=== PATIENT | female | born 1940 | race Caucasian/White ===

== ENCOUNTER → 2018-02-26 13:18 | Outpatient (CLI) | payer MEDICARE, MEDICAID, SELFPAY ==
[2018-02-26 14:45] LABS: Ferritin 27 ng/mL (8-388)
== END ==
PROVIDERS: PCP Nurse Practitioner; Visit Provider Nurse Practitioner
DX: M25.50 Pain in unspecified joint (principal)
CPT/HCPCS: 82728

== ENCOUNTER → 2018-03-08 14:25 | Outpatient (CLI) | payer MEDICARE, MEDICAID, SELFPAY ==
--- NOTE | 2018-03-08 14:27 | DI.REPORT_ITS ---
SYMPTOMS/DIAGNOSIS: RT SHOULDER JOINT PAIN, M25.511 RIGHT SHOULDER: Six views were obtained. The bones are markedly demineralized. There are degenerative changes of the acromioclavicular and glenohumeral joints. There is no evidence of acute fracture or dislocation.
== END ==
PROVIDERS: PCP Nurse Practitioner; Visit Provider Nurse Practitioner
DX: M25.511 Pain in right shoulder (principal); M19.011 Primary osteoarthritis, right shoulder
CPT/HCPCS: 73030

== ENCOUNTER 2018-03-16 12:47 | Outpatient (REF) | payer MEDICARE, MEDICAID, SELFPAY ==
[2018-03-16 19:00] LABS: HCT 39.6 % (36.0-46.0); HGB 12.3 g/dL (12.0-15.5); Mean Corp. HGB Concentration 31.1 g/dL (32.0-36.0); Mean Corpuscular Hemoglobin 27.8 pg (27.0-33.0); Mean Corpuscular Volume 89.6 fL (80-95); Mean Platelet Volume 11.3 fL (8.0-11.0); Platelet Count 202 x1000/uL (130-400); RBC 4.42 m/cumm (4.00-5.20); RBC Distribution Width 16.2 % (11.7-14.6); White Blood Cell Count 6.76 k/cumm (4.4-10.8)
[2018-03-16 19:08] LABS: Iron 72 ug/dL (50-175); Total Iron Binding Capacity 376 ug/dL (250-450); Transferrin Sat 19 % (15-50)
[2018-03-16 19:36] LABS: Ferritin 36 ng/mL (8-388); Vitamin B12 653 pg/mL (193-986)
[2018-03-18 11:01] LABS: Vitamin D 25 Total 15.9 ng/ml (30-100)
== END 2018-03-16 12:48 ==
LOC: NCHCN 12:47
PROVIDERS: PCP Nurse Practitioner; Visit Provider Nurse Practitioner
DX: E61.1 Iron deficiency (principal); N18.3 Chronic kidney disease, stage 3 (moderate)
CPT/HCPCS: 82306; 85027; 82607; 82728; 83540; 83550

== ENCOUNTER 2018-04-02 19:39 | Emergency (ER) | payer MEDICARE, MEDICAID, SELFPAY ==
[2018-04-02 19:44] VITALS: BP 176/78; PULSE 64; RESP 18; TEMP 36.4; O2SAT 96
== END 2018-04-02 20:55 ==
PROVIDERS: PCP Nurse Practitioner
DX: Z53.21 Procedure and treatment not carried out due to patient leaving prior to being seen by health care provider (principal)

== ENCOUNTER → 2018-04-03 10:41 | Outpatient (BNVA) | payer MEDICARE, MEDICAID, SELFPAY | PROVIDERS: PCP Nurse Practitioner; Visit Provider Urology | DX: N39.0 Urinary tract infection, site not specified (principal); B96.20 Unspecified Escherichia coli [E. coli] as the cause of diseases classified elsewhere; R33.9 Retention of urine, unspecified; Z87.440 Personal history of urinary (tract) infections | CPT/HCPCS: 99213 ==

== ENCOUNTER 2018-04-03 11:38 | Emergency (ER) | payer MEDICARE, MEDICAID, SELFPAY ==
[2018-04-03 11:44] VITALS: BP 139/72; PULSE 69; RESP 16; TEMP 37
--- NOTE | 2018-04-03 11:58 | DI.RAD_ITS ---
SYMPTOMS/DIAGNOSIS: PAIN, FALL RIGHT HUMERUS: There is no evidence of a fracture or dislocation. RIGHT SHOULDER: Degenerative changes are identified. There is no evidence of an acute fracture or dislocation.
--- NOTE | 2018-04-03 12:16 | W.ED.GENAD ---
Discharge Plan Disposition Patient Disposition: HOME Condition: Stable Discharge Details Chief Complaint: Orthopedic Clinical Impression: Osteoarthritis of right shoulder, Contusion of arm, right Primary Care Provider: Sabine Ludwig ED Provider: Jonas Cowart Home Meds and New Rx's Prescriptions: Continue cephalexin [Keflex] 250 mg capsule 250 mg PO Q8H Qty: 15 RF: 0 levothyroxine 200 MCG tablet 200 mcg PO DAILY RF: 0 meclizine 12.5 MG tablet 25 mg PO DAILY PRNRF: 0 magnesium hydroxide [Milk of Magnesia] 400 MG/5 ML suspension 5 ml PO PRN RF: 0 bupropion HCl [Wellbutrin SR] 100 MG tablet extended release 12 hr 100 mg PO DAILY RF: 0 fluoxetine [Prozac] 20 MG capsule 40 mg PO DAILY RF: 0 estradiol [Estrace] 42.5 GM cream 2 g VG twice weekly Qty: 1 RF: 0 hydrocortisone 28.35 GM cream 1 applic Topical BID 30 Days Qty: 1 RF: 0 clobetasol-emollient 15 GM cream 15 gm Topical BID Qty: 1 RF: 3 isosorbide mononitrate 30 MG tablet extended release 24 hr 30 mg PO DAILY RF: 0 omeprazole 20 MG capsule,delayed release(DR/EC) 40 mg PO DAILY@0730 RF: 0 rosuvastatin [Crestor] 10 MG tablet 10 mg PO QPM RF: 0 ropinirole 1 mg Tablet 1 mg PO DAILY RF: 0 acetaminophen 500 mg Tablet 1,000 mg PO BID RF: 0 aspirin 81 mg Tablet,Chewable 81 mg PO DAILY RF: 0 Discharge Instructions Instructions: Contusion in Adults (ED), Arthritis (ED) Additional Instructions: If not improving over the next 2-4 weeks follow-up with your primary care provider for reassessment. Referrals: Sabine Ludwig [Primary Care Provider] - (As needed for reassessment or if not improving) Discharge Data Discharge Date/Time-TO BE ENTERED AT DEPARTURE: 04/03/18 13:33 Medical Decision Making MDM Narrative Medical decision making narrative: Patient presenting to emergency department status post fall 1 month ago. Daughters states that patient has significant severe dementia but has been continuing to complain of right shoulder and arm pain. She states that patient is alert and oriented to person only but also does exaggerate pain response. She is concerned for possible missed fracture as initially patient had not been complaining of discomfort to her shoulder more to her neck. Physical exam does reveal some pain to palpation to the shoulder which is difficult to isolate and painful range of motion of the shoulder. Patient is able to perform all range of motion activities but due to discomfort and tenderness to shoulder height do feel that radiological imaging is warranted. Review of radiological imaging that shows no acute fracture but does show significant degenerative disease I feel that patient's fall may have aggravated her arthritis. Family was encouraged to continue use already prescribed acetaminophen for her arthritis and if not improving over the next couple weeks to follow-up for reassessment. After discussion of diagnosis and plan of care daughter states that she feels reassured that there is no fracture and agrees with plan of care and states no further needs, questions, or concerns at this time. HPI - General Adult General Mode of arrival: ambulatory. Date/Time Provider Initiated Documentation: 04/03/18 11:47. Limitations to Documentation: no limitations. Information obtained by: patient, family, RN notes reviewed and old records reviewed. History of Present Illness 77 year old F presents to the emergency department with the chief complaint of Right shoulder pain status post fall, described as moderate, with intensity rated at 7. Quality is described as aching, and is localized to the right and upper extremity. Patient reports no radiation. Patient started experiencing this month(s) (1) and it has been constant. No relieving factors improve symptom(s), No exacerbating factors reported . Patient notes no other symptoms.. Patient did receive the following treatments prior to arrival, none Related Data Home Medications Medication Instructions Recorded Confirmed levothyroxine 200 mcg PO DAILY tab-cap 08/11/14 04/03/18 meclizine 25 mg PO DAILY PRN tab-cap 10/01/15 04/03/18 isosorbide mononitrate 30 mg PO DAILY 10/12/15 04/03/18 omeprazole 40 mg PO DAILY@0730 10/12/15 04/03/18 bupropion HCl [Wellbutrin SR] 100 mg PO DAILY 12/15/17 04/03/18 fluoxetine [Prozac] 40 mg PO DAILY tab-cap 12/15/17 04/03/18 magnesium hydroxide [Milk of 5 ml PO PRN ml 12/15/17 04/03/18 Magnesia] rosuvastatin [Crestor] 10 mg PO QPM 01/26/18 04/03/18 acetaminophen 1,000 mg PO BID 04/02/18 04/03/18 ropinirole 1 mg PO DAILY 04/02/18 04/03/18 aspirin 81 mg PO DAILY 04/03/18 04/03/18 Previous Rx's Medication Instructions Recorded estradiol [Estrace] 2 g VG twice weekly #1 tube 12/28/17 clobetasol-emollient 15 gm TOPICAL BID #1 tube 01/25/18 hydrocortisone 1 applic TOPICAL BID 30 Days #1 gm 01/25/18 cephalexin 250 mg capsule 250 mg PO Q8H #15 cap 04/03/18 Allergies Allergy/AdvReac Type Severity Reaction Status Date / Time influenza virus vaccine, Allergy Severe SOB Unverified 04/03/18 11:47 specific [Influenza Virus Vacc,Specific] fentanyl [From Duragesic] Allergy Intermediate Hives Unverified 04/03/18 11:47 hydrocodone Allergy Intermediate Itching Unverified 04/03/18 11:47 codeine [Codeine] AdvReac Severe Psychosis Unverified 04/03/18 12:00 General Stated Complaint: Orthopedic YADI: 4 Review of Systems Constitutional Denies body ache(s), Denies chills and Denies fever(s) Cardiovascular Denies chest pain and Denies dyspnea Respiratory Denies dyspnea Gastrointestinal Denies abdominal pain, Denies nausea and Denies vomiting Musculoskeletal Reports as per HPI, Reports myalgias (Right upper arm) and Reports arthralgias (Right upper arm) Neurologic Reports confusion and Denies sensory deficit Psychiatric Reports confusion Hematologic/Lymphatic Reports other (Ecchymosis to right upper arm) PFSH Social History Smoking/Tobacco Use Status: Former Tobacco Use alcohol intake: former substance use type: does not use Surgical History Abdominal hysterectomy Wilks (Incontinence sling) Cerebral aneurysm clipping Colonoscopy - MAC EGD - MAC Open Carpal Tunnel release (11/25/15) Repair of inguinal hernia Replacement of total knee joint venacaval filter Exam Const General: cooperative, no acute distress and not ill appearing Orientation: alert and awake HENMT Mouth: moist mucous membranes Resp Effort & Inspection: normal respiratory effort, able to speak in complete sentences and no respiratory distress Auscultation: clear to auscultation bilaterally Cardio Rate: regular rate Rhythm: regular rhythm Heart Sounds: S1 normal and S2 normal Skin General skin exam: no rashes or lesions noted Neuro General: alert, awake, not oriented x3, moves all extremities and no focal motor deficits Sensory Exam: no sensory deficits noted Extrem Right upper extremity: shoulder/upper arm Details: tenderness Location: of the A-C joint, of the proximal humerus and of the scapula and abnormal ROM Details: pain with active ROM Details: in ABduction and in extension and pain with passive ROM Details: with ABduction and with extension, elbow/forearm Details: normal to inspection, wrist Details: normal to inspection and hand Details: normal to inspection Left upper extremity: normal to inspection Course Vital Signs Temperature 37 C 04/03/18 11:44 Pulse 69 04/03/18 11:44 Respiratory Rate 16 04/03/18 11:44 Blood Pressure 139/72 04/03/18 11:44 Temperature 37 C 04/03/18 11:44 Pulse 69 04/03/18 11:44 Respiratory Rate 16 04/03/18 11:44 Blood Pressure 139/72 04/03/18 11:44
--- NOTE | 2018-04-03 12:20 | ED.GENADUL_ITS ---
Discharge Plan Disposition Patient Disposition: HOME Condition: Stable Discharge Details Chief Complaint: Orthopedic Clinical Impression: Osteoarthritis of right shoulder, Contusion of arm, right Primary Care Provider: Sabine Ludwig ED Provider: Jonas Cowart Home Meds and New Rx's Prescriptions: Continue cephalexin [Keflex] 250 mg capsule 250 mg PO Q8H Qty: 15 RF: 0 levothyroxine 200 MCG tablet 200 mcg PO DAILY RF: 0 meclizine 12.5 MG tablet 25 mg PO DAILY PRNRF: 0 magnesium hydroxide [Milk of Magnesia] 400 MG/5 ML suspension 5 ml PO PRN RF: 0 bupropion HCl [Wellbutrin SR] 100 MG tablet extended release 12 hr 100 mg PO DAILY RF: 0 fluoxetine [Prozac] 20 MG capsule 40 mg PO DAILY RF: 0 estradiol [Estrace] 42.5 GM cream 2 g VG twice weekly Qty: 1 RF: 0 hydrocortisone 28.35 GM cream 1 applic Topical BID 30 Days Qty: 1 RF: 0 clobetasol-emollient 15 GM cream 15 gm Topical BID Qty: 1 RF: 3 isosorbide mononitrate 30 MG tablet extended release 24 hr 30 mg PO DAILY RF: 0 omeprazole 20 MG capsule,delayed release(DR/EC) 40 mg PO DAILY@0730 RF: 0 rosuvastatin [Crestor] 10 MG tablet 10 mg PO QPM RF: 0 ropinirole 1 mg Tablet 1 mg PO DAILY RF: 0 acetaminophen 500 mg Tablet 1,000 mg PO BID RF: 0 aspirin 81 mg Tablet,Chewable 81 mg PO DAILY RF: 0 Discharge Instructions Instructions: Contusion in Adults (ED), Arthritis (ED) Additional Instructions: If not improving over the next 2-4 weeks follow-up with your primary care provider for reassessment. Referrals: Sabine Ludwig [Primary Care Provider] - (As needed for reassessment or if not improving) Discharge Data Discharge Date/Time-TO BE ENTERED AT DEPARTURE: 04/03/18 13:33 Medical Decision Making MDM Narrative Medical decision making narrative: Patient presenting to emergency department status post fall 1 month ago. Daughters states that patient has significant severe dementia but has been continuing to complain of right shoulder and arm pain. She states that patient is alert and oriented to person only but also does exaggerate pain response. She is concerned for possible missed fracture as initially patient had not been complaining of discomfort to her shoulder more to her neck. Physical exam does reveal some pain to palpation to the shoulder which is difficult to isolate and painful range of motion of the shoulder. Patient is able to perform all range of motion activities but due to discomfort and tenderness to shoulder height do feel that radiological imaging is warranted. Review of radiological imaging that shows no acute fracture but does show significant degenerative disease I feel that patient's fall may have aggravated her arthritis. Family was encouraged to continue use already prescribed acetaminophen for her arthritis and if not improving over the next couple weeks to follow-up for reassessment. After discussion of diagnosis and plan of care daughter states that she feels reassured that there is no fracture and agrees with plan of care and states no further needs, questions, or concerns at this time. HPI - General Adult General Mode of arrival: ambulatory . Date/Time Provider Initiated Documentation: 04/03/18 11:47 . Limitations to Documentation: no limitations . Information obtained by: patient, family, RN notes reviewed and old records reviewed . History of Present Illness 77 year old F presents to the emergency department with the chief complaint of Right shoulder pain status post fall, described as moderate, with intensity rated at 7. Quality is described as aching, and is localized to the right and upper extremity. Patient reports no radiation. Patient started experiencing this month(s) (1) and it has been constant. No relieving factors improve symptom(s), No exacerbating factors reported . Patient notes no other symptoms.. Patient did receive the following treatments prior to arrival, none Related Data Home Medications Medication Instructions Recorded Confirmed levothyroxine 200 mcg PO DAILY tab-cap 08/11/14 04/03/18 meclizine 25 mg PO DAILY PRN tab-cap 10/01/15 04/03/18 isosorbide mononitrate 30 mg PO DAILY 10/12/15 04/03/18 omeprazole 40 mg PO DAILY@0730 10/12/15 04/03/18 bupropion HCl [Wellbutrin SR] 100 mg PO DAILY 12/15/17 04/03/18 fluoxetine [Prozac] 40 mg PO DAILY tab-cap 12/15/17 04/03/18 magnesium hydroxide [Milk of 5 ml PO PRN ml 12/15/17 04/03/18 Magnesia] rosuvastatin [Crestor] 10 mg PO QPM 01/26/18 04/03/18 acetaminophen 1,000 mg PO BID 04/02/18 04/03/18 ropinirole 1 mg PO DAILY 04/02/18 04/03/18 aspirin 81 mg PO DAILY 04/03/18 04/03/18 Previous Rx's Medication Instructions Recorded estradiol [Estrace] 2 g VG twice weekly #1 tube 12/28/17 clobetasol-emollient 15 gm TOPICAL BID #1 tube 01/25/18 hydrocortisone 1 applic TOPICAL BID 30 Days #1 gm 01/25/18 cephalexin 250 mg capsule 250 mg PO Q8H #15 cap 04/03/18 Allergies Allergy/AdvReac Type Severity Reaction Status Date / Time influenza virus vaccine, Allergy Severe SOB Unverified 04/03/18 11:47 specific [Influenza Virus Vacc,Specific] fentanyl [From Duragesic] Allergy Intermediate Hives Unverified 04/03/18 11:47 hydrocodone Allergy Intermediate Itching Unverified 04/03/18 11:47 codeine [Codeine] AdvReac Severe Psychosis Unverified 04/03/18 12:00 General Stated Complaint: Orthopedic YADI: 4 Review of Systems Constitutional Denies body ache(s), Denies chills and Denies fever(s) Cardiovascular Denies chest pain and Denies dyspnea Respiratory Denies dyspnea Gastrointestinal Denies abdominal pain, Denies nausea and Denies vomiting Musculoskeletal Reports as per HPI, Reports myalgias (Right upper arm) and Reports arthralgias ( Right upper arm) Neurologic Reports confusion and Denies sensory deficit Psychiatric Reports confusion Hematologic/Lymphatic Reports other (Ecchymosis to right upper arm) PFSH Social History Smoking/Tobacco Use Status: Former Tobacco Use alcohol intake: former substance use type: does not use Surgical History Abdominal hysterectomy Wilks (Incontinence sling) Cerebral aneurysm clipping Colonoscopy - MAC EGD - MAC Open Carpal Tunnel release (11/25/15) Repair of inguinal hernia Replacement of total knee joint venacaval filter Exam Const General: cooperative, no acute distress and not ill appearing Orientation: alert and awake HENMT Mouth: moist mucous membranes Resp Effort & Inspection: normal respiratory effort, able to speak in complete sentences and no respiratory distress Auscultation: clear to auscultation bilaterally Cardio Rate: regular rate Rhythm: regular rhythm Heart Sounds: S1 normal and S2 normal Skin General skin exam: no rashes or lesions noted Neuro General: alert, awake, not oriented x3, moves all extremities and no focal motor deficits Sensory Exam: no sensory deficits noted Extrem Right upper extremity: shoulder/upper arm Details: tenderness Location: of the A -C joint, of the proximal humerus and of the scapula and abnormal ROM Details: pain with active ROM Details: in ABduction and in extension and pain with passive ROM Details: with ABduction and with extension, elbow/forearm Details: normal to inspection, wrist Details: normal to inspection and hand Details: normal to inspection Left upper extremity: normal to inspection Course Vital Signs Temperature 37 C 04/03/18 11:44 Pulse 69 04/03/18 11:44 Respiratory Rate 16 04/03/18 11:44 Blood Pressure 139/72 04/03/18 11:44 Temperature 37 C 04/03/18 11:44 Pulse 69 04/03/18 11:44 Respiratory Rate 16 04/03/18 11:44 Blood Pressure 139/72 04/03/18 11:44
== END 2018-04-03 13:33 | disposition home or self-care (01) ==
PROVIDERS: Emergency Provider Nurse Practitioner Family; PCP Nurse Practitioner
DX: M19.011 Primary osteoarthritis, right shoulder (principal); S40.021A Contusion of right upper arm, initial encounter; W01.0XXA Fall on same level from slipping, tripping and stumbling without subsequent striking against object, initial encounter; F03.90 Unspecified dementia, unspecified severity, without behavioral disturbance, psychotic disturbance, mood disturbance, and anxiety
CPT/HCPCS: 99213; 99284; 73030; 73060; 99282

== ENCOUNTER 2018-04-03 16:45 | Outpatient (REF) | payer MEDICARE, MEDICAID, SELFPAY | END 2018-04-03 17:05 | LOC: LBN 16:45 | PROVIDERS: PCP Nurse Practitioner; Visit Provider Urology | DX: N39.0 Urinary tract infection, site not specified (principal) | CPT/HCPCS: 87077; 87086; 87186 ==

== ENCOUNTER → 2018-05-22 08:30 | Outpatient (BNVA) | payer MEDICARE, MEDICAID, SELFPAY | PROVIDERS: PCP Nurse Practitioner; Referring Provider Nurse Practitioner; Visit Provider Orthopaedic Surgery | DX: G56.01 Carpal tunnel syndrome, right upper limb (principal) | CPT/HCPCS: 20605; 99211; 99213; J1040 ==

== ENCOUNTER → 2018-12-21 15:01 | Outpatient (BNVA) | payer MEDICARE, MEDICAID, SELFPAY | PROVIDERS: PCP Nurse Practitioner; Visit Provider Urology | DX: R33.9 Retention of urine, unspecified (principal); Z87.440 Personal history of urinary (tract) infections; J44.9 Chronic obstructive pulmonary disease, unspecified | CPT/HCPCS: 99213 ==

== ENCOUNTER 2019-01-28 08:23 | Emergency (ER) | payer MEDICARE, MEDICAID, SELFPAY ==
[2019-01-28 08:30] VITALS: PULSE 89; RESP 18; TEMP 36.4; O2SAT 96
--- NOTE | 2019-01-28 08:42 | DI.RAD_ITS ---
SYMPTOMS/DIAGNOSIS: FALL ON OUTSTRETCHED HAND, PAIN DISTAL ULNA RIGHT WRIST: Three views. No acute fracture or dislocation is seen. There are degenerative changes seen in the wrist, particularly the distal radial ulnar joint. No radiopaque foreign bodies are seen in the soft tissues. IMPRESSION: No acute fracture or dislocation.
--- NOTE | 2019-01-28 09:26 | ED.GENADUL_ITS ---
Discharge Plan Disposition Patient Disposition: HOME Condition: Good Discharge Details Chief Complaint: Orthopedic Clinical Impression: Right wrist sprain, Hand tingling Primary Care Provider: Sabine Ludwig ED Provider: Charan Sorensen Home Meds and New Rx's Prescriptions: No Action cephalexin [Keflex] 250 mg capsule 250 mg PO Q8H Qty: 15 RF: 0 levothyroxine 200 MCG tablet 200 mcg PO DAILY RF: 0 bupropion HCl [Wellbutrin SR] 100 MG tablet extended release 12 hr 100 mg PO DAILY RF: 0 fluoxetine [Prozac] 20 MG capsule 40 mg PO DAILY RF: 0 meclizine 12.5 mg tablet 12.5 mg PO DAILY PRN (Reason: dizziness) Qty: 90 RF: 1 isosorbide mononitrate 30 MG tablet extended release 24 hr 30 mg PO DAILY RF: 0 omeprazole 20 MG capsule,delayed release(DR/EC) 40 mg PO DAILY@0730 RF: 0 rosuvastatin [Crestor] 10 MG tablet 10 mg PO QPM RF: 0 aspirin 81 mg Tablet,Chewable 81 mg PO DAILY RF: 0 Discharge Instructions Instructions: Wrist Sprain (ED) Additional Instructions: Your x-rays at this time show no evidence of significant fracture per radiology, however with your continued pain as well as her tingling we recommend that you continue using your wrist splint, and follow-up with orthopedics. Orthopedics will contact you for your appointment. Please continue to take Tylenol as needed for pain. If you notice any worsening of your symptoms, or any new symptoms such as vomiting, diarrhea, fever, chills, shortness of breath, chest pain, numbness, weakness, or fainting , please return immediately to the emergency department for reevaluation. Please follow up with your primary care provider as soon as possible for reassessment and reevaluation. As always, it was a pleasure participating in your medical care today. Referrals: Sabine Luwdig [Primary Care Provider] - Discharge Data Discharge Date/Time-TO BE ENTERED AT DEPARTURE: 01/28/19 09:36 Medical Decision Making This is a pleasant 78-year-old female who is [id number] who presents today for evaluation of right wrist pain. 1 week ago she experienced a FOOSH, and since then has had pain in her wrist exacerbated by movement of her thumb, movement of her wrist and gripping. She has been wearing a wrist splint since the initial event, and has been taking occasional NSAIDs but this is not improved her pain. She also has subjective tingling in all fingers, not just over the median nerve distribution. Exam demonstrates reproducible tenderness at the distal radius and ulna, as well as the proximal aspect of the medial and lateral carpals. There is also tenderness over the anatomical snuffbox. Sensation appears to be intact despite subjective tingling. X-ray was performed and shows no evidence of acute fracture or other abnormality. There is a small atypical component on the oblique view of the distal radius, however review with Dr. Rivero states that there is no evidence of fracture here. Patient will be continued in her splint, and because of her subjective tingling and continued pain we will refer to orthopedics. I suspect mild carpal tunnel exacerbation with her sensation tingling, however the distribution is atypical for just the median nerve alone. There is also concern for scaphoid injury with the location of her pain and tenderness, however the patient is preferring her current splint, which I do feel is reasonably appropriate at this time with her injury pattern. We will recommend close follow-up with orthopedics. We discussed red flags which to return. I have extensively reviewed the treatment plan and discharge instructions with the patient and their family. I have addressed all patient concerns at this time. The patient and family was made aware of what symptoms to monitor for that would warrant a return to the emergency department. Discussed the plan with the patient and family, they demonstrate verbal understanding and agreement with our assessment and plan at this time. HPI General Date/Time Provider Initiated Documentation: 01/28/19 08:24 . HPI Narrative: This is a 78-year-old female with a past medical history of renal insufficiency, previous GI bleeds, hypothyroidism, who presents today for evaluation of right wrist pain. She is right-hand dominant. 1 week ago she fell on an outstretched hand. At that time she described pain in her lateral wrist at the distal radius, and ulna. Pain is notably made worse with movement of her thumb and fingers. She has some associating tingling in all fingers, including the thumb index and third fourth and fifth digits. She has been taking occasional NSAIDs, and has been wearing a home wrist splint at all times. Unfortunately in spite of this the patient's pain continues. It is made worse with movement, gripping, and use. It does not appear to be particularly improved by anything. She denies any pain in the forearm or elbow. She denies any pain in the hand or fingers. She has no other complaints at this time. No other modifying factors. Related Data Home Medications Medication Instructions Recorded Confirmed levothyroxine 200 mcg PO DAILY tab-cap 08/11/14 01/28/19 isosorbide mononitrate 30 mg PO DAILY 10/12/15 01/28/19 omeprazole 40 mg PO DAILY@0730 10/12/15 01/28/19 bupropion HCl [Wellbutrin SR] 100 mg PO DAILY 12/15/17 01/28/19 fluoxetine [Prozac] 40 mg PO DAILY tab-cap 12/15/17 01/28/19 rosuvastatin [Crestor] 10 mg PO QPM 01/26/18 01/28/19 aspirin 81 mg PO DAILY 04/03/18 01/28/19 meclizine 12.5 mg tablet 12.5 mg PO DAILY PRN #90 tab-cap 10/01/18 01/28/19 cephalexin 250 mg capsule 250 mg PO Q8H #15 cap 12/21/18 01/28/19 Previous Rx's Medication Instructions Recorded meclizine 12.5 mg tablet 12.5 mg PO DAILY PRN #90 tab-cap 10/01/18 cephalexin 250 mg capsule 250 mg PO Q8H #15 cap 12/21/18 Allergies Allergy/AdvReac Type Severity Reaction Status Date / Time influenza virus vaccine, Allergy Severe SOB Unverified 04/03/18 11:47 specific [Influenza Virus Vacc,Specific] fentanyl [From Duragesic] Allergy Intermediate Hives Unverified 04/03/18 11:47 hydrocodone Allergy Intermediate Itching Unverified 04/03/18 11:47 codeine [Codeine] AdvReac Severe Psychosis Unverified 04/03/18 12:00 General Stated Complaint: Orthopedic YADI: 4 Review of Systems Review of Systems All systems reviewed & are unremarkable except as noted in HPI and below PFSH Social History Smoking/Tobacco Use Status: Former Tobacco Use Alcohol Intake: former Drug use: Never Substance use type: does not use Caregiver/Support person: Yes Household members: family Housing: house Number of Children: 2 number of grandchildren: 5 Pets and animals: Yes What is your relationship status?: How often do you talk on the phone with friends or family?: three or more times per week How often do you get together with friends or relatives?: three or more times per week Panel score (0-1 are the most socially isolated patients): 1 What type of physical activity do you participate in: walking and irregular exercise Agree to transfusion: Yes Do you feel safe in your relationship?: Yes Exam Narrative Exam Narrative: 1.Const: Well-nourished, Well-developed, appearing stated age 2.Eyes: PERRL, no conjunctival injection, and symmetrical lids. 3.ENT: Atraumatic external nose and ears. Moist MM. Neck: Symmetric, trachea midline, No thyromegaly. 4.CVS: +S1/S2, No murmurs or gallops. Peripheral pulses 2+ and equal in all extremities. Brisk capillary refill in all extremities. 5.RESP: Unlabored respiratory effort. Clear to auscultation bilaterally. No wheezes rales or rhonchi 6.GI: Soft, Nontender/Nondistended, No hepatosplenomegaly. No guarding or rebound. 7.MSK: Normocephalic/Atraumatic, Extremities w/o deformity right wrist: NO cyanosis or clubbing, notable tenderness at the distal radius, anatomical snuffbox, distal ulna. Pain is also notable that the medial and lateral carpals. Pain is made worse with movement of the thumb, as well as movement of the fingers and cigarette vendor. Subjective tingling noted throughout, however two-point discrimination up to 3 mm on my exam at this time appears intact for all fingers. Brisk capillary refill. Patient is able to demonstrate abduction adduction flexion and extension of the thumb however this notably worsens her pain. Microelectronics Assembler strength appears to be reduced secondary to pain. Patient demonstrates good spreading of the fingers. 8.Skin: Warm, Dry. No rashes or lesions. 9.Neuro: marketing communications associate II-XII grossly intact. Sensation grossly intact, no focal neurologic deficits. Please see musculoskeletal 10.Psych: (AAO) x3. Appropriate mood and affect Course Vital Signs Temperature 36.4 C 01/28/19 08:30 Pulse 89 01/28/19 08:30 Respiratory Rate 18 01/28/19 08:30 Pulse Oximetry 96 01/28/19 08:30 Temperature 36.4 C 01/28/19 08:30 Pulse 89 01/28/19 08:30 Respiratory Rate 18 01/28/19 08:30 Respiratory Effort Non-Labored 01/28/19 08:57 Blood Pressure Position Sitting 01/28/19 08:30 Pulse Oximetry 96 01/28/19 08:30 Oxygen Delivery Method Room Air 01/28/19 08:30 Oxygen Flow Rate 0 01/28/19 08:30
[2019-01-28 09:32] VITALS: BP 133/58; PULSE 57; RESP 16; O2SAT 96
== END 2019-01-28 09:36 | disposition home or self-care (01) ==
PROVIDERS: Emergency Provider Student in an Organized Health Care Education/Training Program; PCP Nurse Practitioner
DX: S63.501A Unspecified sprain of right wrist, initial encounter (principal); R20.2 Paresthesia of skin; W18.39XA Other fall on same level, initial encounter
CPT/HCPCS: 99283; 73110

== ENCOUNTER → 2019-02-05 10:15 | Outpatient (BNVA) | payer MEDICARE, MEDICAID, SELFPAY | PROVIDERS: PCP Nurse Practitioner; Referring Provider Nurse Practitioner; Visit Provider Orthopaedic Surgery | DX: M65.4 Radial styloid tenosynovitis [de Quervain] (principal); W19.XXXA Unspecified fall, initial encounter | CPT/HCPCS: 99201; 99213; L3809; L3807 ==

== ENCOUNTER → 2019-03-05 09:36 | Outpatient (BNVA) | payer MEDICARE, MEDICAID, SELFPAY | PROVIDERS: PCP Nurse Practitioner; Referring Provider Nurse Practitioner; Visit Provider Orthopaedic Surgery | DX: M65.4 Radial styloid tenosynovitis [de Quervain] (principal); J44.9 Chronic obstructive pulmonary disease, unspecified; Z87.891 Personal history of nicotine dependence | CPT/HCPCS: 99213 ==

== ENCOUNTER 2019-03-11 08:51 | Day surgery (SDC) | payer MEDICARE, MEDICAID, SELFPAY ==
[2019-03-11 09:13] VITALS: BP 174/95; PULSE 73; RESP 16; TEMP 36; O2SAT 93
[2019-03-11] MEDS: Lactated Ringers 1,000 ML 80 ML IV (09:44)
--- NOTE | 2019-03-11 13:24 | W.PM.DSUDISC ---
Discharge Plan Disposition Patient Disposition: HOME Condition: Good Discharge Details Reason For Visit: Release of first dorsal extensor compartment R Attending Provider: El Ho Primary Care Provider: Sabine Ludwig Home Meds and New Rx's Prescriptions: Continued cholecalciferol (vitamin D3) 1,000 unit capsule 1,000 unit PO DAILY RF: 0 levothyroxine 200 MCG tablet 200 mcg PO DAILY RF: 0 bupropion HCl [Wellbutrin SR] 100 MG tablet extended release 12 hr 100 mg PO DAILY RF: 0 fluoxetine [Prozac] 20 MG capsule 40 mg PO DAILY RF: 0 meclizine 12.5 mg tablet 12.5 mg PO HS Qty: 90 RF: 1 isosorbide mononitrate 30 MG tablet extended release 24 hr 30 mg PO DAILY RF: 0 omeprazole 20 MG capsule,delayed release(DR/EC) 40 mg PO DAILY@0730 RF: 0 rosuvastatin [Crestor] 10 MG tablet 10 mg PO QPM RF: 0 aspirin 81 mg Tablet,Chewable 81 mg PO HS RF: 0 Discharge Instructions Additional Instructions: Keep dressings and splint dry and in place for 5 days. After 5 days, remove splint AND dressings and begin to move R wrist. After you remove dressings in 5 days, may shower or bathe and get incision wet. Leave incision uncovered when it is dry and sealed. Use R hand as much as your discomfort allows. Take tylenol or ibuprofen for pain, if needed. Follow up with in 2 weeks. Referrals: El Ho MD [ [facility] STAFF PHYSICIAN] - (f/u in 2 weeks.) Equipment/Supplies: Splint Activity:: Activity as Tolerated Diet:: As Tolerated Discharge Orders Discharge Orders: Discharge Order (Routine); Ordered 03/11/19 Ordered By: El Ho DS: Diagnosis Discharge Diagnosis (1) Radial styloid tenosynovitis [de quervain]: Status: Acute
[2019-03-11 14:05] VITALS: BP 142/74; PULSE 63; RESP 14; TEMP 36.5; O2SAT 94
--- NOTE | 2019-03-12 06:53 | ROE_ITS ---
REPORT OF OPERATIVE PROCEDURE DATE OF PROCEDURE March 11, 2019 PREOPERATIVE DIAGNOSIS De Quervain's tendinitis of the first dorsal extensor compartment right wrist. POSTOPERATIVE DIAGNOSIS De Quervain's tendinitis of the first dorsal extensor compartment right wrist. PROCEDURES 1. Tendon sheath incision at radial styloid for de Quervain's tendinitis right wrist. 2. Application of a short arm thumb spica splint. ANESTHESIA IV regional, Fredy Mota C.R.N.A. SURGEON El Ho M.D. INDICATIONS This is an 78-year-old white female with a several month history of De Quervain's tendinitis of her r ight wrist. She has failed to resolve with conservative treatment of prolonged splinting and antiinfl ammatory medications. She is a right-hand dominant individual and this is interfering with her activi ties of daily living. Surgical release of the first dorsal extensor compartment was recommended to al leviate her pain, eliminate the need for splints and restore good function to her right hand. The risks and complications of the procedure were explained to the patient in detail preoperative. DESCRIPTION OF PROCEDURE The patient was taken to the Operating Room on 03/11/2019. She was placed supine on the operating tabl e. An IV regional anesthetic was administered to the right upper extremity. The right hand, wrist a nd forearm were prepped and draped free in the usual sterile fashion. A longitudinal incision about 3 inches in length was made centered over the first dorsal extensor com partment at the radial styloid. The excision was carried down through the skin to the subcu. Blunt ti p Littler scissors were used to mobilize the terminal branch of the superficial radial nerve away fro m the first dorsal extensor compartment sheath. The sheath of the first dorsal extensor compartment w as then longitudinally incised. There were several tendon slips within the first dorsal extensor comp artment. One of the tendon slips had a separate compartment. The separate compartment was excised. At this point, there was some hypertrophic synovium that was also removed with a rongeur. The wound was irrigated with saline solution. The wound margins were infiltrated with 0.5% Marcaine with epinephrine solution. The subcutaneous vei ns were cauterized. The skin edges were approximated with interrupted #4-0 Nylon sutures. The wound w as dressed with Xeroform gauze, sterile gauze, 4x4s, ABD Pad, wrapped with a Kerlix bandage. Then I applied a short-arm radial thumb spica splint of fiberglass cast material using a 3-inch Guillaume bandage. The patient's IV regional anesthesia was reversed without complications. She was discharged to the Re covery Room in good condition. The patient was later discharged home from the Day Surgery Unit when fully recovered from her IV falguni onal anesthesia. She was given instructions to elevate her right hand above heart level as much as p ossible for the next four or five days. She is to keep her splint and dressings dry and intact for five days. After five days, she is to mariela ve her splint and the dressings and begin to move her right wrist. After five days, she can shower o r bathe and get the incision wet. She can leave the incision uncovered it is dry and sealed. She will take Tylenol or ibuprofen for mild pain if needed. She will followup with Dr. Ho in two weeks.
== END 2019-03-11 14:10 | disposition home or self-care (01) ==
PROVIDERS: PCP Nurse Practitioner; Visit Provider Orthopaedic Surgery
PROC: (CPT 25000; principal; 2019-03-11 10:00)
DX: M65.4 Radial styloid tenosynovitis [de Quervain] (principal); J44.9 Chronic obstructive pulmonary disease, unspecified
CPT/HCPCS: 25000

== ENCOUNTER → 2019-03-26 09:21 | Outpatient (BNVA) | payer MEDICARE, MEDICAID, SELFPAY | PROVIDERS: PCP Nurse Practitioner; Referring Provider Nurse Practitioner; Visit Provider Orthopaedic Surgery | DX: Z47.89 Encounter for other orthopedic aftercare (principal); M65.4 Radial styloid tenosynovitis [de Quervain] ==

== ENCOUNTER 2019-03-27 15:02 | Outpatient (REF) | payer MEDICARE, MEDICAID, SELFPAY ==
[2019-03-27 20:20] LABS: HCT 35.5 % (36.0-46.0); HGB 10.9 g/dL (12.0-15.5); Mean Corp. HGB Concentration 30.7 g/dL (32.0-36.0); Mean Corpuscular Hemoglobin 28.4 pg (27.0-33.0); Mean Corpuscular Volume 92.4 fL (80-95); Mean Platelet Volume 10.7 fL (8.0-11.0); Platelet Count 248 x1000/uL (130-400); RBC 3.84 m/cumm (4.00-5.20); RBC Distribution Width 13.8 % (11.7-14.6)
[2019-03-27 20:49] LABS: ALT 13 U/L (14-59); AST 15 U/L (15-37); Albumin 3.4 g/dL (3.4-5.0); Alkaline Phosphatase 112 U/L (46-116); Anion Gap 10.7 mmol/L (3-11); BUN 15 mg/dL (7-18); Bilirubin, Total 0.4 mg/dL (0.2-1.0); CO2 25.3 mmol/L (21.0-32.0); CREATININE 1.13 mg/dL (0.55-1.02); Calcium 8.1 mg/dL (8.5-10.1); Calculated LDL 46 mg/dL; Chloride 103 mmol/L (98-107); Cholesterol 122 mg/dL (50-200); Estimated GFR 46.33 (mL/min/1.73m2); Glucose 114 mg/dL (70-100); HDL Cholesterol 51 mg/dL (40-60); Potassium 4.4 mmol/L (3.5-5.1); Sodium 139 mmol/L (136-145); TSH (W/Ref FT4) 0.04 uIU/mL (0.36-3.74); Total Protein 6.3 g/dL (6.4-8.2); Triglyceride 126 mg/dL (30-150)
[2019-03-27 21:24] LABS: FREE T4 2.05 ng/dL (0.76-1.46)
[2019-03-28 05:48] LABS: Vitamin D 25 Total 34.4 ng/ml (30-100)
== END 2019-03-27 15:22 ==
LOC: NCHCN 15:02
PROVIDERS: PCP Nurse Practitioner; Visit Provider Nurse Practitioner
DX: N18.3 Chronic kidney disease, stage 3 (moderate) (principal); I10 Essential (primary) hypertension; E03.9 Hypothyroidism, unspecified; E61.1 Iron deficiency; F32.9 Major depressive disorder, single episode, unspecified
CPT/HCPCS: 80053; 80061; 82306; 85027; 84439; 84443

== ENCOUNTER 2019-06-25 12:55 | Outpatient (REF) | payer MEDICARE, MEDICAID, SELFPAY ==
[2019-06-25 19:15] LABS: TSH (W/Ref FT4) 0.03 uIU/mL (0.36-3.74)
[2019-06-25 19:22] LABS: Abs Immature Grans 0.02 k/cumm (0.0-0.09); Absolute Basophil Count 0.03 k/cumm (0.0-0.2); Absolute Eosinophil Count 0.18 k/cumm (0.0-0.7); Absolute Lymphocyte Count 0.87 k/cumm (1.2-3.4); Absolute Monocyte Count 0.68 k/cumm (0.11-0.7); Basophils % 0.4; Eosinophils % 2.7; HCT 35.6 % (36.0-46.0); HGB 10.8 g/dL (12.0-15.5); Immature Grans % 0.3; Lymphocytes % 12.8; Mean Corp. HGB Concentration 30.3 g/dL (32.0-36.0); Mean Corpuscular Hemoglobin 27.8 pg (27.0-33.0); Mean Corpuscular Volume 91.8 fL (80-95); Mean Platelet Volume 10.6 fL (8.0-11.0); Neutrophils % 73.8; Platelet Count 208 x1000/uL (130-400); RBC 3.88 m/cumm (4.00-5.20); RBC Distribution Width 14.5 % (11.7-14.6); White Blood Cell Count 6.78 k/cumm (4.4-10.8)
[2019-06-25 19:33] LABS: FREE T4 2.15 ng/dL (0.76-1.46)
== END 2019-06-25 13:15 ==
LOC: NCHCN 12:55
PROVIDERS: PCP Nurse Practitioner; Visit Provider Nurse Practitioner
DX: E03.9 Hypothyroidism, unspecified (principal); E61.1 Iron deficiency; N18.3 Chronic kidney disease, stage 3 (moderate)
CPT/HCPCS: 84439; 84443; 85025

== ENCOUNTER → 2019-12-03 10:08 | Outpatient (BNVA) | payer MEDICARE, MEDICAID, SELFPAY | PROVIDERS: PCP Nurse Practitioner; Referring Provider Nurse Practitioner; Visit Provider Urology | DX: N39.0 Urinary tract infection, site not specified (principal); B96.1 Klebsiella pneumoniae [K. pneumoniae] as the cause of diseases classified elsewhere; J44.9 Chronic obstructive pulmonary disease, unspecified | CPT/HCPCS: 81003; 99213 ==

== ENCOUNTER 2019-12-03 11:11 | Outpatient (REF) | payer MEDICARE, MEDICAID, SELFPAY | END 2019-12-03 11:31 | LOC: LBN 11:11 | PROVIDERS: PCP Nurse Practitioner; Visit Provider Urology | DX: N39.0 Urinary tract infection, site not specified (principal) | CPT/HCPCS: 87077; 87086; 87186 ==

== ENCOUNTER 2019-12-09 08:04 | Emergency (ER) | payer MEDICARE, MEDICAID, SELFPAY ==
[2019-12-09] VITALS (42 sets, daily range): BP systolic 116–170; BP diastolic 50–130; PULSE 70–101; RESP 16–27; TEMP 36.8–37.1; O2SAT 85–98
--- NOTE | 2019-12-09 08:10 | W.ED.GENAD ---
Discharge Plan Disposition Patient Disposition: HOME Condition: Poor Discharge Details Chief Complaint: GenMedical Clinical Impression: Urinary retention, Renal insufficiency, Urinary obstruction, Pneumonia, Hypoxia, UTI (urinary tract infection), Palliative care patient, Dehydration Primary Care Provider: Sabine Ludwig ED Provider: Therese Diane Home Meds and New Rx's Prescriptions: Continued cholecalciferol (vitamin D3) 1,000 unit capsule 1,000 unit PO DAILY RF: 0 sulfamethoxazole-trimethoprim [Sulfatrim] 200-40 mg/5 mL suspension 20 ml PO BID Qty: 473 RF: 0 levothyroxine 200 MCG tablet 200 mcg PO DAILY RF: 0 bupropion HCl [Wellbutrin SR] 100 MG tablet extended release 12 hr 100 mg PO DAILY RF: 0 fluoxetine [Prozac] 20 MG capsule 40 mg PO DAILY RF: 0 meclizine 12.5 mg tablet 12.5 mg PO HS Qty: 90 RF: 1 isosorbide mononitrate 30 MG tablet extended release 24 hr 30 mg PO DAILY RF: 0 omeprazole 20 MG capsule,delayed release(DR/EC) 40 mg PO DAILY@0730 RF: 0 rosuvastatin [Crestor] 10 MG tablet 10 mg PO QPM RF: 0 aspirin 81 mg Tablet,Chewable 81 mg PO HS RF: 0 Discharge Instructions Instructions: Dehydration (ED), Be Catheter Placement and Care (ED), Hypoxia (ED), Pneumonia (ED) Additional Instructions: Sheba was dehydrated today. Her labs are improving after hydration. Please continue to encourage water intake. She was noted to be hypoxic, this is likely associated with pneumonia. Antibiotics have been called in to local pharmacy. These will need to be crushed and given in soft foods. Please continue to monitor oxygen. If she become short of breath please bring her back to emergency department. Otherwise, please discussed hypoxia and need for home oxygen further with Dr. Crane tomorrow. Urinary traction infection was again noted. Antibiotics have been adjusted. This will also be covered with what was called into the pharmacy. Be has been placed by nursing staff. Please follow their instructions. Encourage safety as much as possible and limit mobility. Please use wedge pillow at night. Please picker and packer commode as discussed. Please stay in close contact with Dr. Sandoval she will help you move forward with these issues. However, if you develop new or worsening symptoms please seek care urgently once again. Referrals: Sabine Ludwig [Primary Care Provider] - Sheba Sandoval MD [ [facility] STAFF PHYSICIAN] - Discharge Data Discharge Date/Time-TO BE ENTERED AT DEPARTURE: 12/09/19 12:30 Medical Decision Making <KANDI Villanueva - Last Filed: 12/09/19 16:00> Patient is a pleasant 79-year-old female presents due to complaint of failing at home. Daughter reports multiple falls. She has recently been diagnosed with a urinary tract infection was supposed to have had a catheter placed. It is thought that secondary to UTI, patient is been getting up more frequently and has been falling. Patient does have chronic urinary tract obstruction for which she self caths twice per day. This is what she feels presented baseline, over the past week this is greatly increased. Daughter states that she fell particular hard last night striking the left shoulder and left hip. No head trauma, no loss of consciousness. Denies any fevers or chills. Patient denies any chest pain. She endorses shortness of breath x1 week. Daughter reports that she has had a cough over the past week only when sleeping at night. She reports that she naps frequently throughout the day and does not notice a cough during those times. Patient does have 24/ care. Is followed by palliative care. Is having to be able to be discharged home once more medically managed. Daughter seems frustrated regarding not having appropriate supplies at home. This is particularly regarding the catheter as well as a commode for bedside. Patient is also had poor p.o. intake. Daughter reports that much of this is associated with her having esophageal strictures making it difficult for her to swallow. This is a chronic issue. Patient denies any nausea or vomiting. No change in bowel habits. On exam, patient appears chronically unwell but does not appear acutely toxic. She is hypoxic with a pulse ox of 91%. She does have mask on as a more supine position. Will attempt reposition the patient. She is hypertensive with a blood pressure of 170/84. This is fairly baseline for the patient. Pulse of 101. She is evidence of trauma on the left shoulder with ecchymosis posteriorly. She has good range of motion of the left shoulder. She does have tenderness over the left hip this was reported initially. Pain is maximal in the lateral aspect. Did not appreciate any rotational shortening deformity. No ecchymosis over this area. Respiratory exam is concerning for crackles in the right lower lobe. I am concerned for potential aspiration pneumonia as the daughter states that she coughs and chokes frequently. Patient also typically lays on the right side at night. Cardiac exam significant for cardiac murmur. She is 2+ distal pulses in all extremities. No lower extremity edema. Abdomen has mass on the left lower quadrant near incision. This could be postsurgical. Abdominal exam is otherwise benign. Initially, the patient had been endorsing some abdominal discomfort on exam but this does not seem to be reproducible and is forgotten with distraction. No CVA tenderness. Patient is a multitude of issues going on today. Patient remains hypoxic despite readjustment. Oxygen is ranging between 85 to 90% when at rest and optimally positioned. Is not any respiratory distress. Daughter reports that her shortness of breath and hypoxia does seem to have been progressing over the past month. This may be worsening of her chronic obstructive lung disease. Based on the above, I am also concerned for potential pneumonia. Patient did bump up nicely with 2 L nasal cannula and was in the high 90s. Of concern, I am worried about her fall last night and potential injury to the left shoulder or left hip. Plan for x-rays of this. As noted above, I am also concerned potential pneumonia in particular aspiration pneumonia with crackles in the right lower lobe with patient's history. Will obtain chest x-ray in regard to the mass noted on the patient's abdomen, will hold off on further imaging of this. The patient and her family are very clear in regard to goals of care. If this was to be a cancerous mass or other type of lesion, they would not want to undergo surgical intervention so we will forego imaging of this at this time. Will obtain labs. Will place catheter as was previously requested by Dr. Rosenthal. Once evaluation has been completed, plan to touch base with Dr. Sandoval. EKG was reviewed by Dr. Molina. Please see her note regarding findings. It was concerning for ST depressions which are new compared to the 2016 ECG. Again, patient is denying any chest discomfort, nausea, neck pain. Urinalysis shows moderate blood, small leuks, few bacteria. Has been sent for culture. Plan to begin the patient on IV ceftriaxone. With the patient's kidney dysfunction historically, and susceptibility of recent culture to ceftriaxone, will transition back to Keflex. FINDINGS: Lungs: The pulmonary vasculature is congested, and there is mild bilateral interstitial prominence, suggesting edema. Very small right and small left pleural effusions are present, with bibasilar atelectasis and possibly infiltrate. Pleural space: Unremarkable. No pleural effusion. No pneumothorax. Heart/Mediastinum: There is again cardiomegaly. Vasculature: An IVC filter is noted. Bones/joints: Degenerative changes again involve the spine. IMPRESSION: Cardiomegaly and interstitial edema with very small right and small left pleural effusions. FINDINGS: Bones/joints: There is widening of the acromioclavicular interval up to 2.2 cm. It is unclear whether any portion of the acromioclavicular joint has been resected. The humeral head is high riding in relation to the glenoid. The joint spaces are otherwise normally aligned. No acute fracture is identified. The bones appear osteopenic. There are mild productive changes along the undersurface of the acromion and laterally along the greater tuberosity. Very mild osteophyte formation is present about the glenohumeral joint. Degenerative changes involve the spine. Soft tissues: The soft tissues appear grossly unremarkable. IMPRESSION: 1. No acute fracture identified. 2. Widening of the acromioclavicular interval up to 2.2 cm, could relate to injury, but it is unclear whether any portion of the acromioclavicular joint has been resected. Correlate with any known surgery. 3. Degenerative changes as described. 4. High-riding humeral head in relation to the glenoid, suggesting rotator cuff abnormality. 5. Apparent osteopenia. FINDINGS: Bones/joints: No acute fracture is identified. The left hip joint is normally aligned. Right hip joint alignment cannot be confirmed without a lateral view. The femoral head articular contours are maintained. The bones appear osteopenic. There is mild narrowing of and osteophyte formation about both hip joints. Mild productive changes are present along the greater trochanters. There is also very mild osteophyte formation about the sacroiliac joints, and lower lumbar spondylosis is noted. Soft tissues: Surgical clips overlie the lower pelvis. Phleboliths overlie the pelvis. Vasculature: Atherosclerotic vascular calcifications are noted. IMPRESSION: 1. No acute fracture or left hip joint dislocation identified. MRI would be more sensitive to pelvic and hip fracture as clinically appropriate. 2. Apparent osteopenia. 3. Degenerative changes as described. Labs reviewed. No leukocytosis. Patient stably anemic. Sodium slightly low at 133. Creatinine is elevated 1.64. Patient is typically in the 1.3 range. BUN is elevated at 19. GFR 34. Calcium is low at 7.9. Lactate is elevated at 2.3. Troponin is less than 0.05. Urine is suggestive of urinary tract infection. Care management contacted Dr. Rosenthal and home health has been ordered. Discussed labs and imaging plan labs for with the family and daughter. antiBiotics moving forward will cover for both pneumonia and UTI. Plan use Augmentin and doxycycline. At family request, these prescriptions were called into the pharmacy. These medications did not come in liquid. However, they are able to be crushed per the pharmacist and daughter is aware. They have a wedge pillow available to help with sleep at night. Patient has obstructive sleep apnea but does not tolerate CPAP well so no longer has machine. EKG changes were discussed with the family. Based on goals of care, we will not be pursuing this further at this time, unclear when this is dated from. Troponin was negative. She is not having any symptoms, this may be old and I do not feel that repeat troponin is warranted at this point particular given goals of care. Decision was made to not pursue patient's abdominal mass any further. Her lactate was repeated and is now 0.8. Creatinine is also improving at 1.45, this is down from 1.6 prior to hydration. Patient appears to have pneumonia, UTI, dehydration, EKG changes. Encouraged hydration. Patient has been hypoxic while here but does seem to be tolerating this well. Her baseline is typically in the low 90s. Daughter feels this more of a chronic issue. We did discuss admission for this and daughter would prefer to bring her home in conjunction with the patient goals of care. I have rechecked her respiratory were unable to establish home O2 today. There can continue to work on this and she will discuss this further with Dr. Merino tomorrow. Am hopeful that the antibiotics in setting of pneumonia will help to alleviate some of this hypoxia. I did encourage a wedge pillow to help elevate the head of the bed which may also help with her hypoxia and shortness of breath. Family will contact Dr. Crane tomorrow to schedule close follow-up appointment. All the questions and concerns were addressed in agreement this plan. After to patient was discharged, respiratory therapy [facility] came to the department to let us know there was miscommunication the patient does in fact qualify for home oxygen with her chronic respiratory diagnosis and hypoxia. Patient was less than 88% when at rest. This was intermittent for the patient. She is going to contact the family and [facility] regarding establishing home oxygen for the patient. <Padma Molina MD - Last Filed: 12/09/19 16:17> I have seen and examined the patient and agree with documentation as per KANDI Villanueva. Please see her history and physical. Labs reviewed, lactate elevated, creatinine elevated at 1.6 which is higher than baseline, hemoglobin 11.4 which is baseline for patient, UA concerning for continued UTI. X-ray shows pneumonia. Plan for Augmentin and doxycycline. Patient with hypoxia mid to high 80s in emergency department, responds well to 2 L nasal cannula. Respiratory therapy involved for home O2. Unable to obtain home O2 today for patient. Lengthy discussion was had with myself, Therese Diane, and patient's daughter regarding home O2. Patient's daughter states that she feels very comfortable taking her home at this time and would prefer that she not be admitted to the hospital as this is not consistent with her goals of care. Patient appears comfortable satting 88% on room O2 without respiratory distress. Plan for home O2 to be established tomorrow. I had a lengthy discussion with Patient's daughter regarding return to emergency department precautions, home care, and importance of outpatient follow-up. Pt's daughter verbalizes understanding of the plan and is amenable. Patient discharged to home with clear plan for outpatient follow-up. All questions were answered. Disposition decision was made weighing the risks and benefits of hospitalization versus outpatient treatment, the risk for further decompensation, and the patient's wishes. Medical Records Medical records reviewed: Yes I reviewed the patient's medical records. Lab Data Lab results reviewed: Yes I reviewed the patient's lab results. ECG Data Attestation: I personally reviewed and interpreted this ECG (s) as follows: Interpretation: EKG shows sinus rhythm at 93, normal axis, diffuse ST changes not present on prior 2016, no STEMI, nondiagnostic EKG HPI <KANDI Villanueva - Last Filed: 12/09/19 16:00> General Mode of arrival: wheelchair. Date/Time Provider Initiated Documentation: 12/09/19 08:10. Limitations to Documentation: altered mental status. Information obtained by: patient, family, RN notes reviewed and old records reviewed. HPI Narrative: Patient is a pleasantly confused 79-year-old female, brought in by her daughter. Her daughter, Leticia, is her primary caregiver and seems very well-informed regarding the patient's history. The daughter reports that her mother has been failing at home. She does have 24/7 care currently. However, she expresses frustration regarding not having the appropriate equipment at home. I did review the notes from patient's recent visit with Dr. Rosenthal. Daughter states that while Dr. Tovar he had plan for the patient to have a Be catheter placed in the commode at bedside, these things have not been completed. She states that her mother has fallen frequently. Mother fell forward while trying to self catheterize last night and hurt her left shoulder and her left hip. She denies any loss of consciousness. Dr. Rosenthal had been concerned the patient may have had a posterior stroke which is contributing to her frequent falls. Past medical history significant for urinary obstruction for which the catheters was replaced, confusion, depression, vascular dementia, aortic murmur, bacteria, Hurd's esophagus, chronic constipation, hypertension, COPD, hypothyroidism, GI bleed, hyperlipidemia, DVT. Daughter reports that patient was diagnosed by Dr. Montes with a urinary tract infection for which she is been on Bactrim. Related Data Home Medications Medication Instructions Recorded Confirmed levothyroxine 200 mcg PO DAILY tab-cap 08/11/14 12/09/19 isosorbide mononitrate 30 mg PO DAILY 10/12/15 12/09/19 omeprazole 40 mg PO DAILY@0730 10/12/15 12/09/19 bupropion HCl [Wellbutrin SR] 100 mg PO DAILY 12/15/17 12/09/19 fluoxetine [Prozac] 40 mg PO DAILY tab-cap 12/15/17 12/09/19 rosuvastatin [Crestor] 10 mg PO QPM 01/26/18 12/09/19 aspirin 81 mg PO HS 04/03/18 12/09/19 meclizine 12.5 mg tablet 12.5 mg PO HS #90 tab-cap 10/01/18 12/09/19 cholecalciferol (vitamin D3) 25 1,000 unit PO DAILY 02/05/19 12/09/19 mcg (1,000 unit) capsule sulfamethoxazole 200 20 ml PO BID #473 ml 12/03/19 12/09/19 mg-trimethoprim 40 mg/5 mL oral suspension Previous Rx's Medication Instructions Recorded meclizine 12.5 mg tablet 12.5 mg PO HS #90 tab-cap 10/01/18 sulfamethoxazole 200 20 ml PO BID #473 ml 12/03/19 mg-trimethoprim 40 mg/5 mL oral suspension Allergies Allergy/AdvReac Type Severity Reaction Status Date / Time influenza virus vaccine, Allergy Severe SOB Unverified 12/09/19 08:16 specific [Influenza Virus Vacc,Specific] fentanyl [From Duragesic] Allergy Intermediate Hives Unverified 12/09/19 08:16 hydrocodone Allergy Intermediate Itching Unverified 12/09/19 08:16 codeine [Codeine] AdvReac Severe Psychosis Unverified 12/09/19 08:16 General YADI: 4 Review of Systems <KANDI Villanueva - Last Filed: 12/09/19 16:00> Unobtainable due to mental status PFSH <KANDI Villanueva - Last Filed: 12/09/19 16:00> Medical History Barretts esophagus (Chronic 10/14/15) Chronic constipation (Chronic 12/15/17) Chronic obstructive lung disease (Chronic) Confusion (Acute) Depression (Chronic) Diastolic murmur of aorta (Chronic) DNI (do not intubate) (Acute) DNR (do not resuscitate) (Acute) Frequent falls (Chronic) Grief (Resolved) Hard of hearing (Acute) Palliative care patient (Chronic) POLST (Physician Orders for Life-Sustaining Treatment) (Acute) signed 2015; reviewed 2019 Sensorineural hearing loss, bilateral (Chronic 02/23/18) FIT WITH HEARING AIDS 02/23/2018 DR ALONZO Unstable gait (Chronic) Urinary obstruction (Chronic) sees Dr Montes, urology Urinary retention (Chronic) Vascular dementia (Chronic) Walker as ambulation aid (Acute) Surgical History Abdominal hysterectomy Wilks (Incontinence sling) Cerebral aneurysm clipping Colonoscopy - MAC EGD - MAC Open Carpal Tunnel release (11/25/15) RIGHT WRIST/DR. TAVERAS Repair of inguinal hernia bilateral Replacement of total knee joint bilateral venacaval filter Social History Smoking/Tobacco Use Status: Former Tobacco Use Tobacco: How many years used: 50 Second Hand Exposure: No Alcohol Intake: former Drug use: Never Substance use type: does not use Caregiver/Support person: Yes Household members: family Housing: house Number of Children: 2 number of grandchildren: 5 Communication Needs: Hard of Hearing and Corrective Lenses Education Level: high school Do you need help understanding health information?: Always current occupation: retired Pets and animals: Yes What is your relationship status?: How often do you talk on the phone with friends or family?: three or more times per week How often do you get together with friends or relatives?: three or more times per week Panel score (0-1 are the most socially isolated patients): 1 What type of physical activity do you participate in: assisted ambulation and irregular exercise Duration: < 15 minutes/day Special paramjit needs: No Agree to transfusion: Yes Seatbelt use: always Working smoke detector in home: Yes Do you feel safe at home: Yes Do you feel safe in your relationship?: Yes Additional Social history: Lives with daughter Hina, her , son, [id number] and 3 grandchildren. Happier now than she has been. Likes lots of activity. Usually, pre Covid 19, goes to [place] regularly. Not walking much. Falling again. Poor sense of balance. Legs give out. Weak. Won't do PT. Exam <KANDI Villanueva - Last Filed: 12/09/19 16:00> Const General: cooperative, comfortable, no acute distress, well developed, well groomed and ill appearing chronically Nutritional Appearance: average body habitus and well nourished Orientation: alert, awake, oriented x3 and confused [facility] Head: normal to inspection, no palpable skull fracture, normocephalic and atraumatic Ears: hearing grossly normal bilaterally, external ears normal and TM's normal bilaterally General nose exam: external nose normal Mouth: oral mucosae normal, lip normal, tongue normal and mucous membranes dry (patient appears dry) Throat: posterior oropharynx normal Eyes General: appearance normal, both eyes and all related structures Visual Celis: normal visual celis by confrontation Alignment and Position: alignment normal Periorbital: periorbital findings normal Eyelids: eyelids normal Conjunctivae: conjunctivae normal Pupils: PERRL EOM: EOM intact bilaterally Neck Neck: normal visual inspection, full ROM, no lymphadenopathy, no meningeal signs, trachea midline and supple Chest Chest: normal inspection of the chest, normal palpation of entire chest wall, no crepitus and no localized rib tenderness Resp Effort & Inspection: normal respiratory effort, able to speak in complete sentences and no respiratory distress Auscultation: not clear to auscultation bilaterally, crackles on the right in the lower lung celis, no rales, no rhonchi and no wheezes Cardio Rate: regular rate Rhythm: regular rhythm Heart Sounds: S1 normal, S2 normal and murmur systolic GI Inspection: normal to inspection, no abdominal wall ecchymosis, no edema and non-distended Palpation: soft, no hepatosplenomegaly, not firm, no guarding, mass (just left of lower midline incision), no pulsatile masses, not rigid and tender (mild diffuse tenderness that is not reproducible) Percussion: normal to percussion Auscultation: normal bowel sounds Back/Spine/Pelvis Back: no CVA tenderness Cervical Spine: normal cervical lordosis and cervical ROM normal Thoracic/Lumbar Spine: thoracic and lumbar spine normal to inspection (ecchymosis noted over left scapula, no pain over this area), thoraco-lumbar ROM normal, No thoraco-lumbar ROM limited, No thoraco-lumbar spasm and No thoracic spinal tenderness Pelvis: no pain with anterior-posterior compression and no pain with lateral compression Skin General skin exam: ecchymosis (left scapula) Neuro General: patient alert, patient awake, patient oriented x3, tone normal and moves all extremities Cranial Nerves: CN's II-XI intact bilaterally Cognition: normal cognition Speech: speech normal Gait: gait abnormal (needs assistance at baseline, poor balance) Motor: muscle tone normal throughout and strength 5/5 throughout Sensory Exam: no sensory deficits noted (no saddle paresthesias) Extrem General: normal to inspection, capillary refill normal, no pedal edema and no calf tenderness Right upper extremity: normal to inspection, full ROM, normal capillary refill, no joint enlargement and shoulder/upper arm (pain with palpation anterior left should, surgical scar noted) Details: tenderness, axillary nerve sensory function normal and normal ROM; no swelling, no lacerations, no ecchymosis, no crepitus and no deformity Left lower extremity: normal to inspection, normal capillary refill, no joint enlargement and hip/thigh (pain with palpation laterally, 2+ pulses, no deformity, rotation or shorten) Psych Appearance: grossly normal and well kempt Mental Status: mental status grossly normal Speech and Movement: speech and movement normal
[2019-12-09 08:43] LABS: Lactate 2.3 mmol/L (0.6-1.4)
[2019-12-09] MEDS: Lactated Ringers 1,000 ML 500 ML IV (08:45)
[2019-12-09 08:49] LABS: Abs Immature Grans 0.03 k/cumm (0.0-0.09); Absolute Basophil Count 0.01 k/cumm (0.0-0.2); Absolute Eosinophil Count 0.18 k/cumm (0.0-0.7); Absolute Lymphocyte Count 0.97 k/cumm (1.2-3.4); Absolute Monocyte Count 0.79 k/cumm (0.11-0.7); Absolute Neutrophil Count 6.64 k/cumm (1.2-6.7); Basophils % 0.1; Eosinophils % 2.1; HCT 35.6 % (36.0-46.0); HGB 11.4 g/dL (12.0-15.5); Immature Grans % 0.3 %; Lymphocytes % 11.3; Mean Corpuscular Hemoglobin 29.9 pg (27.0-33.0); Mean Corpuscular Volume 93.4 fL (80-95); Mean Platelet Volume 9.3 fL (8.0-11.0); Monocytes % 9.2; Platelet Count 241 x1000/uL (130-400); RBC 3.81 m/cumm (4.00-5.20); RBC Distribution Width 14.1 % (11.7-14.6); White Blood Cell Count 8.62 k/cumm (4.4-10.8)
[2019-12-09 08:57] LABS: Bilirubin Negative (Negative); Blood Moderate (Negative); Clarity Sl Cloudy (Clear); Glucose Negative (Negative); Ketones Negative (Negative); Leukocyte Esterase Small (Negative); Nitrite Negative (Negative); Specific Gravity >= 1.030 (1.005-1.025)
[2019-12-09 09:03] LABS: ALT 16 U/L (14-59); AST 19 U/L (15-37); Albumin 3.7 g/dL (3.4-5.0); Alkaline Phosphatase 89 U/L (46-116); Anion Gap 11.1 mmol/L (3-11); BUN 20 mg/dL (7-18); Bilirubin, Total 0.4 mg/dL (0.2-1.0); CO2 23.9 mmol/L (21.0-32.0); CREATININE 1.64 mg/dL (0.55-1.02); Calcium 8.3 mg/dL (8.5-10.1); Chloride 99 mmol/L (98-107); Estimated GFR 30.07 (mL/min/1.73m2); Glucose 122 mg/dL (74-106); Potassium 3.6 mmol/L (3.5-5.1); Sodium 134 mmol/L (136-145)
[2019-12-09 09:08] LABS: Troponin I < 0.05 ng/Ml (<0.06)
[2019-12-09 09:09] LABS: Bacteria Few HPF (Negative); Crystals Negative HPF (Negative); Epithelial Cells Few HPF (Negative); Mucus Negative (Negative); RBC >50 HPF (0-2); WBC >50 HPF (0-5)
[2019-12-09 09:10] LABS: C & S Indicated? Yes
[2019-12-09] MEDS: cefTRIAXone 1 GM/50 ML BAG IVPB (09:27)
--- NOTE | 2019-12-09 09:50 | DI.RAD_ITS ---
EXAM: XR SHOULDER LT COMPLETE 2+V CLINICAL HISTORY: fall TECHNIQUE: 2D digital imaging was performed. COMPARISON: CR LEFT SHOULDER COMPLETE from 10/31/2017 FINDINGS: There has been a previous distal clavicular resection. There is severe degenerative changes of the glenohumeral joint. The bones appear osteoporotic. No fracture or dislocation is seen. The humeral head is high riding, consistent with a chronic rotator cuff tear. There is spurring at the undersur face of the acromion and subchondral cysts in the humeral head. The findings appear stable. IMPRESSION: No acute abnormality.
--- NOTE | 2019-12-09 09:50 | DI.RAD_ITS ---
EXAM: XR HIP LT COMPLETE AP PELVIS INDICATION: fal. COMPARISON: CR PELVIS AP from 02/20/2015 TECHNIQUE: 2D digital imaging was performed. FINDINGS: No fracture or dislocation is seen. There are mild degenerative changes of both hips and both SI mani ints. There is sclerosis at the pubic symphysis. Surgical clips overlie the left pubis. IMPRESSION: No acute abnormality. DATA REPOSITORY: RADIATION DOSE DELIVERED:
--- NOTE | 2019-12-09 10:00 | DI.RAD_ITS ---
EXAM: XR CHEST 2V PA LATERAL INDICATION: SOB, hypoxic, crackles RLL. COMPARISON: CR CHEST 2 VIEWS PA,LAT from 01/09/2018 TECHNIQUE: 2D digital imaging was performed. FINDINGS: The heart is grossly enlarged, unchanged. The aorta is calcified but normal in diameter. The lung bases are not well penetrated. There are tiny bilateral pleural effusions. There is some vascular p rominence as well as interstitial edema consistent with CHF. IMPRESSION: Cardiomegaly and CHF. DATA REPOSITORY: RADIATION DOSE DELIVERED:
--- NOTE | 2019-12-09 10:32 | DI.VRAD_ITS ---
PROCEDURE INFORMATION: Exam: XR Chest, 2 Views Exam date and time: 12/09/2019 10:00 AM Age: 79 years old Clinical indication: Other: Hypoxia, crackles rll TECHNIQUE: Imaging protocol: XR of the chest Views: 2 views. COMPARISON: CR CHEST 2 VIEWS PA,LAT 01/09/2018 2:12 PM FINDINGS: Lungs: The pulmonary vasculature is congested, and there is mild bilateral interstitial prominence, suggesting edema. Very small right and small left pleural effusions are present, with bibasilar atelectasis and possibly infiltrate. Pleural space: Unremarkable. No pleural effusion. No pneumothorax. Heart/Mediastinum: There is again cardiomegaly. Vasculature: An IVC filter is noted. Bones/joints: Degenerative changes again involve the spine. IMPRESSION: Cardiomegaly and interstitial edema with very small right and small left pleural effusions. Dictated and Authenticated by: Joon Oconnell MD. Ordering:HADLEY Saleh MD
--- NOTE | 2019-12-09 10:35 | DI.VRAD_ITS ---
PROCEDURE INFORMATION: Exam: XR Left Shoulder Exam date and time: 12/09/2019 9:48 AM Age: 79 years old Clinical indication: Shoulder; Left; Patient HX: S/P fall, pain TECHNIQUE: Imaging protocol: XR Left shoulder. Views: 2 or more views. COMPARISON: No relevant prior studies available. FINDINGS: Bones/joints: There is widening of the acromioclavicular interval up to 2.2 cm. It is unclear whether any portion of the acromioclavicular joint has been resected. The humeral head is high riding in relation to the glenoid. The joint spaces are otherwise normally aligned. No acute fracture is identified. The bones appear osteopenic. There are mild productive changes along the undersurface of the acromion and laterally along the greater tuberosity. Very mild osteophyte formation is present about the glenohumeral joint. Degenerative changes involve the spine. Soft tissues: The soft tissues appear grossly unremarkable. IMPRESSION: 1. No acute fracture identified. 2. Widening of the acromioclavicular interval up to 2.2 cm, could relate to injury, but it is unclear whether any portion of the acromioclavicular joint has been resected. Correlate with any known surgery. 3. Degenerative changes as described. 4. High-riding humeral head in relation to the glenoid, suggesting rotator cuff abnormality. 5. Apparent osteopenia. Dictated and Authenticated by: Joon Oconnell MD. Ordering:HADLEY Saleh MD
--- NOTE | 2019-12-09 10:40 | DI.VRAD_ITS ---
PROCEDURE INFORMATION: Exam: XR Left Hip with Pelvis when Performed Exam date and time: 12/09/2019 9:47 AM Age: 79 years old Clinical indication: Hip pain; Left hip; Patient HX: S/P fall TECHNIQUE: Imaging protocol: XR Left hip with pelvis when performed. Views: 2 or 3 views. COMPARISON: No relevant prior studies available. FINDINGS: Bones/joints: No acute fracture is identified. The left hip joint is normally aligned. Right hip joint alignment cannot be confirmed without a lateral view. The femoral head articular contours are maintained. The bones appear osteopenic. There is mild narrowing of and osteophyte formation about both hip joints. Mild productive changes are present along the greater trochanters. There is also very mild osteophyte formation about the sacroiliac joints, and lower lumbar spondylosis is noted. Soft tissues: Surgical clips overlie the lower pelvis. Phleboliths overlie the pelvis. Vasculature: Atherosclerotic vascular calcifications are noted. IMPRESSION: 1. No acute fracture or left hip joint dislocation identified. MRI would be more sensitive to pelvic and hip fracture as clinically appropriate. 2. Apparent osteopenia. 3. Degenerative changes as described. Dictated and Authenticated by: Joon Oconnell MD. Ordering:HADLEY Saleh MD
[2019-12-09 11:49] LABS: Lactate 0.8 mmol/L (0.6-1.4)
[2019-12-09 12:01] LABS: Anion Gap 7.7 mmol/L (3-11); BUN 19 mg/dL (7-18); CO2 25.3 mmol/L (21.0-32.0); CREATININE 1.45 mg/dL (0.55-1.02); Calcium 7.9 mg/dL (8.5-10.1); Chloride 100 mmol/L (98-107); Estimated GFR 34.66 (mL/min/1.73m2); Glucose 109 mg/dL (74-106); Potassium 3.7 mmol/L (3.5-5.1); Sodium 133 mmol/L (136-145)
--- NOTE | 2019-12-09 15:11 | PDOC.ERCMPRO ---
- If Service Date Differs Date of service: 12/09/19 Time of Service: 15:11 Care Management Progress Note CM was consulted to assist with setting up services for Pratik while she was in the ED. CM contacted HH to discuss the pt, as it was recommended that she receive HH services by Palliative care last week. Due to the holiday weekend, services had not yet been set up. CM supplied the ED provider with a HH referral including face to face, which was completed and faxed. CM followed up with HH, who reported that the referral is complete and services should start tomorrow. Pratik's family was also concerned about receiving a bedside commode. CM advised that the DME companies are not available/open today due to the holiday, but that they may be able to purchase one out of pocket at the local pharmacy. CM informed Dr. Sandoval of the family's concerns. Pt and family's concerns were addressed. Palliative to follow up outpatient. No further concerns at this time.
== END 2019-12-09 12:30 | disposition home or self-care (01) ==
PROVIDERS: Emergency Provider Physician Assistant; PCP Nurse Practitioner
DX: R09.02 Hypoxemia (principal); J18.9 Pneumonia, unspecified organism; N39.0 Urinary tract infection, site not specified; E86.0 Dehydration; N13.9 Obstructive and reflux uropathy, unspecified; R33.9 Retention of urine, unspecified; N18.9 Chronic kidney disease, unspecified; S40.012A Contusion of left shoulder, initial encounter; M25.552 Pain in left hip; W19.XXXA Unspecified fall, initial encounter; R94.31 Abnormal electrocardiogram [ECG] [EKG]; I12.9 Hypertensive chronic kidney disease with stage 1 through stage 4 chronic kidney disease, or unspecified chronic kidney disease; R13.10 Dysphagia, unspecified; J44.9 Chronic obstructive pulmonary disease, unspecified; F01.50 Vascular dementia, unspecified severity, without behavioral disturbance, psychotic disturbance, mood disturbance, and anxiety; Z51.5 Encounter for palliative care; Z87.891 Personal history of nicotine dependence
CPT/HCPCS: 36415; 51702; 80048; 80053; 87040; 93005; 96361; 96365; 99285; 71046; 73030; 73502; 81003; 81015; 83605; 84484; 85025; 87086; 93010; J0696

== ENCOUNTER → 2020-01-09 08:51 | Outpatient (BNVA) | payer MEDICARE, MEDICAID, SELFPAY | PROVIDERS: PCP Nurse Practitioner; Referring Provider Nurse Practitioner; Visit Provider Nurse Practitioner Gerontology | DX: N13.8 Other obstructive and reflux uropathy (principal); R33.9 Retention of urine, unspecified; Z46.6 Encounter for fitting and adjustment of urinary device | CPT/HCPCS: 51702; 99213 ==

== ENCOUNTER 2020-01-24 08:17 | Outpatient (CLI) | payer MEDICARE, MEDICAID, SELFPAY ==
[2020-01-26 12:25] LABS: COVID-19 RT-PCR Result NEGATIVE (Negative)
== END 2020-01-24 08:37 ==
PROVIDERS: PCP Nurse Practitioner; Visit Provider Urology
DX: Z01.818 Encounter for other preprocedural examination (principal); Z03.818 Encounter for observation for suspected exposure to other biological agents ruled out
CPT/HCPCS: U0003

== ENCOUNTER 2020-01-27 08:07 | Day surgery (SDC) | payer MEDICARE, MEDICAID, SELFPAY ==
[2020-01-27 08:15] VITALS: BP 155/92; PULSE 83; RESP 16; TEMP 36.2; O2SAT 91
[2020-01-27] MEDS: Lactated Ringers 1,000 ML 80 ML IV (09:35)
--- NOTE | 2020-01-27 10:08 | HPE_ITS ---
Date of service: 01/27/20 Time of Service: 10:08 Assessment and Plan Assessment and plan (1) Urinary obstruction: Status: Chronic Assessment and plan: We will remove her urethral catheter and replace it with a suprapubic tube. History of Present Illness History of Present Illness Chief Complaint: Urinary retention Narrative: Pratik is an 79-year-old female who has a history of recurrent urinary tract infections and incomplete bladder emptying. She was started on an intermittent catheterization program. However due to her dementia she forgets the need to catheterize herself. Recently home health providers placed an indwelling urethral catheter. She presents now for placement of a suprapubic tube. Review of Systems Constitutional Constitutional: Denies chills, Reports fatigue and Denies fever(s) Cardiovascular Cardiovascular: Denies chest pain Respiratory Respiratory: Denies cough Gastrointestinal Gastrointestinal: Denies nausea and Denies vomiting Neurologic Neurologic: Reports confusion Psychiatric Psychiatric: Reports confusion Endocrine Endocrine: Reports fatigue COUNTS INCLUDE 234 BEDS AT THE [facility] Social History Smoking/Tobacco Use Status: Former Tobacco Use Quit Date: 07/17/69 Tobacco: How many years used: 50 Second Hand Exposure: No Alcohol Intake: former Drug use: Never Substance use type: does not use Caregiver/Support person: Yes Household members: family Housing: house Number of Children: 2 number of grandchildren: 5 Communication Needs: Hard of Hearing and Corrective Lenses Education Level: high school Do you need help understanding health information?: Always current occupation: retired Pets and animals: Yes What is your relationship status?: How often do you talk on the phone with friends or family?: three or more times per week How often do you get together with friends or relatives?: three or more times per week Panel score (0-1 are the most socially isolated patients): 1 What type of physical activity do you participate in: assisted ambulation and irregular exercise Duration: < 15 minutes/day Special paramjit needs: No Agree to transfusion: Yes Seatbelt use: always Working smoke detector in home: Yes Do you feel safe at home: Yes Additional Social history: Lives with daughter Hina, her , son, [id number] and 3 grandchildren. Happier now than she has been. Likes lots of activity. Usually, pre Covid 19, goes to [place] regularly. Not walking much. Falling again. Poor sense of balance. Legs give out. Weak. Won't do PT. Meds Home Medications and Allergies Home Medications Medication Instructions Recorded Confirmed Type levothyroxine 200 mcg PO DAILY tab-cap 08/11/14 01/27/20 History isosorbide mononitrate 30 mg PO DAILY 10/12/15 01/27/20 History omeprazole 40 mg PO DAILY@0730 10/12/15 01/27/20 History bupropion HCl [Wellbutrin SR] 100 mg PO DAILY 12/15/17 01/27/20 History fluoxetine [Prozac] 40 mg PO DAILY tab-cap 12/15/17 01/27/20 History rosuvastatin [Crestor] 10 mg PO QPM 01/26/18 01/27/20 History aspirin 81 mg PO HS 04/03/18 01/27/20 History meclizine 12.5 mg tablet 12.5 mg PO HS #90 tab-cap 10/01/18 01/27/20 Rx cholecalciferol (vitamin D3) 25 1,000 unit PO DAILY 02/05/19 01/27/20 History mcg (1,000 unit) capsule sulfamethoxazole 200 20 ml PO BID #473 ml 12/03/19 01/09/20 Rx mg-trimethoprim 40 mg/5 mL oral suspension trazodone 100 mg tablet 200 mg PO QHS #60 tab 01/21/20 01/27/20 Rx Allergies Allergy/AdvReac Type Severity Reaction Status Date / Time influenza virus vaccine, Allergy Severe SOB Unverified 01/27/20 08:23 specific [Influenza Virus Vacc,Specific] fentanyl [From Duragesic] Allergy Intermediate Hives Unverified 01/27/20 08:23 hydrocodone Allergy Intermediate Itching Unverified 01/27/20 08:23 codeine [Codeine] AdvReac Severe Psychosis Unverified 01/27/20 08:23 Exam Const General: cooperative and no acute distress Neck Neck: supple Resp Effort & Inspection: normal respiratory effort Auscultation: clear to auscultation bilaterally Cardio Rate: regular rate Rhythm: regular rhythm GI Palpation: soft and no masses Neuro General: patient alert and patient awake Results Last Vital Signs Temp 36.2 C L 01/27/20 08:15 Pulse 83 01/27/20 08:15 Resp 16 01/27/20 08:15 BP 155/92 H 01/27/20 08:15 Pulse Ox 91 L 01/27/20 08:15 COVID-19 Screening Have you,or household,traveled outside [place] in last 14 days?: Yes Had IN PERSON contact w/suspected or confirmed C-19 person: No
[2020-01-27] MEDS: ceFAZolin 1 GM/50 ML BAG IVPB (10:58)
[2020-01-27] MEDS: Lidocaine 2% Jelly 6 ML SYR (11:15)
[2020-01-27] MEDS: Bupivacaine 0.5% Pres-Free 30 ML VIAL (11:15)
--- NOTE | 2020-01-27 11:29 | W.PM.DSUDISC ---
Discharge Plan Disposition Patient Disposition: HOME Condition: Stable Discharge Details Reason For Visit: Suprapubic tube Attending Provider: Richar Montes Primary Care Provider: Sabine Ludwig Home Meds and New Rx's Prescriptions: No Action cholecalciferol (vitamin D3) 1,000 unit capsule 1,000 unit PO DAILY RF: 0 sulfamethoxazole-trimethoprim [Sulfatrim] 200-40 mg/5 mL suspension 20 ml PO BID Qty: 473 RF: 0 levothyroxine 200 MCG tablet 200 mcg PO DAILY RF: 0 bupropion HCl [Wellbutrin SR] 100 MG tablet extended release 12 hr 100 mg PO DAILY RF: 0 fluoxetine [Prozac] 20 MG capsule 40 mg PO DAILY RF: 0 meclizine 12.5 mg tablet 12.5 mg PO HS Qty: 90 RF: 1 trazodone 100 mg tablet 200 mg PO QHS Qty: 60 RF: 1 isosorbide mononitrate 30 MG tablet extended release 24 hr 30 mg PO DAILY RF: 0 omeprazole 20 MG capsule,delayed release(DR/EC) 40 mg PO DAILY@0730 RF: 0 rosuvastatin [Crestor] 10 MG tablet 10 mg PO QPM RF: 0 aspirin 81 mg Tablet,Chewable 81 mg PO HS RF: 0 Discharge Instructions Additional Instructions: Followup 4 to 6 weeks for SP tube change Dry dressing to suprapubic tube daily and prn until drainage around catheter stops SP tube to leg bag Activity:: Activity as Tolerated Shower/Bathe:: 24 hours Diet:: As Tolerated Discharge Orders Discharge Orders: Discharge Order (Routine); Ordered 01/27/20 Ordered By: Richar Montes DS: Diagnosis Discharge Diagnosis (1) Urinary obstruction: Status: Chronic
--- NOTE | 2020-01-27 11:33 | W.PM.OP ---
Date of service: 01/27/20 Time of Service: 11:33 Operative Note Operative Note DATE OF PROCEDURE: 01/27/20 PRE-OP DIAGNOSIS: Urinary retention POST-OP DIAGNOSIS: same PROCEDURE: Cystoscopy with insertion of suprapubic tube SURGEON: Richar Montes ANESTHESIA: MAC and local ESTIMATED BLOOD LOSS: 25 PATHOLOGY: none sent COMPLICATIONS: None Patient was transported to: same day Patient's condition: stable Implants: 16 Martiniquais catheter with 10 cc of water in the balloon Indications: This is an 79-year-old woman who has a history of incomplete bladder emptying and urinary retention. She was initially managed with intermittent catheterization. As her dementia has progressed, she has been unable to perform CIC and a urethral catheter was placed. She presents now to have the urethral catheter changed to a suprapubic tube. Procedure Description: The patient was brought to the operating room on 01/27/2020. She was given preoperative IV antibiotics. After successful induction of monitored anesthesia care, she was placed in the dorsal lithotomy position. Her indwelling urethral catheter was removed. Her genitalia and lower abdomen were prepped and draped. 2% Xylocaine jelly was instilled into the urethra to act as a local anesthetic. The curved Lowsley tractor was passed through the urethra into the bladder. The tip of the Lowsley tractor was held up against the abdominal wall. The skin overlying the tip of the retractor was infiltrated using quarter percent Marcaine. An incision was then made down onto the top of the Lowsley retractor and the tip was brought through the incision. The jaws of the Lowsley retractor were opened and a 16 Martiniquais catheter was grasped and pulled through the suprapubic tract, through the bladder and out the urethra where it was released. Cystoscopy was then performed using a 17 Martiniquais cystoscope and a 70 degree lens. Once the catheter was seen positioned correctly within the bladder, the catheter balloon was inflated with 10 cc of sterile water. The catheter was then hooked to gravity drainage. A dry sterile dressing was applied around the suprapubic tube. She tolerated this procedure well.
[2020-01-27 12:25] VITALS: BP 148/108; PULSE 69; RESP 18; TEMP 35.9; O2SAT 93
[2020-01-27] MEDS: Phenazopyridine 200 MG TAB PO (12:48)
== END 2020-01-27 13:20 | disposition home or self-care (01) ==
PROVIDERS: PCP Nurse Practitioner; Visit Provider Urology
PROC: (CPT 51102; principal; 2020-01-27 10:15)
DX: R33.9 Retention of urine, unspecified (principal); F03.90 Unspecified dementia, unspecified severity, without behavioral disturbance, psychotic disturbance, mood disturbance, and anxiety
CPT/HCPCS: 51102; NC; J0690

== ENCOUNTER 2020-02-14 13:48 | Outpatient (REF) | payer MEDICARE, MEDICAID, SELFPAY ==
[2020-02-14 14:23] LABS: Bilirubin Small (Negative); Blood Moderate (Negative); Clarity Cloudy (Clear); Glucose Negative (Negative); Ketones Negative (Negative); Leukocyte Esterase Small (Negative); Nitrite Negative (Negative); Specific Gravity 1.025 (1.005-1.025); Urobilinogen 0.2 EU/dL (Up TO 0.2); pH 6.5 (5-8)
[2020-02-14 14:54] LABS: WBC >50 HPF (0-5)
[2020-02-14 14:55] LABS: Bacteria Many HPF (Negative); C & S Indicated? Yes
== END 2020-02-14 14:08 ==
LOC: LBN 13:48
PROVIDERS: PCP Nurse Practitioner; Visit Provider Nurse Practitioner
DX: N39.0 Urinary tract infection, site not specified (principal); Z93.59 Other cystostomy status
CPT/HCPCS: 87077; 81003; 81015; 87086; 87186

== ENCOUNTER 2020-02-17 13:40 | Outpatient (REF) | payer MEDICARE, MEDICAID, SELFPAY ==
[2020-02-17 15:01] LABS: TSH 0.01 uIU/mL (0.36-3.74)
== END 2020-02-17 14:00 ==
LOC: LBN 13:40
PROVIDERS: PCP Nurse Practitioner; Visit Provider Family Medicine
DX: Z79.890 Hormone replacement therapy (principal); E03.9 Hypothyroidism, unspecified
CPT/HCPCS: 84443

== ENCOUNTER → 2020-02-25 14:53 | Outpatient (BNVA) | payer MEDICARE, MEDICAID, SELFPAY | PROVIDERS: PCP Nurse Practitioner; Referring Provider Nurse Practitioner; Visit Provider Urology | DX: R33.8 Other retention of urine (principal); Z46.6 Encounter for fitting and adjustment of urinary device | CPT/HCPCS: 51705; 99212 ==

== ENCOUNTER 2020-02-28 12:53 | Outpatient (REF) | payer MEDICARE, MEDICAID, SELFPAY ==
[2020-02-28 13:10] LABS: Bilirubin Negative (Negative); Blood Trace-lysed (Negative); Clarity Cloudy (Clear); Glucose Negative (Negative); Ketones Negative (Negative); Leukocyte Esterase Large (Negative); Nitrite Negative (Negative); Specific Gravity 1.015 (1.005-1.025); Urobilinogen 0.2 EU/dL (Up TO 0.2); pH 6.5 (5-8)
[2020-02-28 13:35] LABS: Bacteria Many HPF (Negative); Casts Negative LPF (Negative); Epithelial Cells Negative HPF (Negative); Mucus Moderate (Negative); Other Cells Negative (Negative); WBC 20-50 HPF (0-5)
[2020-02-28 13:36] LABS: C & S Indicated? Yes; Crystals Moderate Amorphous HPF (Negative)
== END 2020-02-28 13:13 ==
LOC: LBN 12:53
PROVIDERS: PCP Nurse Practitioner; Visit Provider Urology
DX: N39.0 Urinary tract infection, site not specified (principal)
CPT/HCPCS: 87077; 81003; 81015; 87086; 87186

== ENCOUNTER 2020-04-13 22:48 | Inpatient (IN) | payer MEDICARE, MEDICAID, SELFPAY ==
[2020-04-13] VITALS (11 sets, daily range): BP systolic 126–143; BP diastolic 67–125; PULSE 76–105; RESP 14–20; O2SAT 94–98
--- NOTE | 2020-04-13 23:07 | W.ED.GENAD ---
Discharge Plan Disposition Patient Disposition: [facility] INPATIENT Condition: Serious Discharge Details Chief Complaint: GI Bleed Clinical Impression: Acute GI bleeding, Diverticulitis Primary Care Provider: Sabine Ludwig ED Provider: Charan Sorensen Home Meds and New Rx's Prescriptions: No Action cholecalciferol (vitamin D3) 1,000 unit capsule 1,000 unit PO DAILY RF: 0 bupropion HCl [Wellbutrin SR] 100 MG tablet extended release 12 hr 100 mg PO DAILY RF: 0 fluoxetine [Prozac] 20 MG capsule 40 mg PO DAILY RF: 0 levothyroxine 100 mcg capsule 100 mcg PO DAILY Qty: 30 RF: 2 temazepam 15 mg capsule 15 mg PO QHS PRN (Reason: sleep) Qty: 30 RF: 3 cefdinir 300 mg capsule 300 mg PO BID Qty: 14 RF: 0 isosorbide mononitrate 30 MG tablet extended release 24 hr 30 mg PO DAILY RF: 0 omeprazole 20 MG capsule,delayed release(DR/EC) 40 mg PO HS RF: 0 rosuvastatin [Crestor] 10 MG tablet 10 mg PO QPM RF: 0 meclizine 12.5 mg tablet 12.5 mg PO HS PRNRF: 0 Medical Decision Making 80-year-old female with past medical history of advanced Lewy body dementia, currently DNR/DNI and palliative care, additionally with a past medical history of diverticulitis, chronic suprapubic catheter, presents today for evaluation of GI bleed. Patient's daughter who is at bedside states that for the last day she has had multiple episodes of bloody diarrhea, the most recent being 3 bloody/bright red episodes this evening. Patient complains of pain in her left side of her abdomen. No vomiting. The patient has been having some burping though. She is not on any blood thinners. No other complaints at this time. Physical exam demonstrates mild tenderness in the left side of the abdomen. No guarding. Diapers on, no blood at this time however the daughter does state that the patient had filled over half of her commode with notably bright red blood. With the patient's palliative care status I did asked daughter the degree of aggressiveness that she would like us to pursue. She is medically that she would not like her mother to bleed to . We will get a CT scan, gently rehydrate, evaluate for need for PRBCs, start Protonix and famotidine drip, monitor closely and reassess. Patient will likely need admission tonight. 1:03 AM Patient has had an additional episode of notable bright red blood with a bowel movement here in the ED. Pressures and heart rate remained stable. Laboratory work-up shows a hemoglobin of 9.9, which is slightly lower than her normal, however I feel that this is likely lagging behind her true blood status. Lactate slightly elevated at 2.4, renal function at baseline, and is chronically poor. CT scan shows results of mild diverticulitis. She has not been on any antibiotics for over a month and a half. With her continued bleeding, and the mild diverticulitis, I feel that this is likely commendation of a generalized diverticular bleed in conjunction with mild diverticulitis as a causative etiology for her actual pain. With her BUN of 28 in the setting of a creatinine of 1.37 while there may certainly be a component of upper GI bleed with the bright red blood in this ratio I do feel that it is more likely a lower component in particular. Regardless we will continue the famotidine and Protonix, we will do Flagyl and ceftriaxone as the patient's daughter specifically is concerned that Cipro can cause the patient to become notably temperamental. I discussed the case with the hospitalist Dr. Cho. He agrees with assessment and plan. Patient will be admitted for further management. I have extensively reviewed the treatment plan with the patient. I have addressed all patient concerns at this time. I have also discussed the plan with the admitting physician and they agree with the current assessment and plan and have agreed to assume responsibility for the patient. All parties demonstrate verbal understanding and agreement with our assessment and plan at this time. FINDINGS: Lungs: Ground-glass opacities are seen in the left upper lobe and left lower lobe. There is mild right lower lobe atelectasis. Heart: There are coronary artery calcifications. Aortic valve calcifications are seen. Mediastinal space: There is a moderate hiatal hernia. Liver: Unremarkable. Gallbladder and bile ducts: Cholelithiasis. Pancreas: The pancreas is atrophic. Spleen: Unremarkable. Adrenals: No mass. Kidneys and ureters: No hydronephrosis. Stomach and bowel: No bowel obstruction. There is colonic diverticulosis. Mild fat stranding adjacent to the sigmoid colon which may represent diverticulitis. Appendix: No evidence of appendicitis. Intraperitoneal space: No free air. No significant fluid collection. Vasculature: 3.2 cm infrarenal aortic aneurysm. There are atherosclerotic calcifications of the aorta. An IVC filter is seen. 3 mm calcification in the right mid abdomen which may represent a ureteral calculus versus phlebolith, image 58. Lymph nodes: No pathologically enlarged lymph nodes. Urinary bladder: There is mild diffuse bladder wall thickening and adjacent fat stranding. Be catheter is seen in the bladder. Small amount of air in the bladder may be due to prior instrumentation or gas-forming infection. Reproductive: Prior hysterectomy. Bones/joints: There is generalized osteopenia. There are multilevel degenerative changes in the spine. Mild T11 compression deformity of uncertain age. Soft tissues: Unremarkable. IMPRESSION: 1. Diverticulosis. Mild fat stranding adjacent to the sigmoid colon may represent early diverticulitis. 2. Tiny proximal right ureter calculus versus phlebolith. No hydronephrosis in the right or left kidney. 3. Bladder wall thickening suggesting cystitis. 4. Left lung ground-glass opacities may be infectious or inflammatory etiology. 5. Coronary artery calcifications. 6. Cholelithiasis. 7. Hiatal hernia. 8. Mild T11 compression deformity of uncertain age. 9. Additional incidental/non-emergent findings, as above. Thank you for allowing us to participate in the care of your patient. Dictated and Authenticated by: Liam Iniguez MD 04/14/2020 12:56 AM Eastern Time ([place] & [place]) HPI General Date/Time Provider Initiated Documentation: 04/13/20 23:03. HPI Narrative: 80-year-old female with past medical history of advanced Lewy body dementia, currently DNR/DNI and palliative care, additionally with a past medical history of diverticulitis, chronic suprapubic catheter, presents today for evaluation of GI bleed. Patient's daughter who is at bedside states that for the last day she has had multiple episodes of bloody diarrhea, the most recent being 3 bloody/bright red episodes this evening. Patient complains of pain in her left side of her abdomen. No vomiting. The patient has been having some burping though. She is not on any blood thinners. No other complaints at this time. Related Data Home Medications Medication Instructions Recorded Confirmed isosorbide mononitrate 30 mg PO DAILY 10/12/15 04/13/20 omeprazole 40 mg PO HS 10/12/15 04/13/20 bupropion HCl [Wellbutrin SR] 100 mg PO DAILY 12/15/17 04/13/20 fluoxetine [Prozac] 40 mg PO DAILY tab-cap 12/15/17 04/13/20 rosuvastatin [Crestor] 10 mg PO QPM 01/26/18 04/13/20 cholecalciferol (vitamin D3) 25 1,000 unit PO DAILY 02/05/19 04/13/20 mcg (1,000 unit) capsule levothyroxine 100 mcg capsule 100 mcg PO DAILY #30 cap 02/20/20 04/13/20 temazepam 15 mg capsule 15 mg PO QHS PRN #30 cap 02/27/20 04/13/20 cefdinir 300 mg capsule 300 mg PO BID #14 cap 03/03/20 04/13/20 meclizine 12.5 mg PO HS PRN 04/13/20 04/13/20 Previous Rx's Medication Instructions Recorded levothyroxine 100 mcg capsule 100 mcg PO DAILY #30 cap 02/20/20 temazepam 15 mg capsule 15 mg PO QHS PRN #30 cap 02/27/20 cefdinir 300 mg capsule 300 mg PO BID #14 cap 03/03/20 Allergies Allergy/AdvReac Type Severity Reaction Status Date / Time influenza virus vaccine, Allergy Severe SOB Unverified 01/27/20 08:23 specific [Influenza Virus Vacc,Specific] fentanyl [From Duragesic] Allergy Intermediate Hives Unverified 01/27/20 08:23 hydrocodone Allergy Intermediate Itching Unverified 01/27/20 08:23 codeine [Codeine] AdvReac Severe Psychosis Unverified 01/27/20 08:23 quetiapine AdvReac Severe diarrhea Verified 02/06/20 20:49 ciprofloxacin AdvReac worsens Verified 02/25/20 15:10 dementia General Stated Complaint: GI Bleed YADI: 2 Review of Systems All systems reviewed & are unremarkable except as noted in HPI and below PFSH Medical History Agitation due to dementia Atelectasis Bacteriuria (12/28/17) Barretts esophagus (10/14/15) Cataract Chronic constipation (12/15/17) Chronic obstructive lung disease Confusion Deficient knowledge of incentive spirometer family to work with her to use IS hourly while awake Dementia Depression Diastolic murmur of aorta DNI (do not intubate) DNR (do not resuscitate) Be catheter in place Frequent falls having hard time using walker due to cognitive impairment GI bleed a. Probably upper GI bleed. b. Discharged on a PPI. Grief Hallucinations due to late onset dementia both visual and auditory visual pronounced Hard of hearing Insomnia Lewy body dementia with behavioral disturbance returned to her normal functioning with tx for UTI Long-term current use of thyroid hormone replacement therapy Loss of vision Lower GI bleeding Oxygen dependent uses it prn Palliative care patient POLST (Physician Orders for Life-Sustaining Treatment) signed 2015; reviewed 2019 Recurrent UTI Sedentary lifestyle Self straight caths twice a day Sensorineural hearing loss, bilateral (02/23/18) FIT WITH HEARING AIDS 02/23/2018 DR ALONZO Suprapubic catheter Unstable gait Urinary obstruction sees Dr Montes, urology Urinary retention has suprapubic catheter January 2020 Vascular dementia Walker as ambulation aid cannot do this independently does need stand-by assistance. Surgical History Abdominal hysterectomy Wilks (Incontinence sling) Cerebral aneurysm clipping Colonoscopy - MAC EGD - MAC Open Carpal Tunnel release (11/25/15) RIGHT WRIST/DR. TAVERAS Repair of inguinal hernia bilateral Replacement of total knee joint bilateral venacaval filter Pt. S-I-L unsure if she has this Family History Daughter Depression Sister , age 82 from hemorrhagic stroke Dementia Stroke Son No problems noted. Social History Smoking/Tobacco Use Status: Former Tobacco Use Quit Date: 07/17/69 Tobacco: How many years used: 50 Second Hand Exposure: No Alcohol Intake: former Drug use: Never Substance use type: does not use Caregiver/Support person: Yes Household members: family Housing: house Number of Children: 2 number of grandchildren: 5 Communication Needs: Hard of Hearing and Corrective Lenses Education Level: high school Do you need help understanding health information?: Always current occupation: retired Pets and animals: Yes What is your relationship status?: How often do you talk on the phone with friends or family?: three or more times per week How often do you get together with friends or relatives?: three or more times per week Panel score (0-1 are the most socially isolated patients): 1 What type of physical activity do you participate in: assisted ambulation and irregular exercise Duration: < 15 minutes/day Special paramjit needs: No Agree to transfusion: Yes Seatbelt use: always Working smoke detector in home: Yes Do you feel safe at home: Yes Do you feel safe in your relationship?: Yes Additional Social history: Lives with daughter Hina, her , son, [id number] and 3 grandchildren. Happier now than she has been. Likes lots of activity. Usually, pre Covid 19, goes to [place] regularly. Not walking much. Falling again. Poor sense of balance. Legs give out. Weak. Won't do PT. Exam Narrative Exam Narrative: 1.Const: Well-nourished, Well-developed, appearing stated age 2.Eyes: PERRL, no conjunctival injection, and symmetrical lids. 3.ENT: Atraumatic external nose and ears. Moist MM. Neck: Symmetric, trachea midline, No thyromegaly. 4.CVS: +S1/S2, No murmurs or gallops. Peripheral pulses 2+ and equal in all extremities. Brisk capillary refill in all extremities. 5.RESP: Unlabored respiratory effort. Clear to auscultation bilaterally. No wheezes rales or rhonchi 6.GI: Soft, nondistended, mild tenderness in the left side of the abdomen. Suprapubic Be catheter in place. Stoma is visible. 7.MSK: Normocephalic/Atraumatic, Extremities w/o deformity or ttp No cyanosis or clubbing, Normal movement of all extremities 8.Skin: Warm, Dry. No rashes or lesions. 9.Neuro: android architect II-XII grossly intact. Sensation grossly intact, no focal neurologic deficits. 10.Psych: (AAO) x3. Appropriate mood and affect Course Vital Signs Vital signs: Vital Signs Pulse 105 H 04/13/20 23:01 Respiratory Rate 20 04/13/20 23:01 Blood Pressure 143/125 H 04/13/20 23:01 Pulse Oximetry 98 04/13/20 23:01 Pulse 105 H 04/13/20 23:01 Respiratory Rate 20 04/13/20 23:01 Blood Pressure 143/125 H 04/13/20 23:01 Blood Pressure Position Supine 04/13/20 23:01 Pulse Oximetry 98 04/13/20 23:01 Oxygen Delivery Method Room Air 04/13/20 23:01 Oxygen Flow Rate 0 04/13/20 23:01
[2020-04-13 23:19] LABS: Abs Immature Grans 0.07 10^3/uL (0.0-0.06); Absolute Basophil Count 0.06 10^3/uL (0.0-0.2); Absolute Eosinophil Count 0.14 10^3/uL (0.0-0.7); Absolute Lymphocyte Count 2.18 10^3/uL (1.2-3.4); Absolute Monocyte Count 0.83 10^3/uL (0.1-0.8); Absolute Neutrophil Count 7.36 10^3/uL (1.2-6.7); Basophils % 0.6; Eosinophils % 1.3; HCT 32.2 % (36.0-46.0); HGB 9.9 g/dL (11.2-15.7); Immature Grans % 0.7; Lymphocytes % 20.5; MCH 30.2 pg (27.0-33.0); MCHC 30.7 % (32.0-36.0); MCV 98.2 fL (80-95); MPV 9.8 fL (8.0-11.0); Monocytes % 7.8; Neutrophils % 69.1; Nucleated RBC 0 %; Platelet Count 293 10^3/uL (130-400); RBC 3.28 10^6/uL (3.93-5.22); RDW 13.7 % (11.7-14.6); RDW-SD 49.7 fL; WBC 10.64 10^3/uL (4.4-10.8)
[2020-04-13 23:23] LABS: Lactate 2.4 mmol/L (0.6-1.4)
[2020-04-13] MEDS: Pantoprazole 40 MG VIAL IVP (23:26)
[2020-04-13] MEDS: FAMOTIDINE 20 MG/50 ML BAG 100 MG IVPB (23:38)
[2020-04-13] MEDS: Normal Saline 500 ML IV (23:38)
[2020-04-13 23:42] LABS: INR 1.1 (0.9-1.1); PTT Activated 19.8 sec (21.0-31.4); Prothrombin Time 10.7 sec (9.3-11.0)
[2020-04-13] MEDS: PANTOPRAZOLE 80 MG in Normal Saline 100 ML 10 MG IV (23:56)
[2020-04-14] VITALS (38 sets, daily range): BP systolic 116–156; BP diastolic 59–82; PULSE 73–89; RESP 14–22; TEMP 35.8–36.9; O2SAT 92–100
--- NOTE | 2020-04-14 | DI.CT_ITS ---
EXAM: CT ABDOMEN PELVIS WO CLINICAL HISTORY: gi bleed, left sided abdominal pain, hx of tics. TECHNIQUE: Imaging Protocol: Axial computed tomography images with coronal and sagittal reformatted images were created and reviewed. Oral: no COMPARISON: CR,XR XR CHEST 2V PA LATERAL from 12/09/2019 FINDINGS: ABDOMEN: Exam is limited due to respiratory motion. Lung Bases: There is an infiltrate in the left upper lobe . There are underlying fibrotic changes. Heart is enlarged. There are coronary artery calcificatio ns and aortic valve calcifications. Bowel: There is a large right-sided hiatal hernia containing the majority of the stomach. There is n o evidence of obstruction. There is a large diverticulum of the 2nd portion of the duodenum. Liver: Normal density. No measurable mass. Gallbladder and biliary tract: There are a few tiny stones in the dependent portion of the gallbladde r. There is no gallbladder wall thickening or biliary dilatation. Pancreas: Atrophic, no abnormal calcifications or inflammatory process. Spleen: Normal. Kidneys: Normal size, contour and axis. No radiodense stones or obstructive uropathy. No masses seen. Adrenal glands: No masses seen. Lymph nodes: Within normal limits. Abdominal Aorta: 3.2 centimeter infrarenal aortic aneurysm. IVC filter. Soft tissues: Postsurgical changes in the anterior abdominal wall. PELVIS: Bladder: Suprapubic catheter. Mild wall thickening. Bowel: Extensive diverticulosis, greatest of the descending and sigmoid colon. No definite diverticu litis. Peritoneal cavity: No ascites, collection or mesenteric inflammatory response. Reproductive organs: Status post hysterectomy. Bones: Diffuse osteopenia. Mild T11 compression fracture. Degenerative changes. IMPRESSION: Left upper lobe infiltrate. Extensive diverticulosis. No definite diverticulitis. Large hiatal her augusto. RADIATION DOSE DELIVERED: 909.31mGy.cm Total DLP DATA REPOSITORY: All CT scans at this facility are submitted to the National Radiology Data Registry (NRDR) Dose Index Registry (DIR) with the [employer] (ACR). RADIATION OPTIMIZATION: All CT scans at this facility use at least one of these dose optimization te chniques: automated exposure control; mA and/or kV adjustment per patient size (includes targeted exa ms where dose is matched to clinical indication); or iterative reconstruction.
[2020-04-14 00:03] LABS: ALT 11 U/L (14-59); AST 26 U/L (15-37); Albumin 3.2 g/dL (3.4-5.0); Alkaline Phosphatase 81 U/L (46-116); Anion Gap 13.3 mmol/L (3-11); BUN 28 mg/dL (7-18); Bilirubin, Total 0.5 mg/dL (0.2-1.0); CO2 20.7 mmol/L (21.0-32.0); CREATININE 1.37 mg/dL (0.55-1.02); Calcium 8.6 mg/dL (8.5-10.1); Chloride 101 mmol/L (98-107); Estimated GFR 36.91 (mL/min/1.73m2); Glucose 141 mg/dL (74-106); Potassium 4.3 mmol/L (3.5-5.1); Sodium 135 mmol/L (136-145); Total Protein 6.5 g/dL (6.4-8.2)
--- NOTE | 2020-04-14 00:56 | DI.VRAD_ITS ---
PROCEDURE INFORMATION: Exam: CT Abdomen And Pelvis Without Contrast Exam date and time: 04/14/2020 12:18 AM Age: 80 years old Clinical indication: Abdominal pain; Localized; Prior surgery; Surgery date: 6+ months; Surgery type: Hernia repair, hysterectomy, bladder sling; Patient HX: Left sided abdomen pain, gi bleed, HX of tics TECHNIQUE: Imaging protocol: Computed tomography of the abdomen and pelvis without contrast. Radiation optimization: All CT scans at this facility use at least one of these dose optimization techniques: automated exposure control; mA and/or kV adjustment per patient size (includes targeted exams where dose is matched to clinical indication); or iterative reconstruction. COMPARISON: CR XR HIP LT COMPLETE AP PELVIS 12/09/2019 9:46 AM FINDINGS: Lungs: Ground-glass opacities are seen in the left upper lobe and left lower lobe. There is mild right lower lobe atelectasis. Heart: There are coronary artery calcifications. Aortic valve calcifications are seen. Mediastinal space: There is a moderate hiatal hernia. Liver: Unremarkable. Gallbladder and bile ducts: Cholelithiasis. Pancreas: The pancreas is atrophic. Spleen: Unremarkable. Adrenals: No mass. Kidneys and ureters: No hydronephrosis. Stomach and bowel: No bowel obstruction. There is colonic diverticulosis. Mild fat stranding adjacent to the sigmoid colon which may represent diverticulitis. Appendix: No evidence of appendicitis. Intraperitoneal space: No free air. No significant fluid collection. Vasculature: 3.2 cm infrarenal aortic aneurysm. There are atherosclerotic calcifications of the aorta. An IVC filter is seen. 3 mm calcification in the right mid abdomen which may represent a ureteral calculus versus phlebolith, image 58. Lymph nodes: No pathologically enlarged lymph nodes. Urinary bladder: There is mild diffuse bladder wall thickening and adjacent fat stranding. Be catheter is seen in the bladder. Small amount of air in the bladder may be due to prior instrumentation or gas-forming infection. Reproductive: Prior hysterectomy. Bones/joints: There is generalized osteopenia. There are multilevel degenerative changes in the spine. Mild T11 compression deformity of uncertain age. Soft tissues: Unremarkable. IMPRESSION: 1. Diverticulosis. Mild fat stranding adjacent to the sigmoid colon may represent early diverticulitis. 2. Tiny proximal right ureter calculus versus phlebolith. No hydronephrosis in the right or left kidney. 3. Bladder wall thickening suggesting cystitis. 4. Left lung ground-glass opacities may be infectious or inflammatory etiology. 5. Coronary artery calcifications. 6. Cholelithiasis. 7. Hiatal hernia. 8. Mild T11 compression deformity of uncertain age. 9. Additional incidental/non-emergent findings, as above. Dictated and Authenticated by: Liam Iniguez MD. Ordering:BRIELLE Farrar MD
--- NOTE | 2020-04-14 01:20 | HPE_ITS ---
Date of service: 04/14/20 Time of Service: : Assessment and Plan Assessment and plan (1) Acute GI bleeding: Status: Acute Assessment and plan: Probable diverticular bleed, though classically would be more definitively painless; perhaps element of diverticulitis. Doubt C diff, simple gastroenteritis unlikely. Agree with transfusion given frequency of and ongoing nature of bleeding. Will also empirically continue antibiotics. For completeness sake will check C diff as well. Do not see need to check stool cxx at present. Patient's daughter affirms DNR status. History of Present Illness History of Present Illness Chief Complaint: rectal bleeding Narrative: 80 female with h/o diverticular bleed, and advanced Lewy body dementia -- here with two days of numerous episodes of hematochezia. There appears to perhaps be an element of pain but patient provides only very limited history. In ER w/u of note for patient being eutensive, Hct 32 (baseline approx 35) abd CT d emonstrating diverticulosis and question mild diverticulitis of sigmoid. While in ER patient had continued episodes of bleeding. Given Rocephin and Flagyl and ordered for 2 unit pRBC. Admitted for further management. Review of Systems All systems reviewed & are unremarkable except as noted in HPI and below PFSH Medical History Agitation due to dementia Atelectasis Bacteriuria (12/28/17) Barretts esophagus (10/14/15) Cataract Chronic constipation (12/15/17) Chronic obstructive lung disease Confusion Deficient knowledge of incentive spirometer family to work with her to use IS hourly while awake Dementia Depression Diastolic murmur of aorta DNI (do not intubate) DNR (do not resuscitate) Be catheter in place Frequent falls having hard time using walker due to cognitive impairment GI bleed a. Probably upper GI bleed. b. Discharged on a PPI. Grief Hallucinations due to late onset dementia both visual and auditory visual pronounced Hard of hearing Insomnia Lewy body dementia with behavioral disturbance returned to her normal functioning with tx for UTI Long-term current use of thyroid hormone replacement therapy Loss of vision Lower GI bleeding Oxygen dependent uses it prn Palliative care patient POLST (Physician Orders for Life-Sustaining Treatment) signed 2015; reviewed 2019 Recurrent UTI Sedentary lifestyle Self straight caths twice a day Sensorineural hearing loss, bilateral (02/23/18) FIT WITH HEARING AIDS 02/23/2018 DR ALONZO Suprapubic catheter Unstable gait Urinary obstruction sees Dr Montes, urology Urinary retention has suprapubic catheter January 2020 Vascular dementia Walker as ambulation aid cannot do this independently does need stand-by assistance. Surgical History Abdominal hysterectomy Wilks (Incontinence sling) Cerebral aneurysm clipping Colonoscopy - MAC EGD - MAC Open Carpal Tunnel release (11/25/15) RIGHT WRIST/DR. TAVERAS Repair of inguinal hernia bilateral Replacement of total knee joint bilateral venacaval filter Pt. S-I-L unsure if she has this Family History Daughter Depression Sister , age 82 from hemorrhagic stroke Dementia Stroke Son No problems noted. Social History Smoking/Tobacco Use Status: Former Tobacco Use Quit Date: 07/17/69 Tobacco: How many years used: 50 Second Hand Exposure: No Alcohol Intake: former Drug use: Never Substance use type: does not use Caregiver/Support person: Yes Household members: family Housing: house Number of Children: 2 number of grandchildren: 5 Communication Needs: Hard of Hearing and Corrective Lenses Education Level: high school Do you need help understanding health information?: Always current occupation: retired Pets and animals: Yes What is your relationship status?: How often do you talk on the phone with friends or family?: three or more times per week How often do you get together with friends or relatives?: three or more times per week Panel score (0-1 are the most socially isolated patients): 1 What type of physical activity do you participate in: assisted ambulation and irregular exercise Duration: < 15 minutes/day Special paramjit needs: No Agree to transfusion: Yes Seatbelt use: always Working smoke detector in home: Yes Do you feel safe at home: Yes Do you feel safe in your relationship?: Yes Additional Social history: Lives with daughter Hina, her , son, [id number] and 3 grandchildren. Happier now than she has been. Likes lots of activity. Usually, pre Covid 19, goes to [place] regularly. Not walking much. Falling again. Poor sense of balance. Legs give out. Weak. Won't do PT. Meds Home Medications and Allergies Home Medications Medication Instructions Recorded Confirmed Type isosorbide mononitrate 30 mg PO DAILY 10/12/15 04/13/20 History omeprazole 40 mg PO HS 10/12/15 04/13/20 History bupropion HCl [Wellbutrin SR] 100 mg PO DAILY 12/15/17 04/13/20 History fluoxetine [Prozac] 40 mg PO DAILY tab-cap 12/15/17 04/13/20 History rosuvastatin [Crestor] 10 mg PO QPM 01/26/18 04/13/20 History cholecalciferol (vitamin D3) 25 1,000 unit PO DAILY 02/05/19 04/13/20 History mcg (1,000 unit) capsule levothyroxine 100 mcg capsule 100 mcg PO DAILY #30 cap 02/20/20 04/13/20 Rx temazepam 15 mg capsule 15 mg PO QHS PRN #30 cap 02/27/20 04/13/20 Rx cefdinir 300 mg capsule 300 mg PO BID #14 cap 03/03/20 04/13/20 Rx meclizine 12.5 mg PO HS PRN 04/13/20 04/13/20 History Allergies Allergy/AdvReac Type Severity Reaction Status Date / Time influenza virus vaccine, Allergy Severe SOB Unverified 01/27/20 08:23 specific [Influenza Virus Vacc,Specific] fentanyl [From Duragesic] Allergy Intermediate Hives Unverified 01/27/20 08:23 hydrocodone Allergy Intermediate Itching Unverified 01/27/20 08:23 codeine [Codeine] AdvReac Severe Psychosis Unverified 01/27/20 08:23 quetiapine AdvReac Severe diarrhea Verified 02/06/20 20:49 ciprofloxacin AdvReac worsens Verified 02/25/20 15:10 dementia Exam Narrative Exam Narrative: 144/68, 79, 35.9, 20, 97%RA. HEENT atraumatic; neck supple; fabrizio ngs clear; heart RRR 2/6 sys murmur; abdomen +BS, soft, slight diffuse tenderness w/o rebound; extremities w/o edema; neuro ox1, moves all 4s Results Labs Result diagrams: 04/13/20 23:08 04/13/20 23:08 Labs: Laboratory Results - last 24 hr 04/13/20 04/13/20 04/13/20 23:08 23:08 23:08 WBC 10.64 RBC 3.28 L Hgb 9.9 L Hct 32.2 L MCV 98.2 H MCH 30.2 MCHC 30.7 L RDW 13.7 Plt Count 293 MPV 9.8 Immature Gran % 0.7 Neutrophils % 69.1 Lymphocytes % 20.5 Monocytes % 7.8 Eosinophils % 1.3 Basophils % 0.6 Nucleated RBC % 0 Absolute Neutrophils 7.36 H Absolute Lymphocytes 2.18 Absolute Monocytes 0.83 H Absolute Eosinophils 0.14 Absolute Basophils 0.06 PT INR APTT VBG Lactate 2.4 H* Sodium 135 L Potassium 4.3 Chloride 101 Carbon Dioxide 20.7 L Anion Gap 13.3 H BUN 28 H Creatinine 1.37 H Estimated GFR/1.73 m2 36.91 Glucose 141 H Calcium 8.6 Total Bilirubin 0.5 AST 26 ALT 11 L Alkaline Phosphatase 81 Total Protein 6.5 Albumin 3.2 L Patient ABO/Rh Antibody Screen Crossmatch 04/13/20 04/13/20 23:08 23:08 WBC RBC Hgb Hct MCV MCH MCHC RDW Plt Count MPV Immature Gran % Neutrophils % Lymphocytes % Monocytes % Eosinophils % Basophils % Nucleated RBC % Absolute Neutrophils Absolute Lymphocytes Absolute Monocytes Absolute Eosinophils Absolute Basophils PT 10.7 INR 1.1 APTT 19.8 L VBG Lactate Sodium Potassium Chloride Carbon Dioxide Anion Gap BUN Creatinine Estimated GFR/1.73 m2 Glucose Calcium Total Bilirubin AST ALT Alkaline Phosphatase Total Protein Albumin Patient ABO/Rh B Positive Antibody Screen Negative Crossmatch See Detail Last Vital Signs Pulse 73 04/14/20 00:25 Resp 20 04/14/20 00:50 BP 144/68 H 04/14/20 00:25 Pulse Ox 97 04/14/20 00:50 COVID-19 Screening Have you,or household,traveled outside [place] in last 14 days?: No Had IN PERSON contact w/suspected or confirmed C-19 person: No
[2020-04-14] MEDS: metroNIDAZOLE 500 MG/100 ML BAG 100 MG IVPB ×2 (01:55→10:12)
[2020-04-14] MEDS: cefTRIAXone 1 GM/50 ML BAG IVPB (01:55)
[2020-04-14] MEDS: Isosorbide Mononitrate 30 MG TABCR PO (08:00)
[2020-04-14] MEDS: FLUoxetine 20 MG CAP 40 MG PO (08:00)
[2020-04-14] MEDS: buPROPion-CR 100 MG TABCR PO (08:00)
[2020-04-14] MEDS: Levothyroxine 100 MCG TAB PO (08:00)
[2020-04-14 11:51] LABS: COVID-19 RT-PCR UVMMC Result Negative (Negative)
[2020-04-14 11:53] LABS: HCT 29.9 % (36.0-46.0); HGB 9.8 g/dL (11.2-15.7)
[2020-04-14 12:03] LABS: Anion Gap 10.5 mmol/L (3-11); BUN 30 mg/dL (7-18); CO2 22.5 mmol/L (21.0-32.0); CREATININE 1.13 mg/dL (0.55-1.02); Calcium 7.8 mg/dL (8.5-10.1); Chloride 106 mmol/L (98-107); Glucose 117 mg/dL (74-106); Potassium 3.9 mmol/L (3.5-5.1); Sodium 139 mmol/L (136-145)
[2020-04-14 12:12] LABS: FREE T4 2.04 ng/dL (0.76-1.46)
[2020-04-14] MEDS: Lactated Ringers 1,000 ML 100 ML IV ×2 (12:17→22:34)
[2020-04-14] MEDS: ACETAMINOPHEN 1,000 MG/100 ML BTL 400 MG IVPB ×2 (13:44→22:34)
--- NOTE | 2020-04-14 14:38 | SCONE_ITS ---
Date of service: 04/14/20 Time of Service: 14:38 Assessment and Plan Assessment and plan (1) Acute GI bleeding: Status: Acute Assessment and plan: The cause is most likely diverticular and will hopefully resolve spontaneously. We could consider colonoscopy later this week when she is able to prep, but it may not change the plan since she is not a good surgical candidate. If the bleeding persists and intervention is desired, could also consider interventional radiology/embolization. Will follow. History of Present Illness Narrative: This patient was admitted yesterday with a two day history of rectal bleeding. She has had several bloody stools while in the hospital. She reports some bilateral lower abdominal pain. She reports no difficulty eating, no N/V. Her history is limited due to dementia. Review of her chart shows that she was admitted for a diverticular bleeding in 2015. She had an EGD and colonoscopy earlier that year which showed a hiatal hernia and extensive diverticulosis. CT showed diverticulosis with possible mild inflammation in the sigmoid region. COUNTS INCLUDE 234 BEDS AT THE [facility] Medical History Agitation due to dementia Atelectasis Bacteriuria (12/28/17) Barretts esophagus (10/14/15) Cataract Chronic constipation (12/15/17) Chronic obstructive lung disease Confusion Deficient knowledge of incentive spirometer family to work with her to use IS hourly while awake Dementia Depression Diastolic murmur of aorta DNI (do not intubate) DNR (do not resuscitate) Be catheter in place Frequent falls having hard time using walker due to cognitive impairment GI bleed a. Probably upper GI bleed. b. Discharged on a PPI. Grief Hallucinations due to late onset dementia both visual and auditory visual pronounced Hard of hearing Insomnia Lewy body dementia with behavioral disturbance returned to her normal functioning with tx for UTI Long-term current use of thyroid hormone replacement therapy Loss of vision Lower GI bleeding Oxygen dependent uses it prn Palliative care patient POLST (Physician Orders for Life-Sustaining Treatment) signed 2015; reviewed 2019 Recurrent UTI Sedentary lifestyle Self straight caths twice a day Sensorineural hearing loss, bilateral (02/23/18) FIT WITH HEARING AIDS 02/23/2018 DR ALONZO Suprapubic catheter Unstable gait Urinary obstruction sees Dr Montes, urology Urinary retention has suprapubic catheter January 2020 Vascular dementia Walker as ambulation aid cannot do this independently does need stand-by assistance. Surgical History Abdominal hysterectomy Wilks (Incontinence sling) Cerebral aneurysm clipping Colonoscopy - MAC EGD - MAC Open Carpal Tunnel release (11/25/15) RIGHT WRIST/DR. TAVERAS Repair of inguinal hernia bilateral Replacement of total knee joint bilateral venacaval filter Pt. S-I-L unsure if she has this Family History Daughter Depression Sister , age 82 from hemorrhagic stroke Dementia Stroke Son No problems noted. Social History Smoking/Tobacco Use Status: Former Tobacco Use Quit Date: 07/17/69 Tobacco: How many years used: 50 Second Hand Exposure: No Alcohol Intake: former Drug use: Never Substance use type: does not use Caregiver/Support person: Yes Household members: family Housing: house Number of Children: 2 number of grandchildren: 5 Communication Needs: Hard of Hearing and Corrective Lenses Education Level: high school Do you need help understanding health information?: Always current occupation: retired Pets and animals: Yes What is your relationship status?: How often do you talk on the phone with friends or family?: three or more times per week How often do you get together with friends or relatives?: three or more times per week Panel score (0-1 are the most socially isolated patients): 1 What type of physical activity do you participate in: assisted ambulation and irregular exercise Duration: < 15 minutes/day Special paramjit needs: No Agree to transfusion: Yes Seatbelt use: always Working smoke detector in home: Yes Do you feel safe at home: Yes Do you feel safe in your relationship?: Yes Additional Social history: Lives with daughter Hina, her , son, [id number] and 3 grandchildren. Happier now than she has been. Likes lots of activity. Usually, pre Covid 19, goes to [place] regularly. Not walking much. Falling again. Poor sense of balance. Legs give out. Weak. Won't do PT. Exam Narrative Exam Narrative: No acute distress, alert Abdomen soft, mild bilateral lower abdominal tenderness. No masses Results Last Vital Signs Temp 98.1 F 04/14/20 10:35 Pulse 82 04/14/20 10:35 Resp 20 04/14/20 10:35 BP 142/80 H 04/14/20 10:35 Pulse Ox 95 04/14/20 10:35 Labs Result diagrams: 04/14/20 11:40 04/14/20 11:40 Labs: Laboratory Results - last 24 hr 04/13/20 04/13/20 04/13/20 23:08 23:08 23:08 WBC 10.64 RBC 3.28 L Hgb 9.9 L Hct 32.2 L MCV 98.2 H MCH 30.2 MCHC 30.7 L RDW 13.7 Plt Count 293 MPV 9.8 Immature Gran % 0.7 Neutrophils % 69.1 Lymphocytes % 20.5 Monocytes % 7.8 Eosinophils % 1.3 Basophils % 0.6 Nucleated RBC % 0 Absolute Neutrophils 7.36 H Absolute Lymphocytes 2.18 Absolute Monocytes 0.83 H Absolute Eosinophils 0.14 Absolute Basophils 0.06 PT INR APTT VBG Lactate 2.4 H* Sodium 135 L Potassium 4.3 Chloride 101 Carbon Dioxide 20.7 L Anion Gap 13.3 H BUN 28 H Creatinine 1.37 H Estimated GFR/1.73 m2 36.91 Glucose 141 H Calcium 8.6 Total Bilirubin 0.5 AST 26 ALT 11 L Alkaline Phosphatase 81 Total Protein 6.5 Albumin 3.2 L Free T4 COVID-19 PCR Nasopharyn COVID-19 PCR Ref Test Perform Site Patient ABO/Rh Antibody Screen Crossmatch 04/13/20 04/13/20 04/14/20 23:08 23:08 02:15 WBC RBC Hgb Hct MCV MCH MCHC RDW Plt Count MPV Immature Gran % Neutrophils % Lymphocytes % Monocytes % Eosinophils % Basophils % Nucleated RBC % Absolute Neutrophils Absolute Lymphocytes Absolute Monocytes Absolute Eosinophils Absolute Basophils PT 10.7 INR 1.1 APTT 19.8 L VBG Lactate Sodium Potassium Chloride Carbon Dioxide Anion Gap BUN Creatinine Estimated GFR/1.73 m2 Glucose Calcium Total Bilirubin AST ALT Alkaline Phosphatase Total Protein Albumin Free T4 COVID-19 PCR Negative Nasopharyn COVID-19 PCR Not Applicable Ref Test Perform Site [facility] lab Patient ABO/Rh B Positive Antibody Screen Negative Crossmatch See Detail 04/14/20 04/14/20 04/14/20 11:40 11:40 11:40 WBC RBC Hgb 9.8 L Hct 29.9 L MCV MCH MCHC RDW Plt Count MPV Immature Gran % Neutrophils % Lymphocytes % Monocytes % Eosinophils % Basophils % Nucleated RBC % Absolute Neutrophils Absolute Lymphocytes Absolute Monocytes Absolute Eosinophils Absolute Basophils PT INR APTT VBG Lactate Sodium 139 Potassium 3.9 Chloride 106 Carbon Dioxide 22.5 Anion Gap 10.5 BUN 30 H Creatinine 1.13 H Estimated GFR/1.73 m2 46.10 Glucose 117 H Calcium 7.8 L Total Bilirubin AST ALT Alkaline Phosphatase Total Protein Albumin Free T4 2.04 H COVID-19 PCR Nasopharyn COVID-19 PCR Ref Test Perform Site Patient ABO/Rh Antibody Screen Crossmatch
--- NOTE | 2020-04-14 14:50 | W.PM.PROGNOT ---
Date of Service Date of service: 04/14/20 Time of Service: 14:58 Assessment and Plan Assessment and plan (1) Acute GI bleeding: Start date: 04/14/20 Start time: 15:06 Status: Acute Assessment and plan: Continues to have pain with bloody BM. She has hx of diverticulosis, I suspect this is due to divertiuclitis bleed. Pain to abd. Continue protonix gtt, continue fomatidine Tylenol IV for pain Worsening confusion therefore will stop metradonizole/ ceftriaxone and start zosyn see is this improves confusion. Worse since this am. NPO Surgical consult (2) Diverticulitis: Start date: 04/14/20 Start time: 15:08 Status: Chronic Assessment and plan: As above. (3) Dementia: Start date: 04/14/20 Start time: 15:10 Status: Chronic Assessment and plan: Mild dementia, however over course of morning and afternoon has become increasingly confused. Could be due to delirium in hospital setting as well. Continue to monitor, changed antibiotics to see if this was causing worsening confusion. Qualifiers: Dementia type: unspecified type (4) Suprapubic catheter: Start date: 04/14/20 Start time: 15:10 Status: Chronic Assessment and plan: Continue care (5) Hypothyroidism: Start date: 04/14/20 Start time: 15:10 Status: Chronic Assessment and plan: TSH was low, she is currently on levothyroxine, will hold at this time. (6) Depressive disorder: Start date: 04/14/20 Start time: 15:15 Status: Chronic Assessment and plan: Continue wellbutrin and prozac (7) Hypertension: Start date: 04/14/20 Start time: 15:15 Status: Chronic Assessment and plan: Despite bleeding continues to have elevated BP, will continue Imdur (8) Anemia due to GI blood loss: Start date: 04/14/20 Start time: 15:16 Status: Resolved Assessment and plan: Received 2 units PRBC, repeat h/h 9.03/14. Will repeat h/h at 1800 given patient continues to have bloody bm (9) Discharge planning issues: Start date: 04/14/20 Start time: 15:17 Status: Acute Assessment and plan: Palliative care to see patient. Lives with daughter at home and will likely return there on discharge Above case discussed with Dr. chowdhury who is in agreement. Subjective Subjective Patient reports: other Interval history since last seen: Patient is having worsening confusion. Could be due to metridonazole. Switch to zosyn for antibiotic regimen. Will need 7 days of IV antibiotics. Confusion could also be in setting of delirium from being in hospital will trial trazadone for this. Pain with palpation to abdomen. Exam Narrative Exam Narrative: Elderly female laying in bed, unable to answer questions. Oriented to self only. Garbled speech at times. No facial droop. PERRLA, EOMI, unwilling to cooperate but moves all limbs freely no clubbing cyanosis or edema. HR regular with murmur. LSC. She has good color, pink. Continues to have bloody bowel movements. Pain with palpation to abdomen in bilateral lower quads. Objective Last Vital Signs Temp 36.7 C 04/14/20 10:35 Pulse 82 04/14/20 10:35 Resp 20 04/14/20 10:35 BP 142/80 H 04/14/20 10:35 Pulse Ox 95 04/14/20 10:35 Laboratory Results - last 24 hr 04/13/20 04/13/20 04/13/20 23:08 23:08 23:08 WBC 10.64 RBC 3.28 L Hgb 9.9 L Hct 32.2 L MCV 98.2 H MCH 30.2 MCHC 30.7 L RDW 13.7 Plt Count 293 MPV 9.8 Immature Gran % 0.7 Neutrophils % 69.1 Lymphocytes % 20.5 Monocytes % 7.8 Eosinophils % 1.3 Basophils % 0.6 Nucleated RBC % 0 Absolute Neutrophils 7.36 H Absolute Lymphocytes 2.18 Absolute Monocytes 0.83 H Absolute Eosinophils 0.14 Absolute Basophils 0.06 PT INR APTT VBG Lactate 2.4 H* Sodium 135 L Potassium 4.3 Chloride 101 Carbon Dioxide 20.7 L Anion Gap 13.3 H BUN 28 H Creatinine 1.37 H Estimated GFR/1.73 m2 36.91 Glucose 141 H Calcium 8.6 Total Bilirubin 0.5 AST 26 ALT 11 L Alkaline Phosphatase 81 Total Protein 6.5 Albumin 3.2 L Free T4 COVID-19 PCR Nasopharyn COVID-19 PCR Ref Test Perform Site Patient ABO/Rh Antibody Screen Crossmatch 09/28/20 09/28/20 09/29/20 23:08 23:08 02:15 WBC RBC Hgb Hct MCV MCH MCHC RDW Plt Count MPV Immature Gran % Neutrophils % Lymphocytes % Monocytes % Eosinophils % Basophils % Nucleated RBC % Absolute Neutrophils Absolute Lymphocytes Absolute Monocytes Absolute Eosinophils Absolute Basophils PT 10.7 INR 1.1 APTT 19.8 L VBG Lactate Sodium Potassium Chloride Carbon Dioxide Anion Gap BUN Creatinine Estimated GFR/1.73 m2 Glucose Calcium Total Bilirubin AST ALT Alkaline Phosphatase Total Protein Albumin Free T4 COVID-19 PCR Negative Nasopharyn COVID-19 PCR Not Applicable Ref Test Perform Site [facility] Patient ABO/Rh B Positive Antibody Screen Negative Crossmatch See Detail 04/14/20 04/14/20 04/14/20 11:40 11:40 11:40 WBC RBC Hgb 9.8 L Hct 29.9 L MCV MCH MCHC RDW Plt Count MPV Immature Gran % Neutrophils % Lymphocytes % Monocytes % Eosinophils % Basophils % Nucleated RBC % Absolute Neutrophils Absolute Lymphocytes Absolute Monocytes Absolute Eosinophils Absolute Basophils PT INR APTT VBG Lactate Sodium 139 Potassium 3.9 Chloride 106 Carbon Dioxide 22.5 Anion Gap 10.5 BUN 30 H Creatinine 1.13 H Estimated GFR/1.73 m2 46.10 Glucose 117 H Calcium 7.8 L Total Bilirubin AST ALT Alkaline Phosphatase Total Protein Albumin Free T4 2.04 H COVID-19 PCR Nasopharyn COVID-19 PCR Ref Test Perform Site Patient ABO/Rh Antibody Screen Crossmatch
--- NOTE | 2020-04-14 15:38 | INITIAL_ITS ---
- If Service Date Differs Date of service: 04/14/20 Time of Service: 15:38 Care Management Initial Assess REASON FOR HOSPITALIZATION:: Lower GI Bleed PAST MEDICAL HISTORY/PAST SURGICAL HISTORY:: Medical History . Agitation due to dementia. Atelectasis. Bacteriuria (12/28/17). Barretts esophagus (10/14/15). Cataract. Chronic constipation (12/15/17). Chronic obstructive lung disease. Confusion. Deficie nt knowledge of incentive spirometer. family to work with her to use IS hourly while awake. Dementia. Depression. Diastolic murmur of aorta. DNI (do not intubate). DNR (do not resuscitate). Be catheter in place. Frequent falls. having hard time using walker due to cognitive impairment. GI bleed. a. Probably upper GI bleed. b. Discharged on a PPI. Grief. Hallucinations due to late onset dementia. both visual and auditory. visual pronounced. Hard of hearing. Insomnia. Lewy body dementia with behavioral disturbance. returned to her normal functioning with tx for UTI. Long-term current use of thyroid hormone replacement therapy. Loss of vision. Lower GI bleeding. Oxygen dependent. uses it prn. Palliative care patient. POLST (Physician Orders for Life-Sustaining Treatment). signed 2015; reviewed 2019. Recurrent UTI. Sedentary lifestyle. Self straight caths twice a day. Sensorineural hearing loss, bilateral (02/23/18). FIT WITH HEARING AIDS 02/23/2018 DR ALONZO. Suprapubic catheter. Unstable gait. Urinary obstruction. sees Dr Montes, urology. Urinary retention. has suprapubic catheter January 2020. Vascular dementia. Walker as ambulation aid. cannot do this independently does need stand-by assistance. Surgical History . Abdominal hysterectomy. Wilks (Incontinence sling). Cerebral aneurysm clipping. Colonoscopy - MAC. EGD - MAC. Open Carpal Tunnel release (11/25/15). RIGHT WRIST/DR. TAVERAS. Repair of inguinal hernia. bilateral. Replacement of total knee joint. bilateral. venacaval filter. Pt. S-I-L unsure if she has this PREVIOUS FUNCTIONAL STATUS/SOCIAL/FAMILY SUPPORTS:: Pratik lives in [facility] with her daughter, Hina and son in law. Hina is her DPOA, per report. Previously, she would spend her days at [facility], but it has been closed due to Covid. She relies on her daughter and family for assistance with ambulation and ADL's. She has one on one care at all times. CURRENT FUNCTIONAL STATUS:: Pratik was lying in bed when CM met with her. She was not able to engage with CM at that time. Later, CM met with Hina, her daughter, who is her primary residential caregiver at home. Hina explained her mother's needs and schedule with CM, stating that she does have some help from [facility]. She stated that her needs have increased since she began on the [facility] program, but she is determined to care for her mother at home through the end of her life. She stated that she has siblings, but they are not involved in her care. CM will reach out to Pratik's [facility] case management social worker to discuss her increase in support, if possible. CM will continue to follow. ADVANCE DIRECTIVES:: [employer] on file. Hina Vogel (daughter) listed as agent. Hina is also listed as DPOA, paperwork on file. Has patient been provided with info about the portal/API?: Yes Did the patient sign up for the portal?: Yes (previously) CODE STATUS:: DNR/DNI INSURANCE COVERAGE / FINANCIAL ISSUES:: MCR/ [employer] CURRENT HOME/COMMUNITY SERVICES/EQUIPMENT:: [facility]. Pratik lives with family who help with ADL's. She has [facility], case management social worker Apryl Ortega. PRIMARY CARE PHYSICIAN:: Sabine Ludwig POTENTIAL DISCHARGE NEEDS:: Evaluations for further needs, follow up appointments PATIENT/FAMILY EDUCATION NEEDS:: Review discharge instructions with pt and family, discussion of goals of care. ANTICIPATED BARRIERS TO DISCHARGE:: None identified at this time. TRANSPORTATION:: Via private vehicle by family. PLAN:: Anticipate Pratik will return home with her daughter, Hina, when medically cleared. She will be driven home via private vehicle. She will follow up with her PCP, Palliative care and her discharge plan of care. CM will continue to follow.
[2020-04-14 15:50] LABS: Bilirubin Small (Negative); Blood Trace-intact (Negative); Clarity Sl Cloudy (Clear); Glucose Negative (Negative); Ketones Trace mg/dL (Negative); Leukocyte Esterase Small (Negative); Nitrite Positive (Negative); Specific Gravity >= 1.030 (1.005-1.025); Urobilinogen 0.2 EU/dL (Up TO 0.2); pH 5.5 (5-8)
--- NOTE | 2020-04-14 15:54 | PHA.REVIEW ---
Pharmacy Admission Review - Admission Clinical Review (Last Reviewed 04/14/20 @ 01:26 by Fredy Cho MD) Discharge planning issues (Acute) Acute GI bleeding (Acute) influenza virus vaccine, specific [Influenza Virus Vacc,Specific] Allergy (Severe, Unverified 04/14/20 02:39) SOB fentanyl [From Duragesic] Allergy (Intermediate, Unverified 04/14/20 02:39) Hives hydrocodone Allergy (Intermediate, Unverified 04/14/20 02:39) Itching codeine [Codeine] Adverse Reaction (Severe, Unverified 04/14/20 02:39) Psychosis quetiapine Adverse Reaction (Severe, Verified 04/14/20 02:39) diarrhea ciprofloxacin Adverse Reaction (Verified 04/14/20 02:39) worsens dementia Height 5 ft 1 in Weight 64.2 kg - Renal Dosing Renal Dosing: BUN 30 mg/dL (7-18) H 04/14/20 11:40 Creatinine 1.13 mg/dL (0.55-1.02) H 04/14/20 11:40 Medications needing adjustments: Reviewed (Crcl ~28.9 mL/min current meds okay. Zosyn renally adjusted.) - Anticoagulation Anticoagulation: Hgb 9.8 g/dL (11.2-15.7) L 04/14/20 11:40 Hct 29.9 % (36.0-46.0) L 04/14/20 11:40 Plt Count 293 10^3/uL (130-400) 04/13/20 23:08 INR 1.1 (0.9-1.1) 04/13/20 23:08 Creatinine 1.13 mg/dL (0.55-1.02) H 04/14/20 11:40 DVT Prohphylaxis: N/A (lower GI bleed) Therapeutic Anticoagulation: N/A - Opiate Usage Evaluate Pain Scale/Pains Meds: N/A - Relevant Labs Sodium 139 mmol/L (136-145) 04/14/20 11:40 Potassium 3.9 mmol/L (3.5-5.1) 04/14/20 11:40 Chloride 106 mmol/L (98-107) 04/14/20 11:40 Electrolytes, C-Reactive P, ESR: Reviewed - DM Control DM Control: Glucose 117 mg/dL (74-106) H 04/14/20 11:40 Insulin Dosing: N/A (has been slightly elevated when checked at [facility] going back to 2017. No A1c noted.) - Heart Failure/TN EF%, MAE's, B-Blockers, Diuretics: N/A - BP Control BP Control: Blood Pressure 142/80 Blood Pressure 140/81 Blood Pressure 137/77 Blood Pressure 145/81 Blood Pressure 145/81 Blood Pressure 120/71 If elevated: Reviewed (normal to high since admission) - Qtc Review If Elevated: N/A - IV to PO Switch IV Medications: Reviewed - Home Meds Home Med List reviewed: Reviewed Relevent Home Meds Not ordered & why?: cefdinir (has other abx ordered), cholecalciferol, and meclizine (PRN). Levothyroxine dose was decreased today, Free T4 2.04 - Current meds Current Medication Order Review: Intervened (changed ceftriaxone from admix to premix prior to abx change) - Comments Comments/Follow Ups: Watch BP, BG, SCr, H/H, for micro results and for med changes (renal adjustments, IV to PO). Antibiotic Activity - Pharmacy Antibiotic Review Pharmacy Antibiotic Activity: Abx regimen adjustment (ceftriaxone and metronidazole changed to zosyn to cover for diverticulitis as provider was concerned that metronidazole may be contributing to pts increased confusion. Urine culture pending, C.Diff negative)
[2020-04-14 15:58] LABS: Bacteria Many HPF (Negative); C & S Indicated? Yes; Casts Negative LPF (Negative); Crystals Negative HPF (Negative); Epithelial Cells Few HPF (Negative); Mucus Moderate (Negative); Other Cells Moderate Renal (Negative); RBC >50 HPF (0-2); WBC >50 HPF (0-5)
[2020-04-14] MEDS: PIPERACILLIN/TAZO 3.375 GM in Normal Saline 50 ML IVPB ×2 (16:28→22:34)
[2020-04-14] MEDS: LORazepam 2 MG/ML VIAL 0.5 MG IVP ×2 (16:28→19:30)
[2020-04-14] MEDS: Normal Saline Flush 10 ML SYR IVP ×3 (16:29→20:15)
[2020-04-14 19:25] LABS: HCT 28.5 % (36.0-46.0); HGB 9.3 g/dL (11.2-15.7)
[2020-04-15] VITALS (12 sets, daily range): BP systolic 109–157; BP diastolic 68–82; PULSE 68–80; RESP 14–19; TEMP 36–37.2; O2SAT 92–97
[2020-04-15] MEDS: PIPERACILLIN/TAZO 3.375 GM in Normal Saline 50 ML IVPB ×4 (03:54→23:00)
[2020-04-15] MEDS: ACETAMINOPHEN 1,000 MG/100 ML BTL 400 MG IVPB ×2 (06:38→18:47)
--- NOTE | 2020-04-15 07:18 | PGE_ITS ---
Date of Service Date of service: 04/15/20 Time of Service: 07:18 Assessment and Plan Assessment and plan (1) Acute GI bleeding: Status: Acute Assessment and plan: Refused abdominal exam this morning, stating it hurts too much. Continue with medical management- pain control, IV fluids and ATB. Subjective Subjective Interval history since last seen: Patient is awake, lying in bed. She is very agitated this morning, telling nursing staff to leave. She reports that her stomach hurts. Exam Const General: anxious and combative Orientation: alert and awake Resp Effort & Inspection: normal respiratory effort, no audible wheezes and no cough GI Other: Refused abdominal exam. Objective Last Vital Signs Temp 36.6 C 04/14/20 17:30 Pulse 84 04/14/20 17:30 Resp 22 04/14/20 17:30 BP 121/77 04/14/20 17:30 Pulse Ox 94 04/14/20 17:30 Laboratory Results - last 24 hr 04/13/20 04/14/20 04/14/20 23:08 02:15 11:40 Hgb 9.8 L Hct 29.9 L Sodium Potassium Chloride Carbon Dioxide Anion Gap BUN Creatinine Estimated GFR/1.73 m2 Glucose Calcium Free T4 Urine Color Urine Clarity Urine pH Ur Specific [place] Urine Protein Urine Ketones Urine Blood Urine Nitrite Urine Bilirubin Urine Urobilinogen Ur Leukocyte Esterase Urine RBC Urine WBC Ur Epithelial Cells Urine Crystals Urine Bacteria Urine Casts Urine Mucus Urine Other Ur Culture Indicated? Urine Glucose COVID-19 PCR Negative Nasopharyn COVID-19 PCR Not Applicable Ref Test Perform Site [facility] lab Patient ABO/Rh B Positive Antibody Screen Negative Crossmatch See Detail 04/14/20 04/14/20 04/14/20 11:40 11:40 15:15 Hgb Hct Sodium 139 Potassium 3.9 Chloride 106 Carbon Dioxide 22.5 Anion Gap 10.5 BUN 30 H Creatinine 1.13 H Estimated GFR/1.73 m2 46.10 Glucose 117 H Calcium 7.8 L Free T4 2.04 H Urine Color Yellow Urine Clarity Sl cloudy Urine pH 5.5 Ur Specific [place] >= 1.030 H Urine Protein 30 H Urine Ketones Trace H Urine Blood Trace-intact H Urine Nitrite Positive H Urine Bilirubin Small H Urine Urobilinogen 0.2 Ur Leukocyte Esterase Small H Urine RBC >50 H Urine WBC >50 H Ur Epithelial Cells Few Urine Crystals Negative Urine Bacteria Many Urine Casts Negative Urine Mucus Moderate Urine Other Moderate renal Ur Culture Indicated? Yes Urine Glucose Negative COVID-19 PCR Nasopharyn COVID-19 PCR Ref Test Perform Site Patient ABO/Rh Antibody Screen Crossmatch 04/14/20 19:12 Hgb 9.3 L Hct 28.5 L Sodium Potassium Chloride Carbon Dioxide Anion Gap BUN Creatinine Estimated GFR/1.73 m2 Glucose Calcium Free T4 Urine Color Urine Clarity Urine pH Ur Specific [place] Urine Protein Urine Ketones Urine Blood Urine Nitrite Urine Bilirubin Urine Urobilinogen Ur Leukocyte Esterase Urine RBC Urine WBC Ur Epithelial Cells Urine Crystals Urine Bacteria Urine Casts Urine Mucus Urine Other Ur Culture Indicated? Urine Glucose COVID-19 PCR Nasopharyn COVID-19 PCR Ref Test Perform Site Patient ABO/Rh Antibody Screen Crossmatch
[2020-04-15 07:39] LABS: Abs Immature Grans 0.12 10^3/uL (0.0-0.06); Absolute Basophil Count 0.06 10^3/uL (0.0-0.2); Absolute Eosinophil Count 0.22 10^3/uL (0.0-0.7); Absolute Lymphocyte Count 1.67 10^3/uL (1.2-3.4); Absolute Monocyte Count 1.23 10^3/uL (0.1-0.8); Absolute Neutrophil Count 7.05 10^3/uL (1.2-6.7); Basophils % 0.6; Eosinophils % 2.1; HCT 22.9 % (36.0-46.0); HGB 7.7 g/dL (11.2-15.7); Immature Grans % 1.2; Lymphocytes % 16.1; MCH 30.8 pg (27.0-33.0); MCHC 33.6 % (32.0-36.0); MCV 91.6 fL (80-95); MPV 10.4 fL (8.0-11.0); Monocytes % 11.9; Neutrophils % 68.1; Nucleated RBC 0 %; Platelet Count 150 10^3/uL (130-400); RDW 15.1 % (11.7-14.6); WBC 10.35 10^3/uL (4.4-10.8)
[2020-04-15 07:40] LABS: BUN 28 mg/dL (7-18); CREATININE 1.27 mg/dL (0.55-1.02); Calcium 8.3 mg/dL (8.5-10.1); Chloride 109 mmol/L (98-107); Estimated GFR 40.29 (mL/min/1.73m2); Glucose 92 mg/dL (74-106); Magnesium 1.7 mg/dL (1.8-2.4); Sodium 141 mmol/L (136-145)
[2020-04-15] MEDS: FLUoxetine 20 MG CAP 40 MG PO (09:15)
[2020-04-15] MEDS: buPROPion-CR 100 MG TABCR PO (09:15)
[2020-04-15] MEDS: Isosorbide Mononitrate 30 MG TABCR PO (09:15)
--- NOTE | 2020-04-15 10:46 | W.PM.PROGNOT ---
Date of Service Date of service: 04/15/20 Time of Service: 10:46 Assessment and Plan Assessment and plan (1) Acute GI bleeding: Status: Acute Assessment and plan: Continues to have pain with bloody BM. She has hx of diverticulosis, suspect this is due to divertiuclitis bleed. Pain to abd seems better today. omeprazole daily Tylenol IV for pain abx changed to zosyn secondary to confusion. diet was advanced last evening. Surgical consult (2) Diverticulitis: Status: Chronic Assessment and plan: As above. (3) Dementia: Status: Chronic Assessment and plan: Mild dementia, however over course of morning and afternoon has become increasingly confused. Could be due to delirium in hospital setting as well. Continue to monitor, changed antibiotics to see if this was causing worsening confusion. Qualifiers: Dementia type: unspecified type (4) Suprapubic catheter: Status: Chronic Assessment and plan: Continue care (5) Hypothyroidism: Status: Chronic Assessment and plan: TSH was low at 0.01, she is currently on levothyroxine, will hold at this time. plan discharge home on reduced dosing (6) Depressive disorder: Status: Chronic Assessment and plan: Continue wellbutrin and prozac. (7) Hypertension: Status: Chronic Assessment and plan: Despite bleeding continues to have elevated BP, will continue Imdur (8) Anemia due to GI blood loss: Status: Resolved Assessment and plan: will receive 1 units PRBC today, repeat h/h down from 9.8/29 to 7.7/22.9. Will repeat h/h 2 hours after transfusion, lasix post transfusion. (9) Discharge planning issues: Status: Acute Assessment and plan: Palliative care to see patient. Lives with daughter at home and will likely return there on discharge Above case discussed with Dr. chowdhury who is in agreement. Subjective Subjective Patient reports: feels better and afebrile Interval history since last seen: pleasantly confused, continues to have bloody loose stools. Exam Const General: cooperative, healthy appearing (elderly female of stated age), comfortable and no acute distress Nutritional Appearance: overweight Orientation: alert, awake and confused Limitations: other limitations (advanced dementia, unable to provide history) HENMT Head: normal to inspection, normocephalic and atraumatic Mouth: oral mucosae normal Resp Effort & Inspection: normal respiratory effort Auscultation: crackles bilaterally at the base Cardio Rate: regular rate Rhythm: regular rhythm Heart Sounds: murmur systolic IV/ GI Inspection: normal to inspection Palpation: soft Auscultation: normal bowel sounds General: other (suprapubic catheter, concentrated urine) Neuro General: patient alert, patient awake, patient oriented x3 and moves all extremities Extrem General: normal to inspection, full ROM and no pedal edema Objective Last Vital Signs Temp 36.2 C L 04/15/20 07:42 Pulse 77 04/15/20 07:42 Resp 19 04/15/20 07:42 BP 138/76 04/15/20 07:42 Pulse Ox 92 04/15/20 09:15 Laboratory Results - last 24 hr 04/13/20 04/14/20 04/14/20 23:08 02:15 11:40 WBC RBC Hgb 9.8 L Hct 29.9 L MCV MCH MCHC RDW Plt Count MPV Immature Gran % Neutrophils % Lymphocytes % Monocytes % Eosinophils % Basophils % Nucleated RBC % Absolute Neutrophils Absolute Lymphocytes Absolute Monocytes Absolute Eosinophils Absolute Basophils Sodium Potassium Chloride Carbon Dioxide Anion Gap BUN Creatinine Estimated GFR/1.73 m2 Glucose Calcium Magnesium Free T4 Urine Color Urine Clarity Urine pH Ur Specific [place] Urine Protein Urine Ketones Urine Blood Urine Nitrite Urine Bilirubin Urine Urobilinogen Ur Leukocyte Esterase Urine RBC Urine WBC Ur Epithelial Cells Urine Crystals Urine Bacteria Urine Casts Urine Mucus Urine Other Ur Culture Indicated? Urine Glucose COVID-19 PCR Negative Nasopharyn COVID-19 PCR Not Applicable Ref Test Perform Site [facility] lab Crossmatch See Detail 04/14/20 04/14/20 04/14/20 11:40 11:40 15:15 WBC RBC Hgb Hct MCV MCH MCHC RDW Plt Count MPV Immature Gran % Neutrophils % Lymphocytes % Monocytes % Eosinophils % Basophils % Nucleated RBC % Absolute Neutrophils Absolute Lymphocytes Absolute Monocytes Absolute Eosinophils Absolute Basophils Sodium 139 Potassium 3.9 Chloride 106 Carbon Dioxide 22.5 Anion Gap 10.5 BUN 30 H Creatinine 1.13 H Estimated GFR/1.73 m2 46.10 Glucose 117 H Calcium 7.8 L Magnesium Free T4 2.04 H Urine Color Yellow Urine Clarity Sl cloudy Urine pH 5.5 Ur Specific [place] >= 1.030 H Urine Protein 30 H Urine Ketones Trace H Urine Blood Trace-intact H Urine Nitrite Positive H Urine Bilirubin Small H Urine Urobilinogen 0.2 Ur Leukocyte Esterase Small H Urine RBC >50 H Urine WBC >50 H Ur Epithelial Cells Few Urine Crystals Negative Urine Bacteria Many Urine Casts Negative Urine Mucus Moderate Urine Other Moderate renal Ur Culture Indicated? Yes Urine Glucose Negative COVID-19 PCR Nasopharyn COVID-19 PCR Ref Test Perform Site Crossmatch 04/14/20 04/15/20 04/15/20 19:12 06:50 06:50 WBC 10.35 RBC 2.50 L Hgb 9.3 L 7.7 L Hct 28.5 L 22.9 L MCV 91.6 MCH 30.8 MCHC 33.6 RDW 15.1 H Plt Count 150 D MPV 10.4 Immature Gran % 1.2 Neutrophils % 68.1 Lymphocytes % 16.1 Monocytes % 11.9 Eosinophils % 2.1 Basophils % 0.6 Nucleated RBC % 0 Absolute Neutrophils 7.05 H Absolute Lymphocytes 1.67 Absolute Monocytes 1.23 H Absolute Eosinophils 0.22 Absolute Basophils 0.06 Sodium 141 Potassium 5.0 D Chloride 109 H Carbon Dioxide 18.0 L Anion Gap 14.0 H BUN 28 H Creatinine 1.27 H Estimated GFR/1.73 m2 40.29 Glucose 92 Calcium 8.3 L Magnesium 1.7 L Free T4 Urine Color Urine Clarity Urine pH Ur Specific [place] Urine Protein Urine Ketones Urine Blood Urine Nitrite Urine Bilirubin Urine Urobilinogen Ur Leukocyte Esterase Urine RBC Urine WBC Ur Epithelial Cells Urine Crystals Urine Bacteria Urine Casts Urine Mucus Urine Other Ur Culture Indicated? Urine Glucose COVID-19 PCR Nasopharyn COVID-19 PCR Ref Test Perform Site Crossmatch
[2020-04-15] MEDS: Lactated Ringers 1,000 ML 100 ML IV (10:53)
[2020-04-15] MEDS: Furosemide 20 MG/2 ML VIAL IVP (12:54)
[2020-04-15] MEDS: Normal Saline Flush 10 ML SYR IVP ×2 (12:59→19:37)
--- NOTE | 2020-04-15 13:56 | PDOC.CMPRO ---
- If Service Date Differs Date of service: 04/15/20 Time of Service: 13:56 Care Management Progress Note S/O: Pratik was sitting up in bed when CM met with her. She was alert, but did not engage in conversation. CM spoke to her daughter, Hina, at length yesterday evening regarding the care she provides to her mother. Hina stated that she would be her mother's administrator health care facility through the end of her life, as she did for her father previously. She discussed her mother's episodes of distress related to her dementia, and how it can be difficult at time, as she has very little respite. Hina stated that her mother has a long relationship with Dr. Sandoval, who plans to see Pratik while inpatient. Hina referenced her mother's COLST form which states 'limited interventions', with comfort as her goal of care. CM will attempt to coordinate the Palliative visit with Hina, which will need to happen in the afternoon, as Hina works until about 4pm daily in [place]. CM will continue to follow. A: Pratik is an 80 year old female admitted to [facility] on 04/15/20 with GI bleeding. P: Anticipate Pratik will return home to the care of her daughter, Hina, once medically cleared. Palliative will see Pratik to discuss ongoing goals of care. She will resume HH RN once discharged, and will be driven home by Hina in a private vehicle. She will follow up with her PCP and discharge plan of care. CM will continue to follow.
--- NOTE | 2020-04-15 15:44 | CHAPLAIN ---
Pratik was sitting up in her chair when I visited. I could not understand everything she was telling me, but she was pleasant and continued to engage in a conversation with me. She lives at her daughter's home and her daughter is her caregiver.
[2020-04-15] MEDS: MAGNESIUM SULFATE 1 GM/100 ML BAG IVPB (16:39)
[2020-04-15 18:58] LABS: HCT 29.6 % (36.0-46.0); HGB 9.7 g/dL (11.2-15.7)
[2020-04-15] MEDS: Rosuvastatin 10 MG TAB PO (19:36)
[2020-04-15] MEDS: LORazepam 2 MG/ML VIAL 1 MG IVP (20:15)
[2020-04-16] MEDS: ACETAMINOPHEN 1,000 MG/100 ML BTL 400 MG IVPB ×2 (01:49→10:29)
[2020-04-16] MEDS: Lactated Ringers 1,000 ML 100 ML IV (01:50)
[2020-04-16] MEDS: LORazepam 2 MG/ML VIAL 1 MG IVP (02:05)
[2020-04-16] MEDS: PIPERACILLIN/TAZO 3.375 GM in Normal Saline 50 ML IVPB ×2 (03:58→09:48)
[2020-04-16 06:53] LABS: HCT 27.4 % (36.0-46.0); HGB 9.2 g/dL (11.2-15.7); MCHC 33.6 % (32.0-36.0); MCV 92.3 fL (80-95); MPV 9.5 fL (8.0-11.0); Platelet Count 166 10^3/uL (130-400); RBC 2.97 10^6/uL (3.93-5.22); RDW 14.9 % (11.7-14.6); RDW-SD 49.7 fL
[2020-04-16 07:04] LABS: Anion Gap 10.1 mmol/L (3-11); BUN 19 mg/dL (7-18); CO2 23.9 mmol/L (21.0-32.0); CREATININE 1.28 mg/dL (0.55-1.02); Calcium 7.8 mg/dL (8.5-10.1); Chloride 106 mmol/L (98-107); Estimated GFR 39.92 (mL/min/1.73m2); Glucose 76 mg/dL (74-106); Magnesium 1.6 mg/dL (1.8-2.4); Potassium 3.1 mmol/L (3.5-5.1); Sodium 140 mmol/L (136-145)
[2020-04-16 07:47] VITALS: BP 168/77; PULSE 69; RESP 18; TEMP 37.3; O2SAT 95
--- NOTE | 2020-04-16 08:41 | PGE_ITS ---
Date of Service Date of service: 04/16/20 Time of Service: 14:38 Assessment and Plan Assessment and plan (1) UTI (urinary tract infection): Status: Resolved Assessment and plan: urine culture growing pseudomonas sensitive to zosyn which she received 8 doses of. likely represented colonization. will monitor for symptoms. no further antibiotics for this now. (2) Acute GI bleeding: Status: Acute Assessment and plan: no further pain or bloody BM. She has hx of dive rticulosis, suspect this is due to diverticulitis bleed. will down-step to augmentin for 5 more day to complete a 7 day course, has been on zosyn for 2 days. omeprazole daily has been tolerating clear PO diet so will advance. discontinue IV fluids Surgery following, no plan for scope at this time. (3) Diverticulitis: Status: Chronic Assessment and plan: As above. (4) Dementia: Status: Chronic Assessment and plan: Mild dementia, however over course of morning and afternoon has become increasingly confused. Could be due to delirium in hospital setting as well. Continue to monitor, changed antibiotics to see if this was causing worsening confusion. Qualifiers: Dementia type: unspecified type (5) Suprapubic catheter: Status: Chronic Assessment and plan: Continue care (6) Hypothyroidism: Status: Chronic Assessment and plan: TSH was low at 0.01, she is currently on levothyroxine, will hold at this time. plan discharge home on reduced dosing (7) Depressive disorder: Status: Chronic Assessment and plan: Continue wellbutrin and prozac. (8) Hypertension: Status: Chronic Assessment and plan: continue monitor and will continue Imdur (9) Anemia due to GI blood loss: Status: Resolved Assessment and plan: received 1 units PRBC yesterday for a total of 3. h/h has now been stable. (10) Discharge planning issues: Status: Acute Assessment and plan: Palliative care consult. Lives with daughter at home and will return there on discharge Above case discussed with Dr. chowdhury who is in agreement. Subjective Subjective Patient reports: feels better and afebrile Interval history since last seen: pleasantly confused, no bloody stools since yesterday afternoon. eating and drinking, no fevers. hemodynamically stable. Exam Const General: cooperative, healthy appearing (elderly female of stated age), comfortable and no acute distress Nutritional Appearance: overweight Orientation: alert, awake and confused Limitations: other limitations (advanced dementia, unable to provide history) HENME Head: normal to inspection, normocephalic and atraumatic Mouth: oral mucosae normal Resp Effort & Inspection: normal respiratory effort Auscultation: crackles bilaterally at the base Cardio Rate: regular rate Rhythm: regular rhythm Heart Sounds: murmur systolic IV/ GI Inspection: normal to inspection Palpation: soft Auscultation: normal bowel sounds General: other (suprapubic catheter, concentrated urine) Neuro General: patient alert, patient awake, patient oriented x3 and moves all extremities Extrem General: normal to inspection, full ROM and no pedal edema Objective Last Vital Signs Temp 37.3 C 04/16/20 07:47 Pulse 69 04/16/20 07:47 Resp 18 04/16/20 07:47 BP 168/77 H 04/16/20 07:47 Pulse Ox 95 04/16/20 07:47 Laboratory Results - last 24 hr 04/13/20 04/15/20 04/16/20 23:08 18:45 06:25 WBC RBC Hgb 9.7 L Hct 29.6 L D MCV MCH MCHC RDW Plt Count MPV Sodium 140 Potassium 3.1 L D Chloride 106 Carbon Dioxide 23.9 Anion Gap 10.1 BUN 19 H D Creatinine 1.28 H Estimated GFR/1.73 m2 39.92 Glucose 76 Calcium 7.8 L Magnesium 1.6 L Patient ABO/Rh B Positive Antibody Screen Negative Crossmatch See Detail 04/16/20 06:25 WBC 8.40 RBC 2.97 L Hgb 9.2 L Hct 27.4 L MCV 92.3 MCH 31.0 MCHC 33.6 RDW 14.9 H Plt Count 166 MPV 9.5 Sodium Potassium Chloride Carbon Dioxide Anion Gap BUN Creatinine Estimated GFR/1.73 m2 Glucose Calcium Magnesium Patient ABO/Rh Antibody Screen Crossmatch
--- NOTE | 2020-04-16 08:53 | W.PM.PROGNOT ---
Date of Service Date of service: 04/16/20 Time of Service: 08:53 Assessment and Plan Assessment and plan (1) Acute GI bleeding: Status: Acute Assessment and plan: No recent bloody stools, HgB stable Colonoscopy would not change the plan with her and she would not likely cooperate with a prep. Discussed with hospitalist service. Will advance diet to soft, change to PO antibiotics and work towards discharge. Subjective Subjective Interval history since last seen: Nursing reports last bloody stool was at 1330 yesterday and prior was 24 hours before that. She is not eating much and is confused but denies pain. Exam Narrative Exam Narrative: Sitting up for bathing, cooperative right now Abdomen soft, nontender. Objective Last Vital Signs Temp 99.1 F 04/16/20 07:47 Pulse 69 04/16/20 07:47 Resp 18 04/16/20 07:47 BP 168/77 H 04/16/20 07:47 Pulse Ox 95 04/16/20 07:47 Laboratory Results - last 24 hr 04/13/20 04/15/20 04/16/20 23:08 18:45 06:25 WBC RBC Hgb 9.7 L Hct 29.6 L D MCV MCH MCHC RDW Plt Count MPV Sodium 140 Potassium 3.1 L D Chloride 106 Carbon Dioxide 23.9 Anion Gap 10.1 BUN 19 H D Creatinine 1.28 H Estimated GFR/1.73 m2 39.92 Glucose 76 Calcium 7.8 L Magnesium 1.6 L Patient ABO/Rh B Positive Antibody Screen Negative Crossmatch See Detail 04/16/20 06:25 WBC 8.40 RBC 2.97 L Hgb 9.2 L Hct 27.4 L MCV 92.3 MCH 31.0 MCHC 33.6 RDW 14.9 H Plt Count 166 MPV 9.5 Sodium Potassium Chloride Carbon Dioxide Anion Gap BUN Creatinine Estimated GFR/1.73 m2 Glucose Calcium Magnesium Patient ABO/Rh Antibody Screen Crossmatch
[2020-04-16] MEDS: MAGNESIUM SULFATE 2 GM/50 ML BAG IVPB (09:02)
[2020-04-16] MEDS: buPROPion-CR 100 MG TABCR PO (09:03)
[2020-04-16] MEDS: Potassium Chloride 20 MEQ TABCR 40 MEQ PO (09:03)
[2020-04-16] MEDS: FLUoxetine 20 MG CAP 40 MG PO (09:03)
[2020-04-16] MEDS: Isosorbide Mononitrate 30 MG TABCR PO (09:04)
[2020-04-16 09:10] VITALS: O2SAT 95
--- NOTE | 2020-04-16 11:45 | PT.INIE ---
Date of service: 04/16/20 Time of Service: 11:45 PT Notes Visit Reasons: LOWER GI BLEED Physical Therapy Inpatient Initial Evaluation Date: 04/16/2020 Referring Doctor: Bell Aguirre NP PT Orders: PT CONSULT: Eval/treat. Precautions: Dementia. Fall. Standard. Activity as tolerated. Patient Profile/Admitting Diagnosis: Pratik is an 80-year-old female with diagnosis acute GI bleed. PMHX: Medical History Agitation due to dementia Atelectasis Bacteriuria (12/28/17) Barretts esophagus (10/14/15) Cataract Chronic constipation (12/15/17) Chronic obstructive lung disease Confusion Deficient knowledge of incentive spirometer family to work with her to use IS hourly while awake Dementia Depression Diastolic murmur of aorta DNI (do not intubate) DNR (do not resuscitate) Be catheter in place Frequent falls having hard time using walker due to cognitive impairment GI bleed a. Probably upper GI bleed. b. Discharged on a PPI. Grief Hallucinations due to late onset dementia both visual and auditory visual pronounced Hard of hearing Insomnia Lewy body dementia with behavioral disturbance returned to her normal functioning with tx for UTI Long-term current use of thyroid hormone replacement therapy Loss of vision Lower GI bleeding Oxygen dependent uses it prn Palliative care patient POLST (Physician Orders for Life-Sustaining Treatment) signed 2015; reviewed 2019 Recurrent UTI Sedentary lifestyle Self straight caths twice a day Sensorineural hearing loss, bilateral (02/23/18) FIT WITH HEARING AIDS 02/23/2018 DR ALONZO Suprapubic catheter Unstable gait Urinary obstruction sees Dr Montes, urology Urinary retention has suprapubic catheter January 2020 Vascular dementia Walker as ambulation aid cannot do this independently does need stand-by assistance. Surgical History Abdominal hysterectomy Wilks (Incontinence sling) Cerebral aneurysm clipping Colonoscopy - MAC EGD - MAC Open Carpal Tunnel release (11/25/15) RIGHT WRIST/DR. TAVERAS Repair of inguinal hernia bilateral Replacement of total knee joint bilateral Venacaval filter Pt. S-I-L unsure if she has this Social History/Home Situation: Unable to extract information from patient. Per care management notes, patien's family provides 24/7 care prior to hospital admission. Per medical history, patient requires FWW with SBA only at baseline. Equipment Owned/DME: FWW Subjective: Pratik appears calm and relaxed while seated on the bedisde recliner. Did not complain of any pain nor discomfort. Is very much concerned about putting her Tedyy bear away form her. She states that she wants to go home because her is waiting for her. Objective: General Observation: IV in R UE. Be catheter in place. Mental Status: Disoriented as to time, date, and place Pain: None reported ROM: Right Upper Extremity: Shoulder Flexion WFL. Shoulder abduction WFL. Elbow flexion WFL. Wrist flexion WFL. Opening and closing of hand WFL. Left Upper Extremity: Shoulder Flexion WFL. Shoulder abduction WFL. Elbow flexion WFL. Wrist flexion WFL. Opening and closing of hand WFL. Right Lower Extremity: Hip flexion WFL. Hip abduction WFL. Knee flexion WFL. Ankle dorsiflexion WFL. Ankle plantarflexion WFL. Left Lower Extremity: Hip flexion WFL. Hip abduction WFL. Knee flexion WFL. Ankle dorsiflexion WFL. Ankle plantarflexion WFL. Strength: Right Upper Extremity: Grossly 3/5 Left Upper Extremity: Grossly 3/5 Right Lower Extremity: Grossly 3-/5 Left Lower Extremity: Grossly 3-/5 Bed Mobility/Transfers: Sit to stand moderate assist with maximum verbal cueing for safety Stand to sit minimal assist with maximum verbal cueing for safety Bed to chair unable at this time as she is anxious about moving her legs for fear of falling; will need a second person for patient security/safety Chair to bed unable at this time as she is anxious about moving her legs for fear of falling; will need a second person for patient security/safety Gait: Unable. Having a hard time understanding simple commands. Balance: Static Sitting: Good Dynamic Sitting: Good Static Standing: Unable Dynamic Standing: Unable Special Tests: Mobility Limitations Standardized Measure [facility] AM-PAC 6 clicks Basic Mobility Inpatient Short Form: Raw Score: 11 CMS Score: 72% deficit Informed Consent/Education: Patient instructed in purpose of PT consult and plan of care. Assessment: Pratik presents with significant functional mobility decline requiring assist of 2 for all mobility ADL performance. Is fearful of taking a step at this time. Per STENO POOL SUPERVISOR Jason, her and STENO POOL SUPERVISOR Joon were able to transfer patient earlier by staying on each side of her. Patient presents with clinical signs and symptoms consistent with current/admitting diagnoses that have resulted to mobility limitations, gait instability, generalized weakness, and impairment of motor control as demonstrated by the following impairment level findings: 1. Decreased strength to B LE major muscle groups 2. Impaired sitting/standing balance 3. Impaired activity tolerance Impairments are contributing to the following functional limitations: 1. Dependent bed mobility skills 2. Increased dependence with transfers 3. Inability to safely ambulate without assistive device and physical assistance 4. Increase completion time for mobility ADL performance 5. Increased fall risk 6. Inability to negotiate steps alone safely Patient is assessed as a 15133 high complexity based on the following: History: 80-year-old female with impairment level findings, functional limitations, and past medical history as indicated above Examination: Demonstrable impairment in strength, balance, and mobility level with underlying impairments and functional limitations as documented above Presentation:Evolving Decision Makin high complexity Goals: Goals X1 week 1. Supine-Sit independent 2. Sit-Supine independent 3. Sit-Stand contact-guard assist 4. Stand-Sit contact-guard assist 5. Bed-Chair contact-guard assist 6. Chair-Bed contact-guard assist 7. Minimal assist gait on level surface with use of least restrictive device for at least 300 feet without report of pain nor dyspnea 8. Good static and dynamic standing balance/tolerance Plan of Care/Treatment Plan: 1-2x/day, 7 days/week x 1 week. Plan of care has been reviewed with the COMMERCIAL LEASE ADMINISTRATOR providing the service under Physical Therapy direction. Initiate Physical Therapy intervention for strengthening, bed mobility, transfers, gait, stairs, balance training, use of assistive device. DISCHARGE RECOMMENDATIONS: Patient will require assist of 2 for all mobility ADL performance and family may not be able to provide said amount of help each time at home at this time. Patient will benefit from half-way facility placement for continued skilled physical therapy services in order to progress mobility level, strength, and balance in preparation for a safe discharge to home. TREATMENT CODE/TIME: 79024 x 20 minutes, 57964 x 12 minutes beginning at 11:45 AM. Thank you for the opportunity to participate in the care of this patient. Dalila Payan PT, DPT, CLT [facility] [place], [place]
--- NOTE | 2020-04-16 12:09 | W.NUTCONSULT ---
Date of service: 04/16/20 Time of Service: 12:09 Nutritional Consult ASSESSMENT: 80 year old female admitted with acute GI bleed, with UTI and diverticulitis. PMH: dementia. Medical record indicates weight loss of 15 lbs in last 3 months (-10% wt loss) indicating significant weight loss and risk for nutritional decline. Advanced to soft diet today. Unable to met with Marybea today (sleeping). Recent weight loss indicates moderate malnutrition in context of chronic illness. Pt considered at high nutritional risk. Will provide meal preferences to optimize nutritional intake. NUTRITIONAL DIAGNOSIS: Moderate Malnutrition in context of chronic illness INTERVENTION: advance diet as tolerated MONITORING AND EVALUATION: will continue to follow po intake, weight and labs Time Spent in Nutritional Counseling and Treatment: 0 time spent face to face
[2020-04-16] MEDS: Bacitracin 1 PACKET (15:30)
--- NOTE | 2020-04-16 15:46 | PT.INTREAT ---
Date of service: 04/16/20 Time of Service: 15:47 PT Notes Visit Reasons: LOWER GI BLEED Inpatient Physical Therapy Treatment Note [facility] Date: 04/16/20 PRECAUTIONS: Fall SUBJECTIVE: Pratik is confused, she states that she cannot walk, and refuses PT at first. She agrees to participate in PT, following significant encouragement, but only agrees to standing, not walking. OBJECTIVE: PAIN: No c/o pain BED MOBILITY/TRANSFERS Sit-stand: Mod A x2 Stand-sit: Min A x2 GAIT Assistive Device: FWW Weight bearing: Full Assist: Min A x2 Distance: 1 step backward Deviation: Tactile cueing for FWW mechanics Static stand x2 minutes with Min A x2 and FWW support. THEREX: Patient was instructed in ankle pump exercise, she completed ankle pump x2, then refused further participation in therex. ASSESSMENT: Patient appears limited due to confusion. She continues to require assist with transfers and standing for safety. PLAN: Continue gait training and strengthening, as tolerated. TREATMENT CODE/TIME: 20 minutes; [id number]
--- NOTE | 2020-04-16 16:01 | PDOC.CMPRO ---
- If Service Date Differs Date of service: 04/16/20 Time of Service: 16:02 Care Management Progress Note S/O: Pratik was sitting up in her chair when CM met with her. Her daughter was in the room talking with Dr. Sandoval. Pratik will be transitioning home with Hospice support tomorrow, per . She will need a hospital bed with rails, which Hospice will provide, through [facility]. Hina will not be able to pick her up tomorrow, but her , Fredy will be available and will bring her home. CM spoke to the supervisor chassis assembly regarding the visitor policy. As Pratik will be transitioning to Hospice, this should not be a problem. CM will continue to follow. A: Pratik is an 80 year old female admitted to [facility] on 04/15/20 with GI bleeding. P: Anticipate Pratik will return home to the care of her daughter, Hina, once medically cleared. Palliative will see Pratik to discuss ongoing goals of care. She will resume HH RN once discharged, and will be driven home by Hina in a private vehicle. She will follow up with her PCP and discharge plan of care. CM will continue to follow.
[2020-04-16] MEDS: Bacitracin 1 PACKET TP (17:16)
[2020-04-16 18:50] VITALS: BP 162/93; PULSE 74; RESP 19; TEMP 37; O2SAT 94
[2020-04-16] MEDS: Rosuvastatin 10 MG TAB PO (19:23)
[2020-04-16] MEDS: Amoxicillin 875/Clav. 125 TAB PO (19:24)
[2020-04-16] MEDS: Temazepam 15 MG CAP PO (20:45)
[2020-04-16 22:50] VITALS: BP 155/81; PULSE 74; RESP 17; TEMP 37.4; O2SAT 94
[2020-04-17 05:35] VITALS: O2SAT 94
--- NOTE | 2020-04-17 08:18 | W.PM.PROGNOT ---
Documented by User: KANDI Horner 04/17/20 08:20 Date of Service Date of service: 04/17/20 Time of Service: 08:18 Assessment and Plan Assessment and plan (1) Acute GI bleeding: Status: Acute Assessment and plan: Improving. Doing with with soft diet. PO Antibiotics Hgb stable Subjective Subjective Interval history since last seen: Sitting up in a chair. Denies abdominal pain this morning. Exam Const General: cooperative, healthy appearing and comfortable Orientation: alert and awake Resp Effort & Inspection: normal respiratory effort, no audible wheezes and no cough GI Palpation: soft, no guarding and nontender Objective Last Vital Signs Temp 37.4 C 04/16/20 22:50 Pulse 74 04/16/20 22:50 Resp 17 04/16/20 22:50 BP 155/81 H 04/16/20 22:50 Pulse Ox 94 04/17/20 05:35 Laboratory Results - last 24 hr 04/17/20 04/17/20 05:35 05:35 WBC Cancelled RBC Cancelled Hgb Cancelled Hct Cancelled MCV Cancelled MCH Cancelled MCHC Cancelled RDW Cancelled Plt Count Cancelled MPV Cancelled Sodium Cancelled Potassium Cancelled Chloride Cancelled Carbon Dioxide Cancelled Anion Gap Cancelled BUN Cancelled Creatinine Cancelled Estimated GFR/1.73 m2 Cancelled Glucose Cancelled Calcium Cancelled Magnesium Cancelled Documented by User: Elvira Russell MD 04/17/20 12:57
[2020-04-17 08:59] VITALS: BP 144/79; PULSE 81; RESP 20; TEMP 36.9; O2SAT 94
[2020-04-17] MEDS: FLUoxetine 20 MG CAP 40 MG PO (09:07)
[2020-04-17] MEDS: Isosorbide Mononitrate 30 MG TABCR PO (09:07)
[2020-04-17] MEDS: buPROPion-CR 100 MG TABCR PO (09:07)
[2020-04-17] MEDS: Amoxicillin 875/Clav. 125 TAB PO (09:07)
--- NOTE | 2020-04-17 10:22 | W.PALLCONSUL ---
History of Present Illness Narrative: I am familiar with Pratik as I took care of her Herbert on hospice until he in Aug 2018. I have been following her for palliative care since before his . She has multiple severe co-morbidities. She has severe COPD; she has a suprapubic catheter in place and recurrent UTIs; she has a history of hallucinations, worse with hospitalizations; she has Lewy Body dementia. She was admitted with a Gi bleed, presumed to be diverticular. All of her stool tests were heme + during this hospitalization. Her Hgb came up to 9.7 but is already down to 9.2. Pratik had made it clear to her family in the past that she does NOT want any further work up or testing of her health problems. She does not want an upper or lower endoscopy. At the time I am seeing her, she is too confused to answer me. She is hallucinating. SHe is fixated on wanting to remove her IV line, which apparently is a PICC line (just put in the night before my visit.) She wants to go home. She has a history of severe delirium in the hospital. She usually come close to her baseline once back in her home environment, though this isn't alWAYS true. After sitting with Fredrick in her room, talking to the hospitalist team, care managers and her nurses, I met with her daughter, Hina, with whom she lives. Hina has been anticipating her mother's decline. She wants to bring her home on hospice. This will be arranged in time for discharge. Consults Consult date: 04/16/20 Requesting physician: Suzanne Wang Assessment and Plan Assessment and plan (1) Loss of vision: Status: Chronic Assessment and plan: Not wearing her glasses. Usually refuses. Limited vision. Contributing to her dementia/confusion. (2) Acute GI bleeding: Status: Acute Assessment and plan: Likely diverticular, however refuses any work up. No upper endoscopy. No colonoscopy. All stools have been heme + since admission. Did receive blood transfusion on this admission, 3 units PRBCs. Despite this, Hgb still dropping. Suspect slow bleed ongoing. (3) Suprapubic catheter: Status: Chronic Assessment and plan: In place x several months. Still having recurrent UTIs. Does not try to pull out. Urology at [facility] following. (4) Agitation due to dementia: Status: Resolved Assessment and plan: Nurses report multiple attempts and successes at removing IV access. Now with midline, per nurses. They will remove after my visit as she is insistent on pulling it out herself. Needs nursing help. (5) Frequent falls: Status: Chronic Assessment and plan: Been going on x about 1 year. Has family with her all the time. If left alone while awake, will fall. Cannot remember/understand how to use her walker. (6) Vascular dementia: Status: Chronic Assessment and plan: Has mixed dementia of uncertain type--has aspects of Lewy Body and vascular. Never drank to excess. (7) Sensorineural hearing loss, bilateral: Status: Chronic Assessment and plan: Usually doesn't wear her hearing aids as she takes them out and throws them away. Family has bought more than one pair. Hearing is VERY POOR. (8) Chronic obstructive lung disease: Status: Chronic Assessment and plan: Previous heavy smoker. Has oxygen at home. Wears it prn. (9) Goals of care, counseling/discussion: Status: Acute Assessment and plan: Pratik and her family do not want her to return to the hospital. She gets acutely delirious each time. She does not want interventions or tests. Her was on hospice and in Aug 2018 at their previous home. (After his , Pratik moved in first with her son and then with her daughter, where she continues to live.) We have been discussing hospice for about 6 months. Pratik has continued to decline over this time period. Now with her GI bleed, worsening dementia with agitation, and COPD she qualifies. This will allow her to stay home, which is her primary goal, as it is of her family. (10) Encounter for hospice care discussion: Status: Acute Assessment and plan: Daughter Hina, who is Pratik's DPOA, very much wants her mother to go home on hospice. She is familiar with the program from her dad's final illness. Plan is for Pratik to be admitted to hospice upon return home. Review of Systems Narrative: Fredrick is confused, trying to unwrap and remove her IV access, she is not oriented except to self, she is slightly agitated but can be redirected. She is anxious. Elderly, frail, cooperative if sitting quietly. Eyes: poor vision, not wearing her glasses HEENT: very poor hearing, not wearing her hearing aids; no LAD or JVD Lungs CTAB Heart: has murmur, irregularly irregular GI: soft, slightly tender in BLQ, + bs wnl, no obvious masses, overweight Ext: trace edema Neuro: not oriented except to self, does seem to recognize her daughter, language is garbled and word-salad skin: some bruising, dry overall psych: anxious, wanting to go home, overwhelmed by hospitalization [facility] Medical History Agitation due to dementia Atelectasis Bacteriuria (12/28/17) Barretts esophagus (10/14/15) Cataract Chronic constipation (12/15/17) Chronic obstructive lung disease Confusion Deficient knowledge of incentive spirometer family to work with her to use IS hourly while awake Dementia Depression Diastolic murmur of aorta DNI (do not intubate) DNR (do not resuscitate) Be catheter in place Frequent falls having hard time using walker due to cognitive impairment GI bleed a. Probably upper GI bleed. b. Discharged on a PPI. Grief Hallucinations due to late onset dementia both visual and auditory visual pronounced Hard of hearing Insomnia Lewy body dementia with behavioral disturbance Long-term current use of thyroid hormone replacement therapy Loss of vision Lower GI bleeding Oxygen dependent uses it prn Palliative care patient POLST (Physician Orders for Life-Sustaining Treatment) signed 2015; reviewed 2019 Recurrent UTI Sedentary lifestyle Self straight caths twice a day Sensorineural hearing loss, bilateral (02/23/18) FIT WITH HEARING AIDS 02/23/2018 DR ALONZO Suprapubic catheter Unstable gait Urinary obstruction sees Dr Montes, urology Urinary retention has suprapubic catheter January 2020 Vascular dementia Walker as ambulation aid cannot do this independently does need stand-by assistance. Surgical History Abdominal hysterectomy Wilks (Incontinence sling) Cerebral aneurysm clipping Colonoscopy - MAC EGD - MAC Open Carpal Tunnel release (11/25/15) RIGHT WRIST/DR. TAVERAS Repair of inguinal hernia bilateral Replacement of total knee joint bilateral venacaval filter Pt. S-I-L unsure if she has this Family History Daughter Depression Sister , age 82 from hemorrhagic stroke Dementia Stroke Son No problems noted. Social History Smoking/Tobacco Use Status: Former Tobacco Use Quit Date: 07/17/69 Tobacco: How many years used: 50 Second Hand Exposure: No Alcohol Intake: former Drug use: Never Substance use type: does not use Caregiver/Support person: Yes Household members: family Housing: house Number of Children: 2 number of grandchildren: 5 Communication Needs: Hard of Hearing and Corrective Lenses Education Level: high school Do you need help understanding health information?: Always current occupation: retired Pets and animals: Yes What is your relationship status?: How often do you talk on the phone with friends or family?: three or more times per week How often do you get together with friends or relatives?: three or more times per week Panel score (0-1 are the most socially isolated patients): 1 What type of physical activity do you participate in: assisted ambulation and irregular exercise Duration: < 15 minutes/day Special paramjit needs: No Agree to transfusion: Yes Seatbelt use: always Working smoke detector in home: Yes Do you feel safe at home: Yes Do you feel safe in your relationship?: Yes Additional Social history: Lives with daughter Hina, her , son, [id number] and 3 grandchildren. Happier now than she has been. Likes lots of activity. Usually, pre Covid 19, goes to [place] regularly. Not walking much. Falling again. Poor sense of balance. Legs give out. Weak. Won't do PT. Exam Const General: cooperative, no acute distress, anxious, frail appearing and ill appearing Nutritional Appearance: overweight Orientation: alert, awake and confused Limitations: other limitations (advanced dementia, unable to provide history) HENFL Head: normal to inspection, normocephalic and atraumatic Ears: hearing grossly impaired Face and sinus: dry mucous membranes Resp Effort & Inspection: normal respiratory effort Auscultation: crackles bilaterally at the base Cardio Rate: regular rate Rhythm: regular rhythm Heart Sounds: murmur systolic IV/ GI Inspection: normal to inspection Palpation: soft Auscultation: normal bowel sounds General: other (suprapubic catheter, concentrated urine) Neuro General: patient alert, patient awake and moves all extremities Cognition: abnormal cognition Speech: abnormal speech Extrem General: normal to inspection, full ROM and no pedal edema Psych Mood: anxious mood Affect: anxious affect Thought Process: impoverished Thought Content: compulsions (repeatedly tries to remove her IV, has done so several times during admit) Insight: poor Judgment: poor Results Last Vital Signs Temp 98.4 F 04/17/20 08:59 Pulse 81 04/17/20 08:59 Resp 20 04/17/20 08:59 BP 144/79 H 04/17/20 08:59 Pulse Ox 94 04/17/20 08:59 Labs Result diagrams: 04/16/20 06:25 04/16/20 06:25 Labs: Laboratory Results - last 24 hr 04/17/20 04/17/20 05:35 05:35 WBC Cancelled RBC Cancelled Hgb Cancelled Hct Cancelled MCV Cancelled MCH Cancelled MCHC Cancelled RDW Cancelled Plt Count Cancelled MPV Cancelled Sodium Cancelled Potassium Cancelled Chloride Cancelled Carbon Dioxide Cancelled Anion Gap Cancelled BUN Cancelled Creatinine Cancelled Estimated GFR/1.73 m2 Cancelled Glucose Cancelled Calcium Cancelled Magnesium Cancelled
--- NOTE | 2020-04-17 12:17 | W.PM.DS.N ---
Date of service: 04/17/20 Time of Service: 12:29 DS: Diagnosis Discharge Diagnosis (1) Acute GI bleeding: Status: Acute Discharge Plan Disposition Patient Disposition: HOME W/HOME HEALTH SERVICE Condition: Serious Discharge Details Reason For Visit: LOWER GI BLEED Admit Date/Time: 04/14/20 01:36 Admit Provider: Fredy Cho Attending Provider: Fredy Cho Primary Care Provider: Sabine Ludwig Hospital Course Hospital Course: This is a 80 female with history of diverticular bleed, and advanced Lewy body dementia -- presented to the emergency department for evaluation of acute rectal bleeding. The work up in the ED showed Hct 32 (baseline approx 35) abd CT demonstrating diverticulosis and question mild diverticulitis of sigmoid. She continued to have episodes of bleeding while in the ED. She was given Rocephin and Flagyl and ordered for 2 unit pRBC. She was admitted to med/surg for further management. Her behaviors did worsen after admission likely due to acute on chronic delirium from her dementia but it was thought possibly worsened due to the Flagyl so she was switched to Zosyn. Her hemoglobin and hematocrit did drop after having some more bloody stools requiring 1 more unit of packed red blood cells for a total of 3. After this her bleeding did subside and her H&H remained stable. Surgical services was following and decision not to scope her was agreed upon by all. She did undergo a palliative/hospice care consult and will be discharged to home on hospice care. She will continue a 7-day course of Augmentin to treat her symptomatic diverticular disease. She has been afebrile she is eating and drinking she has remained pleasantly confused. She did have a urinary tract infection which did grow Pseudomonas that was sensitive to the Zosyn she does have an indwelling suprapubic catheter so was thought to maybe represent colonization. We are stopping this treatment after 8 doses accordingly. She will have further medication orders and care per hospice. Discharge plan was discussed with Dr. Workman who is in agreement Home Meds and New Rx's Prescriptions: New amoxicillin-pot clavulanate 875-125 mg Tablet 1 tab PO BID Qty: 9 RF: 0 Continued bupropion HCl [Wellbutrin SR] 100 MG tablet extended release 12 hr 100 mg PO DAILY RF: 0 fluoxetine [Prozac] 20 MG capsule 40 mg PO DAILY RF: 0 temazepam 15 mg capsule 15 mg PO QHS PRN (Reason: sleep) Qty: 30 RF: 3 isosorbide mononitrate 30 MG tablet extended release 24 hr 30 mg PO DAILY RF: 0 omeprazole 20 MG capsule,delayed release(DR/EC) 40 mg PO HS RF: 0 rosuvastatin [Crestor] 10 MG tablet 10 mg PO QPM RF: 0 Discontinued cholecalciferol (vitamin D3) 1,000 unit capsule 1,000 unit PO DAILY RF: 0 levothyroxine 100 mcg capsule 100 mcg PO DAILY Qty: 30 RF: 2 cefdinir 300 mg capsule 300 mg PO BID Qty: 14 RF: 0 meclizine 12.5 mg tablet 12.5 mg PO HS PRNRF: 0 Discharge Instructions Instructions: Diverticulitis (DC) Additional Instructions: Home care and medications per hospice services. Stand Alone Forms: Nursing Discharge Form Referrals: Sabine Ludwig [Primary Care Provider] - 04/29/20 8:00 am Activity:: Activity as Tolerated Equipment/Supplies:: No Equipment Needed Diet:: As Tolerated Discharge Orders Discharge Orders: Discharge Order (Routine); Ordered 04/17/20 Ordered By: Bell Aguirre Discharge Data Discharge Date/Time-TO BE ENTERED AT DEPARTURE: 04/17/20 13:40 DS: Summary Status at Discharge Functional status at discharge: uses cane/walker (And assistance) Overall status at discharge: patient is back to baseline (Likely at her baseline) Mental Status: other (Demented and confused) Speech and Movement: speech and movement normal Mood: congruent mood Affect: normal affect Exam Const General: cooperative, healthy appearing (elderly female of stated age), comfortable and no acute distress Nutritional Appearance: overweight Orientation: alert, awake and confused Limitations: other limitations (advanced dementia, unable to provide history) [facility] Head: normal to inspection, normocephalic and atraumatic Mouth: oral mucosae normal Resp Effort & Inspection: normal respiratory effort Auscultation: crackles bilaterally at the base Cardio Rate: regular rate Rhythm: regular rhythm Heart Sounds: murmur systolic IV/ GI Inspection: normal to inspection Palpation: soft Auscultation: normal bowel sounds General: other (suprapubic catheter, concentrated urine) Neuro General: patient alert, patient awake, patient oriented x3 and moves all extremities Extrem General: normal to inspection, full ROM and no pedal edema Psych Speech and Movement: speech and movement normal Mood: congruent mood Affect: normal affect DS: Data Vitals/I&O Vitals and I&O: Vital Signs Temperature 36.9 C 04/17/20 08:59 Temperature Source Tympanic 04/17/20 08:59 Pulse 81 04/17/20 08:59 Pulse Rhythm Regular 04/17/20 09:00 Pulse 77 04/14/20 02:40 Respiratory Rate 20 04/17/20 08:59 Respiratory Effort Non-Labored 04/17/20 09:00 Respiratory Depth Normal 04/17/20 09:00 Respiratory Pattern Normal 04/17/20 09:00 Blood Pressure 144/79 H 04/17/20 08:59 Blood Pressure Mean 93 04/14/20 02:01 Blood Pressure Position Supine 04/13/20 23:01 Pulse Oximetry 94 04/17/20 08:59 Oxygen Delivery Method Room Air 04/17/20 08:59 Oxygen Flow Rate 0 04/17/20 08:59 Pain Level 0 04/17/20 09:00 Comment 04/17/20 09:00 Intake & Output 04/16/20 04/17/20 04/17/20 23:59 11:59 23:59 Intake Total 480 / 1515 420 / 420 Output Total 500 / 1200 400 / 400 Balance -20 / Intake: Oral 480 / 600 420 / 420 Output: Urine 500 / 1200 400 / 400 Other: Urine Color Light Marcela Straw Urine Appearance Clear Cloudy Stool Occult Blood Positive Stool Size Small Smear Stool Characteristics Formed Soft Brown Data Completed and Pending Labs on day of discharge: Labs from last 24 hours 04/17/20 04/17/20 05:35 05:35 WBC Cancelled RBC Cancelled Hgb Cancelled Hct Cancelled MCV Cancelled MCH Cancelled MCHC Cancelled RDW Cancelled Plt Count Cancelled MPV Cancelled Sodium Cancelled Potassium Cancelled Chloride Cancelled Carbon Dioxide Cancelled Anion Gap Cancelled BUN Cancelled Creatinine Cancelled Estimated GFR/1.73 m2 Cancelled Glucose Cancelled Calcium Cancelled Magnesium Cancelled FOR[facility], [facility] Medical History (Updated 04/17/20 @ 10:22 by Sheba Sandoval MD) Agitation due to dementia Atelectasis Bacteriuria (12/28/17) Barretts esophagus (10/14/15) Cataract Chronic constipation (12/15/17) Chronic obstructive lung disease Confusion Deficient knowledge of incentive spirometer family to work with her to use IS hourly while awake Dementia Depression Diastolic murmur of aorta DNI (do not intubate) DNR (do not resuscitate) Be catheter in place Frequent falls having hard time using walker due to cognitive impairment GI bleed a. Probably upper GI bleed. b. Discharged on a PPI. Grief Hallucinations due to late onset dementia both visual and auditory visual pronounced Hard of hearing Insomnia Lewy body dementia with behavioral disturbance Long-term current use of thyroid hormone replacement therapy Loss of vision Lower GI bleeding Oxygen dependent uses it prn Palliative care patient POLST (Physician Orders for Life-Sustaining Treatment) signed 2015; reviewed 2019 Recurrent UTI Sedentary lifestyle Self straight caths twice a day Sensorineural hearing loss, bilateral (02/23/18) FIT WITH HEARING AIDS 02/23/2018 DR ALONZO Suprapubic catheter Unstable gait Urinary obstruction sees Dr Montes, urology Urinary retention has suprapubic catheter January 2020 Vascular dementia Walker as ambulation aid cannot do this independently does need stand-by assistance. Surgical History Abdominal hysterectomy Wilks (Incontinence sling) Cerebral aneurysm clipping Colonoscopy - MAC EGD - MAC Open Carpal Tunnel release (11/25/15) RIGHT WRIST/DR. TAVERAS Repair of inguinal hernia bilateral Replacement of total knee joint bilateral venacaval filter Pt. S-I-L unsure if she has this Family History Daughter Depression Sister , age 82 from hemorrhagic stroke Dementia Stroke Son No problems noted. Social History Smoking/Tobacco Use Status: Former Tobacco Use Quit Date: 07/17/69 Tobacco: How many years used: 50 Second Hand Exposure: No Alcohol Intake: former Drug use: Never Substance use type: does not use Caregiver/Support person: Yes Household members: family Housing: house Number of Children: 2 number of grandchildren: 5 Communication Needs: Hard of Hearing and Corrective Lenses Education Level: high school Do you need help understanding health information?: Always current occupation: retired Pets and animals: Yes What is your relationship status?: How often do you talk on the phone with friends or family?: three or more times per week How often do you get together with friends or relatives?: three or more times per week Panel score (0-1 are the most socially isolated patients): 1 What type of physical activity do you participate in: assisted ambulation and irregular exercise Duration: < 15 minutes/day Special paramjit needs: No Agree to transfusion: Yes Seatbelt use: always Working smoke detector in home: Yes Do you feel safe at home: Yes Do you feel safe in your relationship?: Yes Additional Social history: Lives with daughter Hina, her , son, [id number] and 3 grandchildren. Happier now than she has been. Likes lots of activity. Usually, pre Covid 19, goes to [place] regularly. Not walking much. Falling again. Poor sense of balance. Legs give out. Weak. Won't do PT.
--- NOTE | 2020-04-17 16:33 | CMDISCH_ITS ---
- If Service Date Differs Date of service: 04/17/20 Time of Service: 16:33 LACE Index Scoring Tool - Questions: Length of Stay (in days): 4 - 6 Acuity (Admit via E.D.?): Yes Comorbidities: Chronic Pulmonary Disease, Dementia E.D. Visits: 2 - Answers: Total Score: 14 Risk of Readmission: High Risk Care Management Discharge Reason for Hospitalization: Lower GI Bleed Discharge Plan: Pratik will discharge home with her family today. She will transition to Hospice care once home. Hospice has coordinated a hospital bed, delivered to her home today by [facility]. Pratik's family will be providing 24/ care, keeping her safe and comfortable. Patient/Family Education Needs: Review discharge instructions, discussion of expectations for Hospice care. Services Needed at Discharge: DME Agency ([facility]), Home Health Care Services (Hospice)
--- NOTE | 2020-04-20 11:30 | INDS_ITS ---
Date of service: 04/20/20 Time of Service: 11:30 PT Notes Visit Reasons: LOWER GI BLEED Physical Therapy Inpatient Discharge Summary Date: 04/20/2020 Date of service: 04/16/2020 only This is a clinical summary of care provided on the duration of dates listed abov e. No charge was made in the completion of this documentation. Referring Doctor: Bell Aguirre NP PT Orders: PT CONSULT: Eval/treat. Precautions: Dementia. Fall. Standard. Activity as tolerated. Patient Profile/Admitting Diagnosis: Pratik is an 80-year-old female with diagnosis acute GI bleed. PMHX: Medical History Agitation due to dementia Atelectasis Bacteriuria (12/28/17) Barretts esophagus (10/14/15) Cataract Chronic constipation (12/15/17) Chronic obstructive lung disease Confusion Deficient knowledge of incentive spirometer family to work with her to use IS hourly while awake Dementia Depression Diastolic murmur of aorta DNI (do not intubate) DNR (do not resuscitate) Be catheter in place Frequent falls having hard time using walker due to cognitive impairment GI bleed a. Probably upper GI bleed. b. Discharged on a PPI. Grief Hallucinations due to late onset dementia both visual and auditory visual pronounced Hard of hearing Insomnia Lewy body dementia with behavioral disturbance returned to her normal functioning with tx for UTI Long-term current use of thyroid hormone replacement therapy Loss of vision Lower GI bleeding Oxygen dependent uses it prn Palliative care patient POLST (Physician Orders for Life-Sustaining Treatment) signed 2015; reviewed 2019 Recurrent UTI Sedentary lifestyle Self straight caths twice a day Sensorineural hearing loss, bilateral (02/23/18) FIT WITH HEARING AIDS 02/23/2018 DR ALONZO Suprapubic catheter Unstable gait Urinary obstruction sees Dr Montes, urology Urinary retention has suprapubic catheter January 2020 Vascular dementia Walker as ambulation aid cannot do this independently does need stand-by assistance. Surgical History Abdominal hysterectomy Wilks (Incontinence sling) Cerebral aneurysm clipping Colonoscopy - MAC EGD - MAC Open Carpal Tunnel release (11/25/15) RIGHT WRIST/DR. TAVERAS Repair of inguinal hernia bilateral Replacement of total knee joint bilateral Venacaval filter Pt. S-I-L unsure if she has this Social History/Home Situation: Unable to extract information from patient. Per care management notes, stefano's family provides / care prior to hospital admission. Per medical history, patient requires FWW with SBA only at baseline. Equipment Owned/DME: FWW Subjective: NT. See most recent RESOURCE MANAGEMENT SPECIALIST notes. Objective: General Observation: NT. See most recent RESOURCE MANAGEMENT SPECIALIST notes. Mental Status: NT. See most recent RESOURCE MANAGEMENT SPECIALIST notes. Pain: NT. See most recent RESOURCE MANAGEMENT SPECIALIST notes. ROM: Right Upper Extremity: Shoulder Flexion WFL. Shoulder abduction WFL. Elbow flexion WFL. Wrist flexion WFL. Opening and closing of hand WFL. Left Upper Extremity: Shoulder Flexion WFL. Shoulder abduction WFL. Elbow flexi on WFL. Wrist flexion WFL. Opening and closing of hand WFL. Right Lower Extremity: Hip flexion WFL. Hip abduction WFL. Knee flexion WFL. Ankle dorsiflexion WFL. Ankle plantarflexion WFL. Left Lower Extremity: Hip flexion WFL. Hip abduction WFL. Knee flexion WFL. Ankle dorsiflexion WFL. Ankle plantarflexion WFL. Strength: Right Upper Extremity: Grossly 3/5 Left Upper Extremity: Grossly 3/5 Right Lower Extremity: Grossly 3-/5 Left Lower Extremity: Grossly 3-/5 Bed Mobility/Transfers: Sit to stand moderate assist with maximum verbal cueing for safety Stand to sit minimal assist with maximum verbal cueing for safety Bed to chair unable at this time as she is anxious about moving her legs for fear of falling; will need a second person for patient security/safety Chair to bed unable at this time as she is anxious about moving her legs for fear of falling; will need a second person for patient security/safety Gait: Unable. Having a hard time understanding simple commands. Balance: Static Sitting: Good Dynamic Sitting: Good Static Standing: Unable Dynamic Standing: Unable Assessment: Pratik presents with significant functional mobility decline requiring assist of 2 for all mobility ADL performance. Is fearful of taking a step at this time. Per director of home care hospice, patient converted to hospice level of care as of 04/17/2020 without any new orders for physical therapy services. Patient continues to present with clinical signs and symptoms consistent with current/admitting diagnoses that have resulted to mobility limitations, gait instability, generalized weakness, and impairment of motor control as demonstrated by the following impairment level findings: 1. Decreased strength to B LE major muscle groups 2. Impaired sitting/standing balance 3. Impaired activity tolerance Impairments are doing to contribute to the following functional limitations: 1. Dependent bed mobility skills 2. Increased dependence with transfers 3. Inability to safely ambulate without assistive device and physical assistance 4. Increase completion time for mobility ADL performance 5. Increased fall risk 6. Inability to negotiate steps alone safely Goals: Goals X1 week 1. Supine-Sit independent NOT MET 2. Sit-Supine independent NOT MET 3. Sit-Stand contact-guard assist NOT MET 4. Stand-Sit contact-guard assist NOT MET 5. Bed-Chair contact-guard assist NOT MET 6. Chair-Bed contact-guard assist NOT MET 7. Minimal assist gait on level surface with use of least restrictive device for at least 300 feet without report of pain nor dyspnea NOT MET 8. Good static and dynamic standing balance/tolerance NOT MET DISCHARGE RECOMMENDATIONS: Patient will require assist of 2 for all mobility ADL performance and family may not be able to provide said amount of help each time at home at this time. Patient will benefit from [facility] for continued skilled physical therapy services in order to progress mobility level, strength, and balance in preparation for a safe discharge to home. TREATMENT CODE/TIME: NC. Thank you for the opportunity to participate in the care of this patient. Dalila Payan PT, DPT, CLT [facility] [place], [place]
== END 2020-04-17 13:40 | disposition home health service (06) | DRG 379 ==
LOC: ER 04-14 01:14 → MS 04-14 02:58
PROVIDERS: Nurse Practitioner Acute Care; Nurse Practitioner Family; Admitting Provider General Practice; Emergency Provider Student in an Organized Health Care Education/Training Program; PCP Nurse Practitioner; Visit Provider General Practice
DX: K57.33 Diverticulitis of large intestine without perforation or abscess with bleeding (principal); G31.83 Neurocognitive disorder with Lewy bodies; F02.80 Dementia in other diseases classified elsewhere, unspecified severity, without behavioral disturbance, psychotic disturbance, mood disturbance, and anxiety; Z66 Do not resuscitate; K22.70 Barrett's esophagus without dysplasia; K59.09 Other constipation; J44.9 Chronic obstructive pulmonary disease, unspecified; F32.9 Major depressive disorder, single episode, unspecified; H91.90 Unspecified hearing loss, unspecified ear; Z93.51 Cutaneous-vesicostomy status; R26.81 Unsteadiness on feet; E03.9 Hypothyroidism, unspecified; I10 Essential (primary) hypertension; D50.0 Iron deficiency anemia secondary to blood loss (chronic); R41.0 Disorientation, unspecified; T37.8X5A Adverse effect of other specified systemic anti-infectives and antiparasitics, initial encounter
CPT/HCPCS: 36410; 36415; 80048; 80053; 85027; 86850; 86900; 86901; 86920; 87077; 96361; 96365; 96367; 96368; 96375; 97116; 97163; 97530; 99222; 99231; 99232; 99233; 99239; 99253; 99255; 99285; U0003; 74176; 81003; 81015; 83605; 83735; 84439; 85014; 85018; 85025; 85610; 85730; 87086; 87186; 87324; J0131; J0696; J1941; J2060; J2543; J3475; P9016

== ENCOUNTER 2021-01-04 14:14 | Outpatient (REF) | payer MEDICARE, MEDICAID, SELFPAY ==
[2021-01-04 18:07] LABS: Bilirubin Small (Negative); Blood Small (Negative); Clarity Cloudy (Clear); Glucose Negative (Negative); Ketones Trace mg/dL (Negative); Leukocyte Esterase Small (Negative); Nitrite Negative (Negative); Specific Gravity 1.025 (1.005-1.025); Urobilinogen >=8.0 EU/dL (Up TO 0.2); pH 6.5 (5-8)
[2021-01-04 18:37] LABS: Bacteria Moderate HPF (Negative); Epithelial Cells Rare HPF (Negative); Mucus Negative (Negative); WBC 20-50 HPF (0-5)
[2021-01-04 18:38] LABS: C & S Indicated? Yes; Casts Negative LPF (Negative); Crystals Moderate Amorphous HPF (Negative); Other Cells Negative (Negative)
== END 2021-01-04 14:15 | disposition home or self-care (01) ==
LOC: NCHCN 14:14
PROVIDERS: PCP Nurse Practitioner; Visit Provider Nurse Practitioner
DX: N39.0 Urinary tract infection, site not specified (principal)
CPT/HCPCS: 87077; 81003; 81015; 87086; 87186

== ENCOUNTER 2021-01-18 17:16 | Outpatient (REF) | payer MEDICARE, MEDICAID, SELFPAY ==
[2021-01-18 19:01] LABS: Bilirubin Negative (Negative); Blood Small (Negative); Clarity Sl Cloudy (Clear); Glucose Negative (Negative); Ketones Negative (Negative); Leukocyte Esterase Small (Negative); Nitrite Negative (Negative); Specific Gravity 1.025 (1.005-1.025); Urobilinogen 0.2 EU/dL (Up TO 0.2)
[2021-01-18 19:13] LABS: Epithelial Cells Moderate HPF (Negative); WBC >50 HPF (0-5)
[2021-01-18 19:14] LABS: Bacteria Few HPF (Negative); C & S Indicated? Yes; Crystals Negative HPF (Negative); Mucus Heavy (Negative); Other Cells Mod Transitional (Negative)
== END 2021-01-18 17:17 | disposition home or self-care (01) ==
LOC: LBN 17:16
PROVIDERS: PCP Nurse Practitioner; Visit Provider Family Medicine
DX: N28.89 Other specified disorders of kidney and ureter (principal); Z87.440 Personal history of urinary (tract) infections; R82.998 Other abnormal findings in urine
CPT/HCPCS: 81003; 81015; 87086

== ENCOUNTER 2021-02-15 15:03 | Outpatient (REF) | payer MEDICARE, MEDICAID, SELFPAY ==
[2021-02-15 19:24] LABS: Bilirubin Negative (Negative); Blood Small (Negative); Clarity Cloudy (Clear); Glucose Negative (Negative); Ketones Negative (Negative); Leukocyte Esterase Moderate (Negative); Nitrite Positive (Negative); Specific Gravity 1.025 (1.005-1.025)
[2021-02-15 20:16] LABS: Bacteria Many HPF (Negative); C & S Indicated? C&S Done As Ordered; Casts Negative LPF (Negative); Crystals Negative HPF (Negative); Epithelial Cells Few HPF (Negative); Mucus Negative (Negative); WBC 20-50 HPF (0-5)
== END 2021-02-15 15:04 | disposition home or self-care (01) ==
LOC: LBN 15:03
PROVIDERS: PCP Nurse Practitioner; Visit Provider Student in an Organized Health Care Education/Training Program
DX: N39.0 Urinary tract infection, site not specified (principal)
CPT/HCPCS: 87077; 81003; 81015; 87086; 87186

== ENCOUNTER 2021-04-13 05:52 | Outpatient (REF) | payer MEDICARE, MEDICAID, SELFPAY ==
[2021-04-13 06:31] LABS: Bilirubin Negative (Negative); Blood Moderate (Negative); Clarity Sl Cloudy (Clear); Glucose Negative (Negative); Ketones Negative (Negative); Leukocyte Esterase Small (Negative); Nitrite Positive (Negative); pH 6.5 (5-8)
[2021-04-13 06:51] LABS: Bacteria Many HPF (Negative); C & S Indicated? C&S Done As Ordered; Casts Negative LPF (Negative); Crystals Negative HPF (Negative); Epithelial Cells Few HPF (Negative); Mucus Negative (Negative)
== END 2021-04-13 05:53 | disposition home or self-care (01) ==
LOC: LBN 05:52
PROVIDERS: PCP Nurse Practitioner; Visit Provider Family Medicine
DX: N39.0 Urinary tract infection, site not specified (principal)
CPT/HCPCS: 87077; 81003; 81015; 87086; 87186